=== PATIENT | female | born 1980 | race Caucasian/White ===

== ENCOUNTER 2023-05-09 08:20 | Outpatient (CLI) | payer OTHER, SELFPAY | END 2023-05-09 08:21 | disposition home or self-care (01) | LOC: NFLDREF 22:45 | PROVIDERS: PCP Family Medicine; Referring Provider Family Medicine; Visit Provider Family Medicine | DX: D34 Benign neoplasm of thyroid gland (principal); M54.50 Low back pain, unspecified; R53.83 Other fatigue; Z79.899 Other long term (current) drug therapy; E04.1 Nontoxic single thyroid nodule; Z87.898 Personal history of other specified conditions; Z13.6 Encounter for screening for cardiovascular disorders | CPT/HCPCS: 80053; 80061; 82378; 82652; 84443 ==

== ENCOUNTER 2023-05-15 13:35 | Outpatient (CLI) | payer OTHER, SELFPAY ==
--- NOTE | 2023-05-15 13:45 | CRLHL7_ITS ---
For Patients: As a result of the Century Cures Act, medical imaging exams and procedure reports are released immediately into your electronic medical record. You may view this report before your referring provider. If you have questions, please contact your health care provider. INDICATION: Low back pain. TECHNIQUE: Multiplanar multisequence noncontrast MR images acquired through the lumbar spine. COMPARISON: MRI lumbar spine 11/26/2018. FINDINGS: The lumbar lordosis is preserved. Mild leftward lumbar curvature. Vertebral heights maintained. No acute fracture. No T1 hypointense marrow replacing lesions. Normal conus terminates at an L1-2. T12-L1: No spinal canal or neural foraminal narrowing. L1-2: Mild disc degeneration. Shallow circumferential disc bulge. No spinal canal or neural foraminal narrowing. L2-3: Mild disc degeneration. Shallow left eccentric disc bulging and endplate spondylitic ridging. Small left dorsolateral annular fissure. No spinal canal narrowing. Mild left without right neural foraminal narrowing. L3-4: Trace retrolisthesis. Mild disc degeneration. Shallow posterior disc bulge with small dorsal annular fissure. Mild facet arthropathy. Minimal spinal canal narrowing. Minimal narrowing of the lateral recesses. No neural foraminal narrowing. L4-5: Jwcj-tx-ccmtktkg disc degeneration. Shallow posterior disc bulge. Bggy-zu-nfbeauwr facet arthropathy. Bilateral facet effusions. New edema within the right greater left posterior elements. Small subarticular synovial cysts measuring up to 5 mm contribute to worsening moderate left lateral recess narrowing. Minimal spinal canal narrowing. Mild left and minimal right neural foraminal narrowing. L5-S1: Nwmb-en-xlgjxuwe disc degeneration. Shallow posterior disc bulge. Jfzt-df-rhhhjxig facet arthropathy. No spinal canal or neural foraminal narrowing. IMPRESSION: 1. At L4-5, new small left subarticular synovial cysts contribute to worsening moderate left lateral recess narrowing with traversing left L5 nerve root encroachment/impingement. Xzan-gn-pnxgjipw facet arthropathy and bilateral facet joint effusions. New edema within the right greater left posterior elements is most compatible with a stress response. 2. Multilevel lumbar spondylosis is otherwise not significantly changed. No spinal canal or neural foraminal stenosis. Dictated by Silvestre Hammer MD @ 05/15/2023 10:41:38 PM (Electronically Signed)
--- NOTE | 2023-05-15 15:00 | CRLHL7_ITS ---
For Patients: As a result of the Century Cures Act, medical imaging exams and procedure reports are released immediately into your electronic medical record. You may view this report before your referring provider. If you have questions, please contact your health care provider. INDICATION: NON TOXIC THYROID NODULE COMPARISON: 06/27/2017, 06/24/2017 TECHNIQUE: Schuler scale and color Doppler images were acquired of the thyroid gland. FINDINGS: Circumscribed heterogeneously hypoechoic nodule midportion right thyroid lobe measuring 3.0 x 1.5 x 1.8 cm. Previously, this measured 2.3 x 1.5 x 1.5 cm. The right lobe measures 6.0 x 1.9 x 1.9 cm and the left lobe measures 5.2 x 0.9 x 1.3 cm in size. The isthmus measures 3 millimeters. The color Doppler images demonstrate normal vascularity. There is no evidence of cervical lymphadenopathy or parathyroid mass. IMPRESSION: Similar morphology and size of the nodule within the right thyroid lobe. This has been previously biopsied in 2017. Dictated by Nj Sandoval MD @ 05/16/2023 9:34:00 AM (Electronically Signed)
== END 2023-05-15 13:36 | disposition home or self-care (01) ==
LOC: MRI 13:35
PROVIDERS: PCP Family Medicine; Visit Provider Family Medicine
DX: M54.50 Low back pain, unspecified (principal); E04.1 Nontoxic single thyroid nodule; M47.896 Other spondylosis, lumbar region; M71.38 Other bursal cyst, other site
CPT/HCPCS: 72148; 76536

== ENCOUNTER 2023-09-24 13:11 | Outpatient (CLI) | payer OTHER, SELFPAY | END 2023-09-24 13:12 | disposition home or self-care (01) | PROVIDERS: PCP Family Medicine; Visit Provider Family Medicine | DX: H04.123 Dry eye syndrome of bilateral lacrimal glands (principal); M35.05 Sjogren syndrome with inflammatory arthritis | CPT/HCPCS: 86235 ==

== ENCOUNTER 2023-12-03 10:26 | Outpatient (CLI) | payer OTHER, SELFPAY | END 2023-12-03 10:27 | disposition home or self-care (01) | LOC: LKVREF 10:27 | PROVIDERS: PCP Family Medicine; Visit Provider Otolaryngology | DX: G25.81 Restless legs syndrome (principal) | CPT/HCPCS: 82728 ==

== ENCOUNTER 2023-12-24 19:26 | Outpatient (CLI) | payer OTHER, SELFPAY ==
--- NOTE | 2024-01-01 11:50 | W.PM.SLEEP ---
Sleep Study Details Details Interpreting Provider: Jean-Claude Date of Sleep Study: 12/24/23 Sleep Study Details: STUDY TYPE:? Home unattended ? BMI:? Not recorded ORDERING PROVIDER:? Shahid Rivas INDICATION:? Concerns about sleep apnea ? SLEEP SUMMARY:? 354.4 minutes monitored RESPIRATORY SUMMARY:? AHI 5.1. Majority of study was done in the supine position. Low oxygen 82 12.6% of study oxygen less than 90% Snoring 9.1% PERIODIC LIMB MOVEMENTS OF SLEEP:? Not recorded CARDIAC:? Range 43-93, mean 59.8 IMPRESSION:? Mild obstructive sleep apnea with significant desaturations RECOMMENDATION: If patient is symptomatic, treatment options consist of CPAP dental appliance possibly weight loss if indicated and/or airway expansion surgery.
== END 2023-12-24 19:27 | disposition home or self-care (01) ==
PROVIDERS: PCP Family Medicine; Visit Provider Otolaryngology
DX: G47.33 Obstructive sleep apnea (adult) (pediatric) (principal)
CPT/HCPCS: 95806

== ENCOUNTER 2024-02-13 15:54 | Outpatient (CLI) | payer OTHER, SELFPAY | END 2024-02-13 15:55 | disposition home or self-care (01) | LOC: LKVREF 15:58 | PROVIDERS: PCP Family Medicine; Visit Provider Family Medicine | DX: Z01.818 Encounter for other preprocedural examination (principal); Z87.898 Personal history of other specified conditions | CPT/HCPCS: 83735 ==

== ENCOUNTER 2024-02-21 07:40 | Day surgery (SDC) | payer OTHER, SELFPAY ==
[2024-02-21] VITALS (14 sets, daily range): BP systolic 97–111; BP diastolic 55–66; PULSE 48–75; RESP 12–16; TEMP 36.3–36.7; O2SAT 94–98; BMI 28.0
[2024-02-21] MEDS: LACTATED RINGERS 1000 ML 1,000 ML 100 ML IV (07:35)
--- OUTSIDE RECORDS SUMMARY | 2024-02-21 07:44 | XMS_ITS | Continuity of Care Document ---
Author Name Unknown Organization [facility] Address [address] [place] [address] Phone Care Team Providers Care Ambulatory Technologist Name Role Phone Atul Donald MD Unavailable Unavailable Advance Directives Directive Yes / No Effective Date File Name No Information Encounters Encounter Description Practice Location Reason(s) For Visit Diagnoses Date Provider Providers Copied on Encounter [facility], [address], [place], [address], [place] tel:[phone] [facility], No Information Odilon Pollard. [facility] [address], [place], [address], [place]. tel:[phone] Family History Family Member Type Diagnosis Age At Onset No Information Payers Payer name Insurance type Covered constitution party ID Authoriza tion(s) No Information Social History Type Description Quantity Date Captured Comments Sex Female Smoking Status No Information Chief Complaint And Reason For Visit No Information Reason For Referral Reason For Referral No Information Plan Of Treatment Date Type Action Status Appointment Tenzin Fortune BOOKED History Of Present Illness Encounter Date Complaint History Of Prese nt Illness No Information Functional Status Date Functional Assessmen t No Information Instructions Date Instruction Additional Infor mation No Information Assessments Type Assessment Date No Information Patient Care Teams Name Effective Dates (start - stop) Status Members No Information
--- OUTSIDE RECORDS SUMMARY | 2024-02-21 07:44 | XMS_ITS | Clinical Summary ---
Author Name Unknown Organization [place] Address [facility] [place] [address] Care Team Providers Care Spar Finisher Name Role Phone [facility]- Primary Care Provider Susan Doshi MD Unavailable Unavailable Allergies Active Allergy Reactions Criticality Noted Date Comments Acetaminophen 11/12/2003 Acetaminophen Headache 03/29/2021 Latex Rash Low 03/29/2021 Other Environmental Allergy 03/29/20 21 Nickel Medications Medication Sig Dispensed Refills Start Date End Date Status oxyCODONE (ROXICODONE) 5 MG tablet Take 1 tablet (5 mg) by mouth every 6 hours as needed for pain 6 tablet 03/29/2021 Active Active Problems Problem Noted Date Diagnosed Date CARDIOVASCULAR SCREENING; LDL GOAL LESS THAN 160 11/16/2009 Mild intermittent asthma Immunizations Name Administration Dates Next Due Influenza (IIV3) PF 10/01/2006 Social History Tobacco Use Types Packs/Day Years Used Date Smoking Tobacco: Former Cigarettes Q uit: 01/24/2007 Alcohol Use Standard Drinks/Week Comments Yes 0 (1 standard drink = 0.6 oz pur e alcohol) occasional Adolescent Education Answer Date Record ed Getting School Help Needed Not on file 07/14 Sex and Gender Information Value Date Recorded Sex Assigned at Not on file Gender Identity Not on file Sexual Orientation Not on file Last Filed Vital Signs Vital Sign Reading Time Taken Comments Blood Pressure 119/83 03/29/2021 6:30 PM CDT Pulse 95 03/29/2021 6:30 PM CDT Temperature 36.2 ??C (97.1 ??F) 03/29/2021 11:42 AM C DT Respiratory Rate 18 03/29/2021 11:42 AM CDT Oxygen Saturation 99% 03/29/2021 6:30 PM CDT Inhaled Oxygen Concentration - - Weight 81.6 kg (180 lb) 03/29/2021 11:42 AM CDT Height 167.6 cm (5' 6) 03/29/2021 11:42 AM CDT Body Mass Index 29.05 03/29/2021 11:42 AM CDT Plan of Treatment Health Maintenance Due Date Last Done Comments ADVANCE CARE PLANNING 1980 ANNUAL REVIEW OF HM ORDERS 1980 ASTHMA CONTROL TEST 1980 MAMMO SCREENING 1980 YEARLY PREVENTIVE VISIT 1980 Pneumococcal Vaccine: Pediatrics (0 to 5 Years) and At-Risk Patients (6 to 64 Years) (1 of 2 - PCV) 1986 HIV SCREENING 12/15/1995 HEPATITIS C SCREENING 1998 HEPATITIS B IMMUNIZATION (1 of 3 - 19+ 3-dose series) 12/15/1999 PAP 2001 DTAP/TDAP/TD IMMUNIZATION (1 - Tdap) 2005 ASTHMA ACTION PLAN 03/15/2007 03/15/2006 LIPID 2020 COVID-19 Vaccine (1 - season) 2023 PHQ-2 (once per calendar year) 2023 GLUCOSE 03/29/2024 03/29/2021, 04/2 , 01/24/2006, Additional history exists INFLUENZA VACCINE (Season Ended) 2024 07/15/2019, 06/29/2016, 08/03/2009, Additional history exists HPV IMMUNIZATION Aged Out No longer e ligible based on patient's age to complete this topic IPV IMMUNIZATION Aged Out No longer e ligible based on patient's age to complete this topic MENINGITIS IMMUNIZATION Aged Out No l onger eligible based on patient's age to complete this topic RSV MONOCLONAL ANTIBODY Aged Out No l onger eligible based on patient's age to complete this topic Procedures Procedure Name Priority Date/Time Associated Diagnosis Comments COMPREHENSIVE METABOLIC PANEL STAT 03/29/2021 11:49 AM CDT ASTHMA ACTION PLAN Routine 03/15/2006 8: 57 PM CDT Asthma - Mild Intermittent from Last 3 Months or Most Recently Relevant to Health Maintenance Results * (ABNORMAL) Comprehensive metabolic panel (03/29/2021 11:49 AM CDT) Sodium 136 133 - 144 mmol/L 03/29/2021 12:21 PM [facility] Potassium 4.1 3.4 - 5.3 mmol/L 03/29/2021 12:21 PM [facility] Chloride 107 94 - 109 mmol/L 03/29/2021 12:21 PM [facility] Carbon Dioxide 22 20 - 32 mmol/L 03/29/2021 12:29 PM [facility] Anion Gap 7 3 - 14 mmol/L 03/29/2021 12:29 PM [facility] Glucose 92 70 - 99 mg/dL 03/29/2021 12:29 PM [facility] Urea Nitrogen 13 7 - 30 mg/dL 03/29/2021 12:29 PM [facility] Creatinine 0.80 0.52 - 1.04 mg/dL 03/29/2021 12:29 PM [facility] GFR Estimate >90 >60 mL/min/{1. 73_m2} 03/29/2021 12:29 PM [facility] Comment: Non GFR Calc Starting 09/23/2018, serum creatinine based estimated GFR (eGFR) will be calculated using the Chronic Kidney Disease Epidemiology Collaboration (CKD-EPI) equation. GFR Estimate If Black >90 >60 mL/min/{1. 73_m2} 03/29/2021 12:29 PM [facility] Comment: GFR Calc Starting 09/23/2018, serum creatinine based estimated GFR (eGFR) will be calculated using the Chronic Kidney Disease Epidemiology Collaboration (CKD-EPI) equation. Calcium 9.6 8.5 - 10.1 mg/dL 03/29/2021 12:29 PM [facility] Bilirubin Total 1.4(H) 0.2 - 1.3 mg/dL 03/29/2021 12:29 PM [facility] Albumin 4.2 3.4 - 5.0 g/dL 03/29/2021 12:29 PM [facility] Protein Total 7.9 6.8 - 8.8 g/dL 03/29/2021 12:29 PM CDT [facility] Alkaline Phosphatase 89 40 - 150 U/L 03/29/2021 12:29 PM CDT [facility] ALT 21 0 - 50 U/L 03/29/2021 12:29 PM CDT [facility] AST 13 0 - 45 U/L 03/29/2021 12:29 PM CDT [facility] Blood 03/29/2021 11:4 9 AM CDT 03/29/2021 12:01 PM CDT Prashant Hernandez DO LAB - BLOOD JORDY ANDERSON [facility] [address] [place] [address], [facility] [phone] [facility] [address] [place] [address], [facility] [phone] from Last 3 Months or Most Recently Relevant to Health Maintenance Care Teams Spar Finisher Relationship Specialty Start Date End Date [facility]- [address] [place] [address] PCP - General 03/29/21 Susan Doshi MD [address] [address] 03/29/21
--- OUTSIDE RECORDS SUMMARY | 2024-02-21 07:44 | XMS_ITS | Referral Summary ---
Author Name Unknown Organization [place] Address [address] [place] [address] Care Team Providers Care Clearance Cutter Name Role Phone [facility]- Primary Care Provider Susan Doshi MD Unavailable [...] 03/29/2021 11:42 AM CDT Plan of Treatment Not on file Procedures Procedure Name Priority Date/Time Associated Diagnosis Comments COMPREHENSIVE METABOLIC PANEL STAT 03/29/2021 11:49 AM CDT ASTHMA ACTION PLAN Routine 03/15/2006 8: 57 PM CDT Asthma - Mild Intermittent from Last 3 Months or Most Recently Relevant to Health Maintenance Results * (ABNORMAL) Comprehensive metabolic panel (03/29/2021 11:49 AM CDT) Sodium 136 133 - 144 mmol/L 03/29/2021 12:21 PM [facility] Potassium 4.1 3.4 - 5.3 mmol/L 03/29/2021 12:21 PM [facility] Chloride 107 94 - 109 mmol/L 03/29/2021 12:21 PM [facility] Carbon Dioxide 22 20 - 32 mmol/L 03/29/2021 12:29 PM [facility] Anion Gap 7 3 - 14 mmol/L 03/29/2021 12:29 PM [facility] Glucose 92 70 - 99 mg/dL 03/29/2021 12:29 PM [facility] Urea Nitrogen 13 7 - 30 mg/dL 03/29/2021 12:29 PM [facility] Creatinine 0.80 0.52 - 1.04 mg/dL 03/29/2021 12:29 PM [facility] GFR Estimate >90 >60 mL/min/{1. 73_m2} 03/29/2021 12:29 PM [facility] Comment: Non GFR Calc Starting 09/23/2018, serum creatinine based estimated GFR (eGFR) will be calculated using the Chronic Kidney Disease Epidemiology Collaboration (CKD-EPI) equation. GFR Estimate If Black >90 >60 mL/min/{1. 73_m2} 03/29/2021 12:29 PM CDT [facility] Comment: GFR Calc Starting 09/23/2018, serum creatinine based estimated GFR (eGFR) will be calculated using the Chronic Kidney Disease Epidemiology Collaboration (CKD-EPI) equation. Calcium 9.6 8.5 - 10.1 mg/dL 03/29/2021 12:29 PM CDT [facility] Bilirubin Total 1.4(H) 0.2 - 1.3 mg/dL 03/29/2021 12:29 PM CDT [facility] Albumin 4.2 3.4 - 5.0 g/dL 03/29/2021 12:29 PM CDT [facility] Protein Total 7.9 6.8 - 8.8 g/dL 03/29/2021 12:29 PM CDT [facility] Alkaline Phosphatase 89 40 - 150 U/L 03/29/2021 12:29 PM T [facility] ALT 21 0 - 50 U/L 03/29/2021 12:29 PM CDT [facility] AST 13 0 - 45 U/L 03/29/2021 12:29 PM T [facility] Blood 03/29/2021 11:4 9 AM CDT 03/29/2021 12:01 PM CDT Prashant Hernandez DO LAB - BLOOD MARYANNE JUSTIN [facility] [address] [place] [address], [facility] [phone] [facility] [address] [place] [address], [facility] [phone] from Last 3 Months or Most Recently Relevant to Health Maintenance Care Teams Clearance Cutter Relationship Specialty Start Date End Date [facility]- [address] [place] [address] PCP - General 03/29/21 Susan Doshi MD [address] [place] [address] 03/29/21
[2024-02-21 08:11] LABS: Ur HCG Qualitative* Negative (Negative)
[2024-02-21] MEDS: OXYMETAZOLINE 0.05% NASAL SPRAY 2 SPRAY NOSTRIL-B (08:12)
[2024-02-21] MEDS: SODIUM CHLORIDE 0.9 % (FLUSH) 10 ML SYRINGE IVF (08:21)
[2024-02-21] MEDS: COCAINE HCL 4 % 4 ML SOLUTION NOSTRIL-B (09:16)
[2024-02-21] MEDS: AYR SALINE NASAL GEL 1 APPLIC NOSTRIL-B (09:32)
[2024-02-21] MEDS: MUPIROCIN 1 GM PACKET 1 APPLIC TOPICAL (09:33)
[2024-02-21] MEDS: BUPIVACAINE 0.5%/EPINEPHRINE 0.9 MG (30.9 ML) INJECTION (09:37)
--- NOTE | 2024-02-21 09:56 | W.ANESCHARGE ---
Anesthesia Charges Start Date/Time Anesthesia Start Date: 02/21/24 Anesthesia Start Time: 09:02 Stop Date/Time Anesthesia Stop Date: 02/21/24 Anesthesia Stop Time: 09:54
[2024-02-21] MEDS: MEPERIDINE 25 MG/ML INJ 12.5 MG IVP (10:05)
[2024-02-21] MEDS: fentaNYL 100 MCG/2 ML inj 50 MCG IVP (10:20)
--- NOTE | 2024-02-21 10:24 | W.PM.ENTPROC ---
Procedure Note Date of procedure: 02/21/24 Procedure: Preop diagnosis nasal headache, deviated septum, nasal obstruction, inferior turbinate hypertrophy, left middle turbinate allan bullosa Postprocedure diagnosis same Procedure nasal septoplasty submucous partial resection bilateral inferior turbinates, endoscopic partial resection left middle turbinate allan bullosa Under general endotracheal anesthesia patient was prepped and draped usual fashion the nose decongested and injected. A right hemitransfixion incision was made. Left anterior and posterior tunnels were created. A vertical incision was made through the cartilage anterior to the bone and a right posterior tunnel created. The rightward superior deflected portions of septal bone were resected trimmed and a large piece strep mom returned to intraseptal space. The left middle turbinate allan was incised along its inferolateral aspect and then crushed with the [place] forceps A stab incision was made in the anterior of the right inferior turbinate a tunnel created with a Sujey dissector. A conservative anterior submucous resection was performed with Drew forceps. The Coblation was used for hemostasis and to cauterize intramurally along the inferior 10%. This was repeated on the left side in identical fashion. The hemitransfixion was closed with 2 4-0 chromic sutures silastic stents secured with 3-0 nylon and Merocel packing placed in each side of the nose. The patient tolerated procedure well and was taken recovery in satisfactory condition blood loss less than 20 mL. Surgeon: Jose Cruz Bermeo MD
--- NOTE | 2024-02-21 10:36 | W.ANESCHARGE ---
Anesthesia Charges Start Date/Time Anesthesia Start Date: 02/21/24 Anesthesia Start Time: 09:02 Stop Date/Time Anesthesia Stop Date: 02/21/24 Anesthesia Stop Time: 09:54
[2024-02-21] MEDS: IBUPROFEN 200 MG TABLET PO (10:41)
[2024-02-21] MEDS: OXYCODONE 5 MG TABLET PO (10:41)
== END 2024-02-21 12:01 | disposition home or self-care (01) ==
LOC: OR 07:40
PROVIDERS: Anesthesiology; PCP Family Medicine; Visit Provider Otolaryngology
PROC: (CPT 31231; principal; 2024-02-21 09:00)
DX: J34.2 Deviated nasal septum (principal); J34.3 Hypertrophy of nasal turbinates; J34.89 Other specified disorders of nose and nasal sinuses; R51.9 Headache, unspecified
CPT/HCPCS: 30520; 30140; 31240; 00160; 81025; A9270; J0330; J1100; J2175; J2250; J2405; J2704; J3010; J7120

== ENCOUNTER 2024-03-10 10:01 | Outpatient (CLI) | payer OTHER, SELFPAY ==
--- OUTSIDE RECORDS SUMMARY | 2024-03-10 10:08 | XMS_ITS | Clinical Summary ---
Author Organization [place] Address [address] [place] [id number] Care Team Providers Care Patient Financial Services Coordinator Name Role Phone [facility]- Primary Care Provider Susan Doshi MD Unavailable Unavailable Allergies Active Allergy Reactions Criticality Noted Date Comments Acetaminophen 11/12/2003 Acetaminophen Headache 03/29/2021 Migraines, Nausea Latex Rash Low 03/29/2021 Other Environmental Allergy 03/29/20 21 Nickel Medications Medication Sig Dispensed Refills Start Date End Date Status oxyCODONE (OXY-IR) 5 MG capsule Take 5 mg by mouth every 6 hours as needed for severe pain Active albuterol (PROAIR HFA/PROVENTIL HFA/VENTOLIN HFA) 108 (90 Base) MCG/ACT inhaler Inhale 2 puffs into the lungs every 6 hours as needed for shortness of breath, wheezing or cough Active atenolol (TENORMIN) 25 MG tablet Take 25 mg by mouth as needed Active cyclobenzaprine (FLEXERIL) 10 MG tablet Take 10 mg by mouth 3 times daily as needed for muscle spasms Active flecainide (TAMBOCOR) 50 MG tablet Take 50 mg by mouth 2 times daily Active tiZANidine (ZANAFLEX) 4 MG tablet Take 4 mg by mouth 2 times daily as needed for muscle spasms Active traMADol (ULTRAM) 50 MG tablet Take 50 mg by mouth 3 times daily as needed for severe pain Active ibuprofen (ADVIL/MOTRIN) 200 MG tablet Take 600 mg by mouth every 6 hours as needed for pain Active magnesium oxide 200 MG TABS Take 600 mg by mouth at bedtime Active Fexofenadine HCl (SHEELA PO) Take 1 tablet by mouth daily Active Artificial Tear Ointment (LACRI-LUBE S.O.P. OP) Place 1 drop into both eyes at bedtime Active fluticasone-salm eterol (ADVAIR) 250-50 MCG/ACT inhaler Inhale 1 puff into the lungs every 12 hours Active metoclopramide (REGLAN) 5 MG tabletIndication s:Nausea Take 1 tablet (5 mg) by mouth 3 times daily as needed (nausea) 20 tablet 02/25/2024 Active oxyCODONE (ROXICODONE) 5 MG tablet Take 1 tablet (5 mg) by mouth every 6 hours as needed for pain 6 tablet 03/29/2021 02/22/2024 Discontinued( Med Rec(No AVS / No eCancel)) fluticasone (FLOVENT DISKUS) 250 MCG/ACT inhaler Inhale 1 puff into the lungs every 12 hours 02/22/2024 Discontinued( Med Rec(No AVS / No eCancel)) levofloxacin (LEVAQUIN) 500 MG tabletIndication s:History of nasal septoplasty,Bact eremia Take 1 tablet (500 mg) by mouth daily for 7 days 7 tablet 02/25/2024 03/03/2024 Active Problems Problem Noted Date Diagnosed Date Hypokalemia 02/22/2024 History of nasal septoplasty 02/22/2024 Recurrent syncope 02/22/2024 CARDIOVASCULAR SCREENING; LDL GOAL LESS THAN 160 11/16/2009 Mild intermittent asthma Encounters Date Type Department Care Team Description 02/22/2024 12:20 PM CDT - 02/25/2024 2:10 PM CDT Hospital Encounter [facility] Observation Dept [address] [place] [id number] Fam Rodriguez MD Abdissa, Mesfin E, MD Bacteremia (Primary Dx); Hypokalemia; Recurrent syncope; History of nasal septoplasty; Nausea Discharge Disposition: Home or Self Care 02/22/2024 Travel from Last 3 Months Immunizations Name Administration Dates Next Due Influenza [...] Sign Reading Time Taken Comments Blood Pressure 117/72 02/25/2024 12:13 PM CDT Pulse 54 02/25/2024 12:13 PM CDT Temperature 36.6 ??C (97.8 ??F) 02/25/2024 12:13 PM C DT Respiratory Rate 20 02/25/2024 12:13 PM CDT Oxygen Saturation 96% 02/25/2024 12:13 PM CDT Inhaled Oxygen Concentration - - Weight 75.3 kg (166 lb) 02/22/2024 12:32 PM CDT Height 165.1 cm (5' 5) 02/22/2024 12:32 PM CDT Body Mass Index 27.62 02/22/2024 12:32 PM CDT Plan of Treatment Health Maintenance Due Date Last Done Comments ADVANCE CARE PLANNING 1980 ANNUAL REVIEW OF HM ORDERS 1980 ASTHMA CONTROL TEST 1980 MAMMO SCREENING 1980 YEARLY PREVENTIVE VISIT 1980 Pneumococcal Vaccine: Pediatrics (0 to 5 Years) and At-Risk Patients (6 to 64 Years) (1 of 2 - PCV) 1986 HIV SCREENING 12/15/1995 HEPATITIS C SCREENING 1998 ASTHMA ACTION PLAN 03/15/2007 03/15/2006 LIPID 2020 PAP 07/11/2021 07/11/2018 PHQ-2 (once per calendar year) 2023 HEPATITIS B IMMUNIZATION (2 of 3 - Hep B Twinrix 3-dose series) 11/26/2023 10/29/2023 GLUCOSE 02/24/2027 02/25/2024, 02/05, 02/23/2024, Additional history exists DTAP/TDAP/TD IMMUNIZATION (2 - Td or Tdap) 06/26/2031 06/26/2021 INFLUENZA VACCINE Completed 10/29/2023, , 06/29/2016, Additional history exists COVID-19 Vaccine Completed 11/03/2023, 01/2022, 09/19/2021 HPV IMMUNIZATION Aged Out No longer e [...] Procedure Name Priority Date/Time Associated Diagnosis Comments CBC WITH PLATELETS & DIFFERENTIAL Routine 02/25/2024 7:04 AM CDT CBC WITH PLATELETS AND DIFFERENTIAL Routine 02/25/2024 7:04 AM CDT BASIC METABOLIC PANEL Routine 02/25/2024 7:04 AM CDT MAGNESIUM Routine 02/25/2024 7:04 AM CDT PROCALCITONIN Routine 02/24/2024 5:50 AM CDT BASIC METABOLIC PANEL Routine 02/24/2024 5:50 AM CDT CBC WITH PLATELETS Routine 02/24/2024 5: 50 AM CDT MAGNESIUM Routine 02/24/2024 5:50 AM CDT PROCALCITONIN Add-On 02/23/2024 5:28 AM CDT MAGNESIUM Add-On 02/23/2024 5:28 AM CDT CBC WITH PLATELETS Routine 02/23/2024 5: 28 AM CDT BASIC METABOLIC PANEL Routine 02/23/2024 5:28 AM CDT LACTIC ACID WHOLE BLOOD Early AM 02/22/2024 11:47 PM CDT CBC WITH PLATELETS & DIFFERENTIAL STAT 02/22/2024 10:32 PM CDT BLOOD CULTURE STAT 02/22/2024 10:32 PM CDT BLOOD CULTURE STAT 02/22/2024 10:32 PM CDT CBC WITH PLATELETS AND DIFFERENTIAL STAT 02/22/2024 10:32 PM CDT CRP INFLAMMATION STAT 02/22/2024 10:3 2 PM CDT LACTIC ACID WHOLE BLOOD WITH 1X REPEAT IN 2 HR WHEN >2 STAT 02/22/2024 10:02 PM CDT URINE CULTURE Add-On 02/22/2024 7:06 PM CDT ROUTINE UA WITH MICROSCOPIC STAT 02/22/2024 7:06 PM CDT XR CHEST 2 VIEWS STAT 02/22/2024 2:[address] HEAD W/O CONTRAST STAT 02/22/2024 2:18 PM CDT VERIGENE GN PANEL Routine 02/22/2024 1:5 7 PM CDT BLOOD CULTURE STAT 02/22/2024 1:57 PM CDT CBC WITH PLATELETS & DIFFERENTIAL STAT 02/22/2024 1:51 PM CDT BLOOD CULTURE STAT 02/22/2024 1:51 PM CDT MAGNESIUM Add-On 02/22/2024 1:51 PM CDT CBC WITH PLATELETS AND DIFFERENTIAL STAT 02/22/2024 1:51 PM CDT PROCALCITONIN STAT 02/22/2024 1:51 PM CDT COMPREHENSIVE METABOLIC PANEL STAT 02/22/2024 1:51 PM CDT EKG 12-LEAD, TRACING ONLY STAT 02/22/2024 1:20 PM CDT ASTHMA ACTION PLAN Routine 03/15/2006 8: 57 PM CDT Asthma - Mild Intermittent from Last 3 Months or Most Recently Relevant to Health Maintenance Results * (ABNORMAL) CBC with platelets and differential (02/25/2024 7:04 AM CDT) Only the most recent of3 resultswithin the time period is included. WBC Count 2.9(L) 4.0 - 11.0 10e3/uL 02/25/2024 7:46 AM CDT [facility] RBC Count 3.69(L) 3.80 - 5.20 10e6/uL 02/25/2024 7:46 AM CDT [facility] Hemoglobin 11.0(L) 11.7 - 15.7 g/dL 02/25/2024 7:46 AM CDT [facility] Hematocrit 32.2(L) 35.0 - 47.0 % 02/25/2024 7:46 AM CDT [facility] MCV 87 78 - 100 fL 02/25/2024 7:46 AM CDT [facility] MCH 29.8 26.5 - 33.0 pg 02/25/2024 7:46 AM CDT [facility] MCHC 34.2 31.5 - 36.5 g/dL 02/25/2024 7:46 AM CDT [facility] RDW 12.0 10.0 - 15.0 % 02/25/2024 7:46 AM CDT [facility] Platelet Count 95(L) 150 - 450 10e3/uL 02/25/2024 7:46 AM CDT [facility] % Neutrophils 44 % 02/25/2024 7:46 AM CDT [facility] % Lymphocytes 35 % 02/25/2024 7:46 AM CDT [facility] % Monocytes 12 % 02/25/2024 7:46 AM CDT [facility] % Eosinophils 7 % 02/25/2024 7:46 AM CDT [facility] % Basophils 1 % 02/25/2024 7:46 AM CDT [facility] % Immature Granulocytes 1 % 02/25/2024 7:46 AM CDT [facility] NRBCs per 100 WBC 0 <1 /100 024 7:46 AM CDT [facility] Absolute Neutrophils 1.3(L) 1.6 - 8.3 10e3/uL 02/25/2024 7:46 AM CDT [facility] Absolute Lymphocytes 1.0 0.8 - 5.3 10e3/uL 02/25/2024 7:46 AM CDT [facility] Absolute Monocytes 0.3 0.0 - 1.3 10e3/uL 02/25/2024 7:46 AM CDT [facility] Absolute Eosinophils 0.2 0.0 - 0.7 10e3/uL 02/25/2024 7:46 AM CDT [facility] Absolute Basophils 0.0 0.0 - 0.2 10e3/uL 02/25/2024 7:46 AM CDT [facility] Absolute Immature Granulocytes 0.0 <=0.4 10e3/uL 02/25/2024 7:46 AM CDT [facility] Absolute NRBCs 0.0 10e3/uL 02/25/2024 7:46 AM CDT [facility] Blood STRUCTURE OF LEFT UPPER LIMB / Unknown Venipuncture / Unknown 02/25/2024 7:04 AM CDT 02/25/2024 7:21 AM CDT Socrates Bay MD LAB - BLOOD ORDERABL ES Performing Organization Address City/[facility]/ZIP Co de Phone Number [facility] Lab [address] Lab (1st floor, no room number) [place] [address] * Magnesium (02/25/2024 7:04 AM CDT) Only the most recent of4 resultswithin the time period is included. Magnesium 2.0 1.7 - 2.3 mg/dL 02/25/2024 7:52 AM CDT [facility] Blood STRUCTURE OF LEFT UPPER LIMB / Unknown Venipuncture / Unknown 02/25/2024 7:04 AM CDT 02/25/2024 7:21 AM CDT Socrates Bay MD LAB - BLOOD ORDERABL ES [facility] Lab [address] Lab (1st floor, no room number) [place] [id number] * (ABNORMAL) Basic metabolic panel (02/25/2024 7:04 AM CDT) Only the most recent of3 resultswithin the time period is included. Sodium 142 135 - 145 mmol/L 02/25/2024 7:52 AM CDT LABORATORY Comment:Reference intervals for this test were updated on 07/02/2023 to more accurately reflect our healthy population. There may be differences in the flagging of prior results with similar values performed with this method. Interpretation of those prior results can be made in the context of the updated reference intervals. Potassium 3.4 3.4 - 5.3 mmol/L 02/25/2024 7:52 AM CDT LABORATORY Chloride 109(H) 98 - 107 mmol/L 02/25/2024 7:52 AM CDT LABORATORY Carbon Dioxide (CO2) 23 22 - 29 mmol/L 02/25/2024 7:52 AM CDT LABORATORY Anion Gap 10 7 - 15 mmol/L 02/25/2024 7:52 AM CDT LABORATORY Urea Nitrogen 10.3 6.0 - 20.0 mg/dL 02/25/2024 7:52 AM CDT LABORATORY Creatinine 0.82 0.51 - 0.95 mg/dL 02/25/2024 7:52 AM CDT LABORATORY GFR Estimate >90 >60 mL/min/1. 73m2 02/25/2024 7:52 AM CDT LABORATORY Calcium 8.2(L) 8.6 - 10.0 mg/dL 02/25/2024 7:52 AM CDT LABORATORY Glucose 94 70 - 99 mg/dL 02/25/2024 7:52 AM CDT LABORATORY Blood STRUCTURE OF LEFT UPPER LIMB / Unknown Venipuncture / Unknown 02/25/2024 7:04 AM CDT 02/25/2024 7:21 AM CDT Socrates Bay MD LAB - BLOOD ORDERABL ES LABORATORY [facility] Acute Care Lab [address] Lab (1st floor, no room number) [place] [address], [facility] [[email or web address] * (ABNORMAL) Procalcitonin (02/24/2024 5:50 AM CDT) Only the most recent of3 resultswithin the time period is included. [facility] Signature Procalcitonin 3.76(H) <0.50 ng/mL 02/24/2024 6:38 AM CDT LABORATORY Comment: Interpretation and Recommendations <0.5 ng/mL: Systemic bacterial infection unlikely. Local bacterial infection is possible. 0.5-1.99 ng/mL: Systemic bacterial infection possible, but various other conditions are known to induce PCT as well. >=2.00 ng/mL: Systemic bacterial infection likely, unless other causes are known. Decision to start antibiotics should not be based on procalcitonin level alone. See Procalcitonin Guidance document for more details. [email or web address] Factors that may affect PCT levels (not all-inclusive): ?? - Increased PCT level ?Severe trauma/myrick ?Invasive surgery ?Cooling therapy after cardiac arrest/surgery ?Treatment with agents which stimulate cytokines ?Acute kidney injury ?Chronic kidney disease and end stage renal disease ?Acute graft vs host disease ?Non-specific shock causing decreased organ perfusion and/or infarction ?? - Normal or unchanged PCT level ?Early in infections (if low and infection is suspected, repeating in 6-12 hours is recommended) ?Chronic infections (endocarditis, osteomyelitis, prosthetic device/graft infections) ?Localized infections (cellulitis, wound infections, intra-abdominal abscess) Note: PCT has not been extensively studied in /, pediatrics, severe immunosuppression, and cystic fibrosis. Blood STRUCTURE OF LEFT UPPER LIMB / Unknown Venipuncture / Unknown 02/24/2024 5:50 AM CDT 02/24/2024 6:02 AM CDT Socrates Bay MD LAB - BLOOD ORDERABL ES LABORATORY [facility] Care Lab [address] Lab (1st floor, no room number) [place] [address], [facility] [[email or web address]] * (ABNORMAL) CBC with platelets (02/24/2024 5:50 AM CDT) Only the most recent of2 resultswithin the time period is included. WBC Count 3.4(L) 4.0 - 11.0 10e3/uL 02/24/2024 6:39 AM CDT [facility] RBC Count 3.66(L) 3.80 - 5.20 10e6/uL 02/24/2024 6:39 AM CDT [facility] Hemoglobin 10.9(L) 11.7 - 15.7 g/dL 02/24/2024 6:39 AM CDT [facility] Hematocrit 32.9(L) 35.0 - 47.0 % 02/24/2024 6:39 AM CDT [facility] MCV 90 78 - 100 fL 02/24/2024 6:39 AM CDT [facility] MCH 29.8 26.5 - 33.0 pg 02/24/2024 6:39 AM CDT [facility] MCHC 33.1 31.5 - 36.5 g/dL 02/24/2024 6:39 AM CDT [facility] RDW 12.2 10.0 - 15.0 % 02/24/2024 6:39 AM CDT [facility] Platelet Count 75(L) 150 - 450 10e3/uL 02/24/2024 6:39 AM CDT [facility] Blood STRUCTURE OF LEFT UPPER LIMB / Unknown Venipuncture / Unknown 02/24/2024 5:50 AM CDT 02/24/2024 6:02 AM CDT Socrates Bay MD LAB - BLOOD ORDERABL ES LABORATORY [facility] Acute Care Lab [address] Lab (1st floor, no room number) [address] * Lactic acid whole blood (02/22/2024 11:47 PM CDT) Lactic Acid 0.9 0.7 - 2.0 mmol/L 02/22/2024 11:51 PM CDT LABORATORY Blood STRUCTURE OF LEFT HAND / Unknown Venipuncture / Unknown 02/22/2024 11:47 PM CDT 02/22/2024 11:49 PM CDT La Castaneda PA-C LAB - BLOOD ORDER DOT LABORATORY [facility] Acute Care Lab [address] Lab (1st floor, no room number) [address] * (ABNORMAL) CRP inflammation (02/22/2024 10:32 PM CDT) CRP Inflammation 42.29(H) <5.00 mg/L 02/22/2024 10:58 PM CDT LABORATORY Blood STRUCTURE OF LEFT UPPER LIMB / Unknown Venipuncture / Unknown 02/22/2024 10:32 PM CDT 02/22/2024 10:37 PM CDT La Castaneda PA-C LAB - BLOOD ORDER DOT LABORATORY [facility] Lab [address] (1st floor, no room number) [address] * Blood Culture Arm, Left (02/22/2024 10:32 PM CDT) Only the most recent of4 resultswithin the time period is included. Culture No Growth 02/28/2024 1:05 AM CDT [facility] Blood STRUCTURE OF LEFT UPPER LIMB / Unknown Venipuncture / Unknown 02/22/2024 10:32 PM CDT 02/22/2024 10:37 PM CDT La Castaneda PA-C LAB - MICRO GENER AL ORDERABLES [facility] Inf. Diseases Diag. Lab [address] [place] [address], [facility] [[email or web address]] * (ABNORMAL) Lactic Acid Whole Blood w/ 1x repeat in 2 hrs when >2 (02/22/2024 10:02 PM CDT) Lactic Acid, Initial 2.4(H) 0.7 - 2.0 mmol/L 02/22/2024 10:07 PM CDT LABORATORY Blood STRUCTURE OF LEFT HAND / Unknown Venipuncture / Unknown 02/22/2024 10:02 PM CDT 02/22/2024 10:05 PM CDT La Castaneda PA-C LAB - BLOOD ORDER DOT LABORATORY [facility] Acute Care Lab [address] Lab (1st floor, no room number) [place] [address], [facility] [[email or web address]] * (ABNORMAL) UA with Microscopic (02/22/2024 7:06 PM CDT) Color Urine [place](A) Colorless, Straw, Light Yellow, Yellow 02/22/2024 7:42 PM CDT LABORATORY Appearance Urine Slightly Cloudy(A) Clear 02/22/2024 7:42 PM CDT LABORATORY Glucose Urine Negative Negative mg/dL 02/22/2024 7:42 PM CDT LABORATORY Bilirubin Urine Negative Negative 7:42 PM CDT LABORATORY Ketones Urine Negative Negative mg/dL 02/22/2024 7:42 PM CDT LABORATORY Specific [place]o Urine 1.018 1.003 - 1.035 02/22/2024 7:42 PM CDT LABORATORY Blood Urine Large(A) Negative 02/22/2024 7:42 PM CDT LABORATORY pH Urine 5.5 5.0 - 7.0 02/22/2024 7:42 PM CDT LABORATORY Protein Albumin Urine 30(A) Negative mg/dL 02/22/2024 7:42 PM CDT [facility] Urobilinogen Urine Normal Normal, 2.0 mg/dL 02/22/2024 7:42 PM CDT [facility] Nitrite Urine Negative Negative 02/22/2024 7:42 PM CDT [facility] Leukocyte Esterase Urine Moderate(A) Negative 02/22/2024 7:42 PM CDT [facility] Bacteria Urine Few(A) None Seen /HPF 02/22/2024 7:42 PM CDT [facility] Mucus Urine Present(A) None Seen /LPF 02/22/2024 7:42 PM CDT [facility] RBC Urine >182(H) <=2 /HPF 02/22/2024 7:42 PM CDT [facility] WBC Urine 31(H) <=5 /HPF 02/22/2024 7:42 PM CDT [facility] Squamous Epithelials Urine 3(H) <=1 /HPF 02/22/2024 7:42 PM CDT [facility] Urine MID-STREAM URINE SPECIMEN / Unknown Non-blood Collection / Unknown 02/22/2024 7:06 PM CDT 02/22/2024 7:17 PM CDT La Castaneda PA-C LAB - URINE ORDER DOT LABORATORY [facility] Care Lab [address] [facility] [facility] Lab (1st floor, no room number) [place] [address], [facility] [[email or web address]] * (ABNORMAL) Urine Culture (02/22/2024 7:06 PM CDT) Culture 10,000-50,000 CFU/mL Streptococcus agalactiae (Group B Streptococcus)(A ) HEATHER 02/24/2024 7:48 AM CDT [facility] Comment: This organism is susceptible to ampicillin, penicillin, vancomycin and the cephalosporins. If treatment is required AND your patient is allergic to penicillin, contact the Microbiology Lab within 5 days to request susceptibility testing. This organism may be significant in OB patients, however, it is part of the normal urogenital mona. Culture 10,000-50,000 CFU/mL Mixture of urogenital mona 02/24/2024 7:48 AM CDT [facility] Urine MID-STREAM URINE SPECIMEN / Unknown Non-blood Collection / Unknown 02/22/2024 7:06 PM CDT 02/22/2024 7:17 PM CDT La Castaneda PA-C LAB - MICRO GENER AL ORDERABLES [facility] Inf. Diseases Diag. Lab [address] [place] [address] * Chest XR, PA & LAT (02/22/2024 2:34 PM CDT) Anatomical Region Laterality Modality Chest Digital Radiogra phy 02/22/2024 2:34 PM CDT Impressions 02/22/2024 3:01 PM CDT IMPRESSION: Negative chest. Narrative 02/22/2024 3:01 PM CDT EXAM: XR CHEST 2 VIEWS LOCATION: [facility] DATE: 02/22/2024 INDICATION: rigors, recent surgery, ? PNA COMPARISON: 04/08/2023 Procedure Note Pantera Soriano MD - 02/22/2024 EXAM: XR CHEST 2 VIEWS LOCATION: [facility] DATE: 02/22/2024 INDICATION: rigors, recent surgery, ? PNA COMPARISON: 04/08/2023 IMPRESSION: Negative chest. Fam Rodriguez MD IMG DIAGNOSTIC IM AGING ORDERABLES * Head CT w/o contrast (02/22/2024 2:18 PM CDT) Anatomical Region Laterality Modality Head, SUBRAD CT NEURO, SUBRA D CT NEURO, UMP CT NEURO, RAD CT Computed Tomography 02/22/2024 2:18 PM CDT Impressions 02/22/2024 2:49 PM CDT IMPRESSION: 1. ??Normal head CT. Narrative 02/22/2024 2:49 PM CDT EXAM: CT HEAD W/O CONTRAST LOCATION: [facility] DATE: 02/22/2024 INDICATION: recent rhinoplasty, ? Seizure COMPARISON: MRI brain 01/24/2006 TECHNIQUE: Routine CT Head without IV contrast. Multiplanar reformats. Dose reduction techniques were used. FINDINGS: INTRACRANIAL CONTENTS: No intracranial hemorrhage, extraaxial collection, or mass effect. ??No CT evidence of acute infarct. Normal parenchymal attenuation. Normal ventricles and sulci. VISUALIZED ORBITS/SINUSES/MASTOIDS: No intraorbital abnormality. No paranasal sinus mucosal disease. No middle ear or mastoid effusion. BONES/SOFT TISSUES: No scalp hematoma. No skull fracture. Procedure Note Jesse Patel MD - 02/22/2024 EXAM: CT HEAD W/O CONTRAST LOCATION: [facility] DATE: 02/22/2024 INDICATION: recent rhinoplasty, ? Seizure COMPARISON: MRI brain 01/24/2006 TECHNIQUE: Routine CT Head without IV contrast. Multiplanar reformats.Dose reduction techniques were used. FINDINGS: INTRACRANIAL CONTENTS: No intracranial hemorrhage, extraaxial collection,or mass effect. No CT evidence of acute infarct. Normal parenchymalattenuation. Normal ventricles and sulci. VISUALIZED ORBITS/SINUSES/MASTOIDS: No intraorbital abnormality. Noparanasal sinus mucosal disease. No middle ear or mastoid effusion. BONES/SOFT TISSUES: No scalp hematoma. No skull fracture. IMPRESSION: 1. Normal head CT. Fam Rodriguez MD [facility] ORDERABLES * (ABNORMAL) Verigene GN Panel (02/22/2024 1:57 PM CDT) Acinetobacter species Not Detected Not Detected 02/23/2024 9:59 AM CDT [facility] Citrobacter species Not Detected Not Detected 02/23/2024 9:59 AM CDT [facility] Enterobacter species Not Detected Not Detected 02/23/2024 9:59 AM CDT [facility] Proteus species Not Detected Not Detected 02/23/2024 9:59 AM CDT [facility] Escherichia coli Not Detected Not Detected 02/23/2024 9:59 AM CDT [facility] Klebsiella pneumoniae Not Detected Not Detected 02/23/2024 9:59 AM CDT [facility] Klebsiella oxytoca Detected(A) Not Detected 02/23/2024 9:59 AM CDT [facility] Comment:Positive for Klebsie lla oxytoca by Verigene multiplex nucleic acid test. Final identification and antimicrobial susceptibility testing will be verified by standard methods. Pseudomonas aeruginosa Not Detected Not Detected 02/23/2024 9:59 AM CDT [facility] CTX-M Not Detected Not Detected, NA 02/23/2024 9:59 AM CDT [facility] KPC Not Detected Not Detected, NA 02/23/2024 9:59 AM CDT [facility] NDM Not Detected Not Detected, NA 02/23/2024 9:59 AM CDT [facility] VIM Not Detected Not Detected, NA 02/23/2024 9:59 AM CDT [facility] IMP Not Detected Not Detected, NA 02/23/2024 9:59 AM CDT [facility] OXA Not Detected Not Detected, NA 02/23/2024 9:59 AM CDT [facility] Blood STRUCTURE OF RIGHT UPPER LIMB / Unknown Venipuncture / Unknown 02/22/2024 1:57 PM CDT 02/22/2024 2:01 PM CDT Narrative [facility] - 02/23/2024 9:59 AM CDT Specimen tested with Verigene multiplex, gram-negative blood culture nucleic acid test for the following targets: Acinetobacter species, Citrobacter species, Enterobacter species, Proteus species, Escherichia coli, Klebsiella pneumoniae, Klebsiella oxytoca, Pseudomonas aeruginosa, and the following resistance markers: CTX-M, KPC, NDM, VIM, IMP and OXA. Fam Rodriguez MD LAB - MICRO GENER AL ORDERABLES [facility] Inf. Diseases Diag. Lab [address] [place] [address] * (ABNORMAL) Comprehensive metabolic panel (02/22/2024 1:51 PM CDT) [facility] Sodium 140 135 - 145 mmol/L 02/22/2024 2:25 PM CDT LABORATORY Comment:Reference intervals for this test were updated on 07/02/2023 to more accurately reflect our healthy population. There may be differences in the flagging of prior results with similar values performed with this method. Interpretation of those prior results can be made in the context of the updated reference intervals. Potassium 2.9(L) 3.4 - 5.3 mmol/L 02/22/2024 2:25 PM CDT [facility] Carbon Dioxide (CO2) 20(L) 22 - 29 mmol/L 02/22/2024 2:25 PM CDT [facility] Anion Gap 13 7 - 15 mmol/L 02/22/2024 2:25 PM CDT LABORATORY Urea Nitrogen 10.4 6.0 - 20.0 mg/dL 02/22/2024 2:25 PM CDT [facility] Creatinine 0.76 0.51 - 0.95 mg/dL 02/22/2024 2:25 PM CDT [facility] GFR Estimate >90 >60 mL/min/1. 73m2 02/22/2024 2:25 PM CDT [facility] Calcium 8.2(L) 8.6 - 10.0 mg/dL 02/22/2024 2:25 PM CDT [facility] Chloride 107 98 - 107 mmol/L 02/22/2024 2:25 PM [facility] Glucose 107(H) 70 - 99 mg/dL 02/22/2024 2:25 PM [facility] Alkaline Phosphatase 67 40 - 150 U/L 02/22/2024 2:25 PM [facility] Comment:Reference intervals for this test were updated on 08/20/2023 to more accurately reflect our healthy population. There may be differences in the flagging of prior results with similar values performed with this method. Interpretation of those prior results can be made in the context of the updated reference intervals. AST 36 0 - 45 U/L 02/22/2024 2:25 PM [facility] Comment:Reference intervals for this test were updated on 03/18/2023 to more accurately reflect our healthy population. There may be differences in the flagging of prior results with similar values performed with this method. Interpretation of those prior results can be made in the context of the updated reference intervals. ALT 18 0 - 50 U/L 02/22/2024 2:25 PM CDT [facility] Comment:Reference intervals for this test were updated on 03/18/2023 to more accurately reflect our healthy population. There may be differences in the flagging of prior results with similar values performed with this method. Interpretation of those prior results can be made in the context of the updated reference intervals. Protein Total 5.5(L) 6.4 - 8.3 g/dL 02/22/2024 2:25 PM CDT [facility] Albumin 3.8 3.5 - 5.2 g/dL 02/22/2024 2:25 PM CDT [facility] Bilirubin Total 1.2 <=1.2 mg/dL 02/22/2024 2:25 PM CDT [facility] Blood STRUCTURE OF LEFT UPPER LIMB / Unknown Venipuncture / Unknown 02/22/2024 1:51 PM CDT 02/22/2024 2:01 PM CDT Fam Rodriguez MD LAB - BLOOD ORDER DOT [facility] [address] Lab (1st floor, no room number) [place] [id number] * EKG 12-lead, tracing only (02/22/2024 1:20 PM CDT) Systolic Blood Pressure mmHg RADIOLOGY RESULTS Diastolic Blood Pressure mmHg RADIOLOGY RESULTS Ventricular Rate 99 BPM RAD IOLOGY RESULTS Atrial Rate 99 BPM RADIOLOG Y RESULTS ME Interval 198 ms RADIOLOG Y RESULTS QRS Duration 92 ms RADIOLO GY RESULTS QT 372 ms RADIOLOGY RESULTS QTc 477 ms RADIOLOGY RESULTS P [place] 12 degrees RADIOLOGY RESULTS R AXIS 46 degrees RADIOLOGY RESULTS T [place] -16 degrees RADIOLOGY RESULTS Interpretation ECG Sinus rhythm Incomplete right bundle branch block Cannot rule out Anterior infarct , age undetermined Abnormal ECG When compared with ECG of 24-JAN-2006 18:40, Significant changes have occurred Confirmed by - EMERGENCY ROOM, PHYSICIAN ([id number]), editor & co founder ERIN HERNANDEZ ([id number]) on 02/24/2024 7:24:18 AM RADIOLOGY RESULTS 02/22/2024 1:20 PM CDT 02/24/2024 7:24 AM CDT Adan Pitt MD ECG ORDERABLES RADIOLOGY RESULTS from Last 3 Months Advance Directives For more information, please contact: [phone] * Full Code (Latest Code Status on File) Date Activated Date Inactivated Comments 02/22/2024 5:56 PM 02/25/2024 4:10 PM All basic an d advanced life-sustaining interventions are performed as appropriate Question Answer Comments Code status determined by: Discussion with hope nt/ legal decision maker Care Teams Patient Financial Services Coordinator Relationship Specialty Start Date End Date [facility]- [address] [place] [id number] PCP - General 03/29/21 Susan Doshi MD [id number] [place] [id number] 03/29/21
--- OUTSIDE RECORDS SUMMARY | 2024-03-10 10:09 | XMS_ITS | Encounter Summary ---
Author Organization [facility] Address [address] [place] [id number] Care Team Providers Care Retarder Operator Name Role Phone [facility]- Primary Care Provider Susan Doshi MD Unavailable Unavailable Reason for Visit * Reason Comments Syncope * Auth/Cert (Routine) Specialty Diagnoses / Procedures Referred By Anabelle mendoza Referred To Contact Med Surg Diagnoses Hypokalemia History of nasal septoplasty Recurrent syncope Hypokalemia Recurrent syncope History of nasal septoplasty Observation Dept [address] [place] [address] Referral ID Status Reason Start Date Expiration Date Visits Re quested Visits Authorized [id number] 1 1 Encounter Details Date Type Department Care Team (Late st Contact Info) Description 02/22/2024 12:20 PM CDT - 02/25/2024 2:10 PM CDT Hospital Encounter [facility] Observation Dept [address] [place] [address] Fam Rodriguez MD [facility] [address] [place], [place] [id number] [place] MD [address] [place] [address] Bacteremia (Primary Dx); Hypokalemia; Recurrent syncope; History of nasal septoplasty; Nausea Discharge Disposition: Home or Self Care Social History Tobacco Use Types Packs/Day Years [...] on file Sexual Orientation Not on file documented as of this encounter Last Filed Vital Signs Vital Sign Reading [...] Mass Index 27.62 02/22/2024 12:32 PM CDT documented in this encounter Discharge Summaries * Jamil Bravo MD - 02/25/2024 1:41 PM CDT [facility] Hospitalist Discharge Summary Date of Admission: 02/22/2024 Date of Discharge: 02/25/2024 Discharging Provider: Jamil Bravo MD Discharge Service: Hospitalist Service Discharge Diagnoses S/p septoplasty Bacteremia Clinically Significant Risk Factors # Overweight: Estimated body mass index is 27.62 kg/m?? as calculated from the following: Height as of this encounter: 1.651 m (5' 5). Weight as of this encounter: 75.3 kg (166 lb). Follow-ups Needed After Discharge Follow-up Appointments Follow-up and recommended labs and tests Follow up with your ENT within the next week Unresulted Labs Ordered in the Past 30 Days of this Admission Date and Time Order Name Status Description 02/22/2024 10:07 PM Blood Culture Arm, Left Preliminary 02/22/2024 10:07 PM Blood Culture Arm, Left Preliminary 02/22/2024 1:41 PM Blood Culture Arm, Left Preliminary These results will be followed up by Hospital[facility] group Discharge Disposition Discharged to home Condition at discharge: Stable Hospital Course Tenzin Fortune is a 43 year old female with past medical history significant for 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 Pt states she underwent septoplasty and some work on her turbinate for chronic migraine and sinusitis. She received general anesthesia (first time) and discharged same day with PRN pain meds and keflex. She c/o quite a bit of plain last night and episodes of n/v and she also had an episode of syncope but came to after a min or so. No loss of urinary or bowel control. Today, she continued her pain meds, still felt off, had episodes of n/v and by 10am she started to have involuntary shakes that sounds like rigors. She continues to have episodic shakes with episodesof near to full syncope lasting several seconds. No tonic clonic like description. They called the light bulb tester to bring her to ED. Work up in the ED reveals low grade temp of 99.8, soft BPs in the 80-90's. HR 80's labs were largely unremarkable except for hypokalemia and hypomagnesemia procalcitonin was slightly elevated at 0.69but had normal white count and mild anemia 11.3. Blood culture x 2 obtained, EKG shows sinus rhythmwith incomplete right bundle branch block. CT of the head was negative and chest x-ray was also negative. She was given IVF and dose of abx (as she was unable to tolerate PO keflex) and recommend admission overnight. Acute postoperative sepsis status post septoplasty Klebsiella sepsis Near syncope - blood culture grew Klebsiella oxytoca - has been on zosyn (Day 3.5) - likely can narrow antibiotics, but ID already involved, so I will let them change the antibiotics - I called ENT and spoke with Dr Bergman: he will see patient and likely remove packing - has now been afebrile Postoperative septoplasty for deviated septum - surgery was on 02/20 - was at [facility] (Dr. Mueller) Electrolyte imbalance - hypokalemia, hypomagnesemia, hypocalcemia - replace Pancytopenia - likely from sepsis, will monitor - will need repeat labs as an outpatient Edema - upper and LE swollen likely from fluid resuscitation - IVF stopped - IV lasix was given yesterday, will not dose further Chronic neck and back pain - stable, continue home med - seen by pain team Asthma - home inhalers resumed History of symptomatic PVCs - on atenolol - has had some bradycardia - parameters placed ID saw the patient. She is able to discharge with oral levofloxacin. Consultations This Hospital Stay INFECTIOUS DISEASES IP CONSULT PHARMACY TO [facility] ENT IP CONSULT PAIN MANAGEMENT ADULT IP CONSULT ENT IP CONSULT Code Status Full Code Time Spent on this Encounter I, Jamil Bravo MD, personally saw the patient today and spent greater than 30 minutes discharging this patient. Jamil Bravo MD [facility] [address] [facility] [id number] Physical Exam Vital Signs: Temp: 97.8 ??F (36.6 ??C) Temp src: Axillary BP: 117/72 Pulse: 54 Resp: 20 SpO2: 96 % O2 Device: None (Room air) Weight: 166 lbs 0 oz See note Primary Care Physician [facility] Discharge Orders Reason for your hospital stay Bacteremia (Klebsiella) likely due to recent ENT procedure Follow-up and recommended labs and tests Follow up with your ENT within the next week Activity Your activity upon discharge: activity as tolerated Diet Follow this diet upon discharge: Orders Placed This Encounter Regular Diet Adult Significant Results and Procedures Most Recent 3 CBC's: Recent Labs Lab Test 02/25/24 0704 02/24/24 0550 02/23/24 0528 WBC 2.9* 3.4* 7.1 HGB 11.0* 10.9* 10.4* MCV 87 90 90 PLT 95* 75* 83* Most Recent 3 BMP's: Recent Labs Lab Test 02/25/24 0704 02/24/24 0550 02/23/24 0528 NA 142 140 137 POTASSIUM 3.4 3.7 3.5 CHLORIDE 109* 109* 110* CO2 23 20* 21* BUN 10.3 7.7 7.4 CR 0.82 0.89 0.75 ANIONGAP 10 11 6* MERISSA 8.2* 7.7* 7.7* GLC 94 97 104* Most Recent 2 LFT's: Recent Labs Lab Test 02/22/24 1351 03/29/21 1149 AST 36 13 ALT 18 21 ALKPHOS 67 89 BILITOTAL 1.2 1.4* , Results for orders placed or performed during the hospital encounter of 02/22/24 Chest XR, PA & LAT Narrative EXAM: XR CHEST 2 VIEWS LOCATION: [facility] DATE: 02/22/2024 INDICATION: rigors, recent surgery, ? PNA COMPARISON: 04/08/2023 Impression IMPRESSION: Negative chest. Head CT w/o contrast Narrative EXAM: CT HEAD W/O CONTRAST LOCATION: [facility] DATE: 02/22/2024 INDICATION: recent rhinoplasty, ? Seizure COMPARISON: MRI brain 01/24/2006 TECHNIQUE: Routine CT Head without IV contrast. Multiplanar reformats. Dose reduction techniques were used. FINDINGS: INTRACRANIAL CONTENTS: No intracranial hemorrhage, extraaxial collection, or mass effect. No CT evidence of acute infarct. Normal parenchymal attenuation. Normal ventricles and sulci. VISUALIZED ORBITS/SINUSES/MASTOIDS: No intraorbital abnormality. No paranasal sinus mucosal disease. No middle ear or mastoid effusion. BONES/SOFT TISSUES: No scalp hematoma. No skull fracture. Impression IMPRESSION: 1. Normal head CT. Discharge Medications Current Discharge Medication List START taking these medications Details levofloxacin (LEVAQUIN) 500 MG tablet Take 1 tablet (500 mg) by mouth daily for 7 days Qty: 7 tablet, Refills: 0 Associated Diagnoses: History of nasal septoplasty; Bacteremia metoclopramide (REGLAN) 5 MG tablet Take 1 tablet (5 mg) by mouth 3 times daily as needed (nausea) Qty: 20 tablet, Refills: 0 Associated Diagnoses: Nausea CONTINUE these medications which have NOT CHANGED Details albuterol (PROAIR HFA/PROVENTIL HFA/VENTOLIN HFA) 108 (90 Base) MCG/ACT inhaler Inhale 2 puffs intothe lungs every 6 hours as needed for shortness of breath, wheezing or cough Artificial Tear Ointment (LACRI-LUBE S.O.P. OP) Place 1 drop into both eyes at bedtime atenolol (TENORMIN) 25 MG tablet Take 25 mg by mouth as needed cyclobenzaprine (FLEXERIL) 10 MG tablet Take 10 mg by mouth 3 times daily as needed for muscle spasms Fexofenadine HCl (SHEELA PO) Take 1 tablet by mouth daily flecainide (TAMBOCOR) 50 MG tablet Take 50 mg by mouth 2 times daily fluticasone-salmeterol (ADVAIR) 250-50 MCG/ACT inhaler Inhale 1 puff into the lungs every 12 hours ibuprofen (ADVIL/MOTRIN) 200 MG tablet Take 600 mg by mouth every 6 hours as needed for pain magnesium oxide 200 MG TABS Take 600 mg by mouth at bedtime oxyCODONE (OXY-IR) 5 MG capsule Take 5 mg by mouth every 6 hours as needed for severe pain tiZANidine (ZANAFLEX) 4 MG tablet Take 4 mg by mouth 2 times daily as needed for muscle spasms traMADol (ULTRAM) 50 MG tablet Take 50 mg by mouth 3 times daily as needed for severe pain Allergies Allergies Allergen Reactions Acetaminophen Acetaminophen Headache Migraines, Nausea Other Environmental Allergy Nickel Latex Rash documented in this encounter Medications at Time of Discharge Medication Sig Dispensed Refills Start Date End Date albuterol (PROAIR HFA/PROVENTIL HFA/VENTOLIN HFA) 108 (90 Base) MCG/ACT inhaler Inhale 2 puffs into the lungs every 6 hours as needed for shortness of breath, wheezing or cough Artificial Tear Ointment (LACRI-LUBE S.O.P. OP) Place 1 drop into both eyes at bedtime atenolol (TENORMIN) 25 MG tablet Take 25 mg by mouth as needed cyclobenzaprine (FLEXERIL) 10 MG tablet Take 10 mg by mouth 3 times daily as needed for muscle spasms Fexofenadine HCl (SHEELA PO) Take 1 tablet by mouth daily flecainide (TAMBOCOR) 50 MG tablet Take 50 mg by mouth 2 times daily fluticasone-salmeterol (ADVAIR) 250-50 MCG/ACT inhaler Inhale 1 puff into the lungs every 12 hours ibuprofen (ADVIL/MOTRIN) 200 MG tablet Take 600 mg by mouth every 6 hours as needed for pain magnesium oxide 200 MG TABS Take 600 mg by mouth at bedtime metoclopramide (REGLAN) 5 MG tabletIndications:Naus ea Take 1 tablet (5 mg) by mouth 3 times daily as needed (nausea) 20 tablet 02/25/2024 oxyCODONE (OXY-IR) 5 MG capsule Take 5 mg by mouth every 6 hours as needed for severe pain tiZANidine (ZANAFLEX) 4 MG tablet Take 4 mg by mouth 2 times daily as needed for muscle spasms traMADol (ULTRAM) 50 MG tablet Take 50 mg by mouth 3 times daily as needed for severe pain levofloxacin (LEVAQUIN) 500 MG tabletIndications:Hist ory of nasal septoplasty,Bacteremia Take 1 tablet (500 mg) by mouth daily for 7 days 7 tablet 02/25/2024 03/03/2024 documented as of this encounter Progress Notes * Janki Bliss APRN PUMP REBUILDER - 02/25/2024 1:24 PM CDT [facility] ACUTE PAIN SERVICE [facility] PAIN Progress Note Assessment/Plan: Tenzin Fortune is a 43 year old female who was admitted on 02/22/2024. Pain team was asked to see the patient for pain after septoplasty. Admitted for shaking. History of asthma, PVCs, chronic back pain from arthritis. Patient has not used any opioid in 24 hours PLAN: 1) Pain is consistent with acute pain secondary to septoplasty for deviated septum in the setting of new diagnosis of sepsis as well as chronic back pain. Multimodal Medication Therapy Topical: Add lidocaine ointment 5% 4 times daily to back, neck, SI joint NSAID'S: Scheduled ibuprofen Steroids: None Muscle Relaxants: Flexeril 3 times daily as needed (home medication) Adjuvants: Allergies noted to Tylenol, magnesium oxide 600 mg at bedtime Opioids: Dilaudid 2 mg every 3 hours as needed IV Pain medication: None Non-medication interventions: Ice, Heat, Rest, and Distraction (TV, Music, Reading) Constipation Prophylaxis: Scheduled and prn: Senna-docusate -[place] [employer] pulled from system on 02/25/2024. This indicates 02/21/2024 oxycodone 5 mg #30 02/13/2024 tramadol 50 mg #30 07/19/2023 gabapentin 300 mg #30 05/06/2023 oxycodone 5 mg #30 Discharge Recommendations - We recommend prescribing the following at the time of discharge: To be determined Subjective: Describes pain as 2-3/10 and aching in her face as well as aching chronic low back pain. She reports her pain has been managed with ibuprofen. She denies chest pain or shortness of breath. She reports swelling of her lower extremities. She reports fevers and rigors improved since admission. Visit/Communication Style Visit/Communication Style Virtual (Video) communication was used to evaluate Tenzin. Tenzin consented to the use of video communication. Video START time: 1100, 02/25/2024 Video STOP time: 1130, 02/25/2024 Patient's location: [facility] Provider's location during the visit: [facility] Principal Problem: <principal problem not specified> Patient Active Problem List Diagnosis Mild intermittent asthma CARDIOVASCULAR SCREENING; LDL GOAL LESS THAN 160 Hypokalemia History of nasal septoplasty Recurrent syncope Objective: History Drug Use Not on file Tobacco Use Smoking status: Former Packs/day: 0.00 Types: Cigarettes Quit date: 01/24/2007 Years since quittin.0 Smokeless tobacco: None Vital signs in last 24 hours: BP 117/72 (BP Location: Right arm) Pulse 54 Temp 97.8 ??F (36.6 ??C) (Axillary) Resp 20 Ht 1.651 m (5' 5) Wt 75.3 kg (166 lb) SpO2 96% BMI 27.62 kg/m?? Weight: Vitals: 02/22/24 1232 Weight: 75.3 kg (166 lb) Weight change: Body mass index is 27.62 kg/m??. Intake/Output last 3 shifts: I/O last 3 completed shifts: In: 480 [P.O.:480] Out: - Intake/Output this shift: No intake/output data recorded. Review of Systems: As per subjective, all others negative. Physical Exam: Exam limited telemedicine visit General Appearance: Alert, cooperative, no distress, at bedside Head: Normocephalic, without obvious abnormality, atraumatic Eyes: PERRL, conjunctiva/corneas clear, EOM's intact Nose: Nasal packing in place Throat: Lips, mucosa, and tongue normal; teeth and gums normal Neck: Supple, symmetrical, trachea midline Back: Symmetric, no curvature, ROM normal Lungs: Room air, respirations unlabored Neurologic: Alert and oriented X 3, Moves all 4 extremities Psych: Affect is appropriate Imaging: Reviewed I have personally reviewed pertinent notes, labs, tests, and radiologic imaging in patient's chart. Labs: Reviewed I have personally reviewed pertinent notes, labs, tests, and radiologic imaging in patient's chart. Notes: Reviewed I have personally reviewed pertinent notes, labs, tests, and radiologic imaging in patient's chart. Total time spent 35 minutes with greater than 50% in consultation, education and coordination of care. Also discussed with RN. Treatment plan includes: multimodal pain approach, Hospital Medicine Service for medical management, ID. Patient educated regarding: multimodal pain approach and medications as listed above. Elements of Medical Decision Making as described above. Acute or chronic illness or injury or surgery. High risk therapy including opioids, high risk drug therapy including oral and/or parenteral controlled substances. Patient is understanding of the plan. All questions and concerns addressed to patient's satisfaction. GAEL Saha APRNP-C Acute Care Pain Management Program [facility] Saturday-Saturday 8a-4p Page via [employer] or NextPage[employer] * Paulina Franco MD - 02/25/2024 1:05 PM CDT Images from the original note were not included. 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 Pt states she underwent septoplasty and some work on her turbinate for chronic migraine and sinusitis. She received general anesthesia (first time) and discharged same day with PRN pain meds and keflex. She had an episode of syncope but came to after a min or so. Then started to chills UA grossly abnormal UC grew Gp B strep only 10-50,000 cfu/ml BC with GNR: kleb Leukopenia likely related to zosyn Recommendations: Discontinue Zosyn Treat with Levaquin 500 mg daily for klebsiella oxytoca bacteremia for another week Patient will need to follow with her ENT surgeon, sinus symptoms are consistent with post op pain related to recent septoplasty Follow CBC/diff Recommendations were discussed with the hospitalist service ID will sign off Paulina Franco MD Interval History Patient was seen, chart reviewed Nasal packing was removed, complains of headache and fullness in sinuses, Physical Exam Temp: 97.8 ??F (36.6 ??C) Temp src: Axillary BP: 117/72 Pulse: 54 Resp: 20 SpO2: 96 % O2 Device: None (Room air) Vitals: 02/22/24 1232 Weight: 75.3 kg (166 lb) Vital Signs with Ranges Temp: [97.3 ??F (36.3 ??C)-98.3 ??F (36.8 ??C)] 97.8 ??F (36.6 ??C) Pulse: [51-56] 54 Resp: [16-20] 20 BP: (106-123)/(56-72) 117/72 SpO2: [93 %-96 %] 96 % Constitutional: Awake, alert, cooperative, no apparent distress Lungs: non labored breathing HEENT minimal bloody nasal drainage Skin: No rashes, no cyanosis, no edema Other: Medications Current Facility-Administered Medications Medication Dose Route Frequency Provider Last Rate Last Admin Current Facility-Administered Medications Medication Dose Route Frequency Provider Last Rate Last Admin atenolol (TENORMIN) tablet 25 mg 25 mg Oral Daily La Castaneda PA-C famotidine (PEPCID) tablet 10 mg 10 mg Oral Daily Berkley Pichardo APRN PUMP REBUILDER 10 mg at 02/25/24 0830 fluticasone-vilanterol (BREO ELLIPTA) 100-25 MCG/ACT inhaler 1 puff 1 puff Inhalation BID Tonja Manriquez PA-C 1 puff at 02/25/24 0830 ibuprofen (ADVIL/MOTRIN) tablet 800 mg 800 mg Oral Q6H Berkley Pichardo APRN PUMP REBUILDER 800 mg at02/25/24 0830 lidocaine (XYLOCAINE) 5 % ointment Topical 4x Daily Janki Bliss APRN CNP magnesium oxide (MAG-OX) half-tab 600 mg 600 mg Oral At Bedtime Castaneda, La Esteban PA-C 600 mg at 02/24/24 2122 metoclopramide (REGLAN) injection 10 mg 10 mg Intravenous Q6H Castaneda, La Esteban PA-C 10 mg at 02/25/24 0830 piperacillin-tazobactam (ZOSYN) 3.375 g vial to attach to NS 100 mL bag 3.375 g Intravenous Q8H Castaneda, La Esteban PA-C 200 mL/hr at 02/23/24 1536 3.375 g at 02/25/24 0852 polyethylene glycol (MIRALAX) Packet 17 g 17 g Oral Daily Berkley Pichardo APRN CNP 17 g at 02/24/24 1126 scopolamine (TRANSDERM) 72 hr patch 1 patch 1 patch Transdermal Q72H Castaneda, La Esteban PA-C 1 patch at 02/22/24 2102 And scopolamine (TRANSDERM-SCOP) Patch in Place Transdermal Q8H Castaneda, La Esteban PA-C senna-docusate (SENOKOT-S/PERICOLACE) 8.6-50 MG per tablet 2 tablet 2 tablet Oral BID Berkley Pichardo APRN CNP 2 tablet at 02/24/24 1905 Data All microbiology laboratory data reviewed. Recent Labs Lab Test 02/25/24 0704 02/24/24 0550 02/23/24 0528 WBC 2.9* 3.4* 7.1 HGB 11.0* 10.9* 10.4* HCT 32.2* 32.9* 30.7* MCV 87 90 90 PLT 95* 75* 83* Recent Labs Lab Test 02/25/24 0704 02/24/24 0550 02/23/24 0528 CR 0.82 0.89 0.75 02/22/2024223102/25/2024 0106 Blood Culture Arm, Left [[id number]] Blood from Arm, Left Preliminary result Component Value Culture No growth after 2 days P 02/22/2024223102/25/2024 0106 Blood Culture Arm, Left [[id number]] Blood from Arm, Left Preliminary result Component Value Culture No growth after 2 days P 02/22/2024 1906 02/24/2024 0748 Urine Culture [[id number]] (Abnormal) Urine, Midstream Final result Component Value Culture 10,000-50,000 CFU/mL Streptococcus agalactiae (Group B Streptococcus) Abnormal This organism is susceptible to ampicillin, penicillin, vancomycin and the cephalosporins. If treatment is required AND your patient is allergic to penicillin, contact the Microbiology Lab within 5 days to request susceptibility testing. This organism may be significant in OB patients, however, it is part of the normal urogenital mona. 10,000-50,000 CFU/mL Mixture of urogenital mona 02/22/2024 1357 02/25/2024 0753 Blood Culture Arm, Right [[id number]] (Abnormal) Blood from Arm, Right Final result Component Value Culture Positive on the 1st day of incubation Abnormal Klebsiella oxytoca Panic 1 of 2 bottles Susceptibility Klebsiella oxytoca HEATHER Amikacin <=2 ug/mL Susceptible * Ampicillin Resistant 1 Ampicillin/ Sulbactam 4 ug/mL Susceptible Cefepime <=1 ug/mL Susceptible Cefoxitin <=4 ug/mL Susceptible * Ceftazidime <=1 ug/mL Susceptible Ceftriaxone <=1 ug/mL Susceptible Ciprofloxacin <=0.25 ug/mL Susceptible Extended Spectrum Beta-Lactamase Negative ug/mL ESBL Negative * Gentamicin <=1 ug/mL Susceptible Levofloxacin <=0.12 ug/mL Susceptible Meropenem <=0.25 ug/mL Susceptible Nitrofurantoin 32 ug/mL Susceptible * Piperacillin/Tazobactam <=4 ug/mL Susceptible Tobramycin <=1 ug/mL Susceptible Trimethoprim/Sulfamethoxazole <=1/19 ug/mL Susceptible * Jamil Bravo MD - 02/25/2024 11:35 AM CDT [facility] Medicine Progress Note - Hospitalist Service Date of Admission: 02/22/2024 Assessment & Plan Tenzin Fortune is a 43 year old female with past medical history significant for 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 Found to have Klebsiella bacteremia Acute postoperative sepsis status post septoplasty Klebsiella sepsis Near syncope - blood culture grew Klebsiella oxytoca - has been on zosyn (Day 3.5) - likely can narrow antibiotics, but ID already involved, so I will let them change the antibiotics - I called ENT and spoke with Dr Bergman: he will see patient and likely remove packing - has now been afebrile Postoperative septoplasty for deviated septum - surgery was on 02/20 - was at [facility] (Dr. Mueller) Electrolyte imbalance - hypokalemia, hypomagnesemia, hypocalcemia - replace Pancytopenia - likely from sepsis, will monitor - will need repeat labs as an outpatient Edema - upper and LE swollen likely from fluid resuscitation - IVF stopped - IV lasix was given yesterday, will not dose further Chronic neck and back pain - stable, continue home med - seen by pain team Asthma - home inhalers resumed History of symptomatic PVCs - on atenolol - has had some bradycardia - parameters placed in room Diet: Regular Diet Adult DVT Prophylaxis: Low Risk/Ambulatory with no VTE prophylaxis indicated Packer Catheter: Not present Lines: None Cardiac Monitoring: None Code Status: Full Code Clinically Significant Risk Factors # Thrombocytopenia: Lowest platelets = 75 in last 2 days, will monitor for bleeding # Overweight: Estimated body mass index is 27.62 kg/m?? as calculated from the following: Height as of this encounter: 1.651 m (5' 5). Weight as of this encounter: 75.3 kg (166 lb)., PRESENT ON ADMISSION # Asthma: noted on problem list Disposition Plan Medically Ready for Discharge: Anticipated Tomorrow Jamil Bravo MD Hospitalist Service [facility] Securely message with [employer] (more info) Text page via [employer] Paging/Directory Interval History Patient feeling better. No chest pain or sob. Still has swelling of legs. Some abdo discomfort. Eating and drinking Physical Exam Vital Signs: Temp: 97.3 ??F (36.3 ??C) Temp src: Oral BP: 123/69 Pulse: 56 Resp: 16 SpO2: 96 % O2 Device: None (Room air) Weight: 166 lbs 0 oz Constitutional: awake, alert, cooperative, no apparent distress, and appears stated age Eyes: Lids and lashes normal, pupils equal, round and reactive to light, extra ocular muscles intact, sclera clear, conjunctiva normal ENT: Normocephalic, without obvious abnormality, atraumatic, sinuses nontender on palpation, external ears without lesions, oral pharynx with moist mucous membranes, tonsils without erythema or exudates, gums normal and good dentition.L nare packing in place (not bloody) Respiratory: No increased work of breathing, good air exchange, clear to auscultation bilaterally, no crackles or wheezing Cardiovascular: Normal apical impulse, regular rate and rhythm, normal S1 and S2, no S3 or S4, and no murmur noted GI: No scars, normal bowel sounds, soft, non-distended, non-tender, no masses palpated, no hepatosplenomegally Medical Decision Making 30 MINUTES SPENT BY ME on the date of service doing chart review, history, exam, documentation & further activities per the note. Data I have personally reviewed the following data over the past 24 hrs: 2.9 (L) \ 11.0 (L) / 95 (L) 142 109 (H) 10.3 / 94 3.4 23 0.82 \ Imaging results reviewed over the past 24 hrs: No results found for this or any previous visit (from the past 24 hour(s)). * Socrates Bay MD - 02/24/2024 10:31 AM CDT Images from the original note were not included. [facility] Hospitalist Progress Note Socrates Bay M.D., M.B.A. 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 Pt states she underwent septoplasty and some work on her turbinate for chronic migraine and sinusitis. She received general anesthesia (first time) and discharged same day with PRN pain meds and keflex. She c/o quite a bit of plain last night and episodes of n/v and she also had an episode of syncope but came to after a min or so. No loss of urinary or bowel control. Today, she continued her pain meds, still felt off, had episodes of n/v and by 10am she started to have involuntary shakes that sounds like rigors. She continues to have episodic shakes with episodesof near to full syncope lasting several seconds. No tonic clonic like description. They called the light bulb tester to bring her to ED. Work up in the ED reveals low grade temp of 99.8, soft BPs in the 80-90's. HR 80's labs were largely unremarkable except for hypokalemia and hypomagnesemia procalcitonin was slightly elevated at 0.69but had normal white count and mild anemia 11.3. Blood culture x 2 obtained, EKG shows sinus rhythmwith incomplete right bundle branch block. CT of the head was negative and chest x-ray was also negative. She was given IVF and dose of abx (as she was unable to tolerate PO keflex) and recommend admission overnight. Problem List with Assessment and Plan: Acute postoperative sepsis status post septoplasty Klebsiella sepsis Episodic body shakes with associated episodes of near syncope/syncope -- Patient was admitted and was treated with IV fluids, IV antibiotics and cultures obtained. She was also treated with nausea and vomiting treatment protocol. Monitor on telemetry -- Blood culture grew Klebsiella and she was continued with Zosyn. -- Currently she is afebrile, no nausea or pain.. Will continue Zosyn, infectious disease consultedfor klebsiella sepsis , and strep in urine culture. I called and spoke with Dr Mueller ,her ENT doctor -who graciously agreed to come and remove the pack at bedside. Will continue zosyn for now and monitor culture.ID following for antibiotic plan Postoperative day #4 following septoplasty for deviated septum --Surgery is done by ENT physician at [facility] and was sent home the same day. --Patient was discharged on Keflex per ENT which was changed to IV Zosyn here --Currently her nasal packing is in place and plan removal today Electrolyte imbalance -Hypokalemia Hypomagnesemia, hypocalcemia -Monitor and replace as needed Pancytopenia -- likely from sepsis , will monitor Edema -- upper and LE swollen likely from fluid resuscitation , will stop IVF , 40 MG IV once Chronic medical problems: Chronic neck and back pain-stable, continue home med Asthma: Home inhalers resumed History of symptomatic PVCs on atenolol. She has been bradycardic, continue atenolol with parameters. May discontinue telemetry monitoring Incidental Findings: No new specific thyroid nodule but needs to be followed as an outpatient with primary care provider and ultrasound exam Plan for today: Continue antibiotic, monitor cultures, ID consultation, IV fluids and continue current care VTE Prophylaxis: Ambulate every shift Code Status: Full Code Diet: Regular Diet Adult Packer Catheter: Not present Family updated today: Yes at bedside Medically Ready for Discharge: Anticipate discharge in the next 1-2 days pending abx plan and progress Addendum --I spoke with infectious service regarding antibiotic plan. Patient may be transitioned to oral antibiotic tomorrow pending sensitivity result. If that is the case, Dr Mueller ,her ENT doctor (telephone #[phone]) can arrange clinic appointment in the morning to remove the pack. If in case patient is not able to discharge tomorrow and needs to stay in the hospital for IV antibiotics, ENT physician consultation needs to be requested to remove the pack since Dr Mueller does not have privileges to come to [facility] Interval History (Subjective): Patient is seen and examined by me today and medical record reviewed.Overnight events noted and care discussed with nursing staff. She is feeling better.No fever or chills. Subsequent culture negative. Her ENT doctor contacted Physical Exam: Last Vital Signs: BP 130/79 (BP Location: Right arm) Pulse 60 Temp 98.3 ??F (36.8 ??C) (Oral) Resp 18 Ht 1.651 m (5' 5) Wt 75.3 kg (166 lb) SpO2 92% BMI 27.62 kg/m?? No intake/output data recorded. Wt Readings from Last 5 Encounters: 02/22/24 75.3 kg (166 lb) 03/29/21 81.6 kg (180 lb) 09/07/08 68 kg (150 lb) 08/03/08 71.7 kg (158 lb) 11/18/07 72.1 kg (159 lb) Constitutional: Awake, alert, cooperative, no apparent distress Respiratory: Clear to auscultation bilaterally, no crackles or wheezing Cardiovascular: Regular rate and rhythm, normal S1 and S2, and no murmur noted Abdomen: Normal bowel sounds, soft, non-distended, non-tender Skin: No new rashes, no cyanosis, dry to touch Neuro: Alert with no new focal weakness Extremities: No edema Other(s): All other systems: Negative Medications: All current medications were reviewed with changes reflected in problem list. Data: All new lab and imaging data was reviewed. Data reviewed today: I reviewed all new labs and imaging results over the last 24 hours. I personally reviewed Recent Labs Lab 02/24/24 0502/23/2452702/22/24 2232 WBC 3.4* 7.1 6.4 HGB 10.9* 10.4* 10.0* HCT 32.9* 30.7* 29.9* MCV 90 90 90 PLT 75* 83* 99* No results for input(s): CULT in the last 168 hours. Recent Labs Lab 02/24/2454902/23/2452702/22/24 1351 NA 140 137 140 POTASSIUM 3.7 3.5 2.9* CHLORIDE 109* 110* 107 CO2 20* 21* 20* ANIONGAP 11 6* 13 GLC 97 104* 107* BUN 7.7 7.4 10.4 CR 0.89 0.75 0.76 GFRESTIMATED 82 >90 >90 MERISSA 7.7* 7.7* 8.2* MAG 1.9 1.8 1.5* PROTTOTAL -- -- 5.5* ALBUMIN -- -- 3.8 BILITOTAL -- -- 1.2 ALKPHOS -- -- 67 AST -- -- 36 ALT -- -- 18 Recent Labs Lab 02/24/2450 02/23/2452702/22/24 1351 GLC 97 104* 107* No results for input(s): INR in the last 168 hours. No results for input(s): TROPONIN, TROPI, TROPR in the last 168 hours. Invalid input(s): TROP, TROPONINIES Recent Results (from the past 48 hour(s)) Head CT w/o contrast Narrative EXAM: CT HEAD W/O CONTRAST LOCATION: [facility] DATE: 02/22/2024 INDICATION: recent rhinoplasty, ? Seizure COMPARISON: MRI brain 01/24/2006 TECHNIQUE: Routine CT Head without IV contrast. Multiplanar reformats. Dose reduction techniques were used. FINDINGS: INTRACRANIAL CONTENTS: No intracranial hemorrhage, extraaxial collection, or mass effect. No CT evidence of acute infarct. Normal parenchymal attenuation. Normal ventricles and sulci. VISUALIZED ORBITS/SINUSES/MASTOIDS: No intraorbital abnormality. No paranasal sinus mucosal disease. No middle ear or mastoid effusion. BONES/SOFT TISSUES: No scalp hematoma. No skull fracture. Impression IMPRESSION: 1. Normal head CT. Chest XR, PA & LAT Narrative EXAM: XR CHEST 2 VIEWS LOCATION: [facility] DATE: 02/22/2024 INDICATION: rigors, recent surgery, ? PNA COMPARISON: 04/08/2023 Impression IMPRESSION: Negative chest. COVID Status: COVID-19 PCR Results No data to display COVID-19 Antibody Results, Testing for Immunity No data to display Disclaimer: This note consists of symbols derived from keyboarding, dictation and/or voice recognition software. As a result, there may be errors in the script that have gone undetected. Please consider this when interpreting information found in this chart. * Phill Francis MD - 02/24/2024 10:13 AM CDT Infectious disease brief note Chart checked cultures reviewed Group B strep in the urine but Klebsiella in the blood so source for the Klebsiella bacteremia is most likely not urine Follow-up with ENT eval For now continue Lana Francis MD Infectious Disease * Socrates Bay MD - 02/23/2024 11:22 AM CDT Images from the original note were not included. [facility] Hospitalist Progress Note Socrates Bay M.D., M.B.A. 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 Pt states she underwent septoplasty and some work on her turbinate for chronic migraine and sinusitis. She received general anesthesia (first time) and discharged same day with PRN pain meds and keflex. She c/o quite a bit of plain last night and episodes of n/v and she also had an episode of syncope but came to after a min or so. No loss of urinary or bowel control. Today, she continued her pain meds, still felt off, had episodes of n/v and by 10am she started to have involuntary shakes that sounds like rigors. She continues to have episodic shakes with episodesof near to full syncope lasting several seconds. No tonic clonic like description. They called the light bulb tester to bring her to ED. Work up in the ED reveals low grade temp of 99.8, soft BPs in the 80-90's. HR 80's labs were largely unremarkable except for hypokalemia and hypomagnesemia procalcitonin was slightly elevated at 0.69but had normal white count and mild anemia 11.3. Blood culture x 2 obtained, EKG shows sinus rhythmwith incomplete right bundle branch block. CT of the head was negative and chest x-ray was also negative. She was given IVF and dose of abx (as she was unable to tolerate PO keflex) and recommend admission overnight. Problem List with Assessment and Plan: Acute postoperative sepsis status post septoplasty Klebsiella sepsis Episodic body shakes with associated episodes of near syncope/syncope -- Patient was admitted and was treated with IV fluids, IV antibiotics and cultures obtained. She was also treated with nausea and vomiting treatment protocol. Monitor on telemetry -- Blood culture grew Klebsiella and she was continued with Zosyn. -- Currently she is afebrile, nausea, pain. No nausea or vomiting. Will continue Zosyn, infectious disease consulted to assist with further antibiotic management. Will get a hold of ENT physician tomorrow for further recommendations Postoperative day #3 following septoplasty for deviated septum --Surgery is done by ENT physician at [facility] and was sent home the same day. --Patient was discharged on Keflex per ENT which was changed to IV Zosyn here --Currently her nasal packing is in place and it is dressed. Continue to monitor for now, will discuss with ENT physician tomorrow if the packing is to be removed Electrolyte imbalance -Hypokalemia Hypomagnesemia, hypocalcemia -Monitor and replace as needed Chronic medical problems: Chronic neck and back pain-stable, continue home med Asthma: Home inhalers resumed History of symptomatic PVCs on atenolol. She has been bradycardic, continue atenolol with parameters. Continue telemetry monitoring for now Incidental Findings: No new specific thyroid nodule but needs to be followed as an outpatient with primary care provider and ultrasound exam Plan for today: Continue antibiotic, monitor cultures, ID consultation, IV fluids and continue current care VTE Prophylaxis: Ambulate every shift Code Status: Full Code Diet: Regular Diet Adult Packer Catheter: Not present Family updated today: Yes at bedside Medically Ready for Discharge: Anticipated in 2-4 Days Interval History (Subjective): Patient is seen and examined by me today and medical record reviewed.Overnight events noted and care discussed with nursing staff. Patient care assumed by me this morning. She denies any fever or chills. No significant pain. Labs and data, studies reviewed indicating sepsis. ID consulted and patient continued with IV antibiotic with Zosyn. Patient and family requesting private room and this was discussed with charge nurse Physical Exam: Last Vital Signs: BP 101/42 (BP Location: Left arm) Pulse 54 Temp 98.2 ??F (36.8 ??C) (Axillary) Resp 16 Ht 1.651 m (5' 5) Wt 75.3 kg (166 lb) SpO2 95% BMI 27.62 kg/m?? I/O last 3 completed shifts: In: 770 [P.O.:770] Out: 350 [Urine:350] Wt Readings from Last 5 Encounters: 02/22/24 75.3 kg (166 lb) 03/29/21 81.6 kg (180 lb) 09/07/08 68 kg (150 lb) 08/03/08 71.7 kg (158 lb) 11/18/07 72.1 kg (159 lb) Constitutional: Awake, alert, cooperative, no apparent distress Respiratory: Clear to auscultation bilaterally, no crackles or wheezing Cardiovascular: Regular rate and rhythm, normal S1 and S2, and no murmur noted Abdomen: Normal bowel sounds, soft, non-distended, non-tender Skin: No new rashes, no cyanosis, dry to touch Neuro: Alert with no new focal weakness Extremities: No edema Other(s): All other systems: Negative Medications: All current medications were reviewed with changes reflected in problem list. Data: All new lab and imaging data was reviewed. Data reviewed today: I reviewed all new labs and imaging results over the last 24 hours. I personally reviewed Recent Labs Lab 02/23/2452702/22/24223102/22/24 1351 WBC 7.1 6.4 5.1 HGB 10.4* 10.0* 11.3* HCT 30.7* 29.9* 33.4* MCV 90 90 90 PLT 83* 99* 117* No results for input(s): CULT in the last 168 hours. Recent Labs Lab 02/23/2452702/22/24 1351 NA 137 140 POTASSIUM 3.5 2.9* CHLORIDE 110* 107 CO2 21* 20* ANIONGAP 6* 13 GLC 104* 107* BUN 7.4 10.4 CR 0.75 0.76 GFRESTIMATED >90 >90 MERISSA 7.7* 8.2* MAG 1.8 1.5* PROTTOTAL -- 5.5* ALBUMIN -- 3.8 BILITOTAL -- 1.2 ALKPHOS -- 67 AST -- 36 ALT -- 18 Recent Labs Lab 02/23/2452702/22/24 1351 GLC 104* 107* No results for input(s): INR in the last 168 hours. No results for input(s): TROPONIN, TROPI, TROPR in the last 168 hours. Invalid input(s): TROP, TROPONINIES Recent Results (from the past 48 hour(s)) Head CT w/o contrast Narrative EXAM: CT HEAD W/O CONTRAST LOCATION: [facility] DATE: 02/22/2024 INDICATION: recent rhinoplasty, ? Seizure COMPARISON: MRI brain 01/24/2006 TECHNIQUE: Routine CT Head without IV contrast. Multiplanar reformats. Dose reduction techniques were used. FINDINGS: INTRACRANIAL CONTENTS: No intracranial hemorrhage, extraaxial collection, or mass effect. No CT evidence of acute infarct. Normal parenchymal attenuation. Normal ventricles and sulci. VISUALIZED ORBITS/SINUSES/MASTOIDS: No intraorbital abnormality. No paranasal sinus mucosal disease. No middle ear or mastoid effusion. BONES/SOFT TISSUES: No scalp hematoma. No skull fracture. Impression IMPRESSION: 1. Normal head CT. Chest XR, PA & LAT Narrative EXAM: XR CHEST 2 VIEWS LOCATION: [facility] DATE: 02/22/2024 INDICATION: rigors, recent surgery, ? PNA COMPARISON: 04/08/2023 Impression IMPRESSION: Negative chest. COVID Status: COVID-19 PCR Results No data to display COVID-19 Antibody Results, Testing for Immunity No data to display Disclaimer: This note consists of symbols derived from keyboarding, dictation and/or voice recognition software. As a result, there may be errors in the script that have gone undetected. Please consider this when interpreting information found in this chart. * La Castaneda PA-C - 02/23/2024 12:14 AM CDT Pt spiked fever of 103, also c/o chills and fevers concerning for potential bacteremia. BAR improved, pain is better than previous. LA also elevated at 2.8 Plan for additional IV NS bolus, follow blood cx, expand abx to Zosyn for broader coverage. I did talk to ENT earlier on initial admission prior to fever. Would recommend contacting him tomorrow if needed [phone] Dr. 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 Pt states she underwent septoplasty and some work on her turbinate for chronic migraine and sinusitis. She received general anesthesia (first time) and discharged same day with PRN pain meds and keflex. She c/o quite a bit of plain last night and episodes of n/v and she also had an episode of syncope but came to after a min or so. No loss of urinary or bowel control. Today, she continued her pain meds, still felt off, had episodes of n/v and by 10am she started to have involuntary shakes that sounds like rigors. She continues to have episodic shakes with episodesof near to full syncope lasting several seconds. No tonic clonic like description. They called the light bulb tester to bring her to ED. Work up in the ED reveals low grade temp of 99.8, soft BPs in the 80-90's. HR 80's labs were largely unremarkable except for hypokalemia and hypomagnesemia procalcitonin was slightly elevated at 0.69but had normal white count and mild anemia 11.3. Blood culture x 2 obtained, EKG shows sinus rhythmwith incomplete right bundle branch block. CT of the head was negative and chest x-ray was also negative. She was given IVF and dose of abx (as she was unable to tolerate PO keflex) and recommend admission overnight. #Post op nausea/vomiting #Episodic body shakes with associated episodes of near syncope/syncope Her sxs after surgery seems multifactorial, possibly due to post op pain, narcotics, anesthesia or just heightened vagal tone leading to vasovagal syncope. I did speak with her ENT Dr. Pete who states rare occasion nasal packing can cause vasovagal sxs but this is rare. More commonly if ppl have issues after surgery it would be aspiration PNA which she does not appear to have. - Low suspicion for seizure, infection or cardiac causes - Plan to treat supportively with IVF hydration - Replace electrolytes - Pain control with oxycodone - Anti-emetics PRN (zofran does not work) - Monitor on tele for arrhthymias but low suspicion as the culprit #Post op septoplasty for deviated septum 02/20 - Cont to keep packing in place per ENT request but if pt is very uncomfortable or if she continuesto have syncopal episodes, can call ENT and he can consider meeting pt in clinic tomorrow for packing removal - On keflex per ENT, currently expanded to Rocephin for now but will need to cont and finish all ofkeflex at discharge - Cont PRN oxycodone for pain #Hx of symptomatic PVCs - No recent episodes of symptomatic PVCs in the last 24 hrs - Monitor on tele overnight - On Atenolol, which we will cont but with hold parameters at HR< 65 #Acute on chronic neck and back pain - C/o neck and shoulder spasms, likely contributed by n/v - Resume [employer] Flexeril #Hypomagnesemia # Hypokalemia: Lowest K = 2.9 mmol/L in last 2 days, will replace as needed - Due to n/v - Replace via electrolyte protocol # Hypocalcemia: Lowest Ca = 8.2 mg/dL in last 2 days, will monitor and replace as appropriate # Thrombocytopenia: Lowest platelets = 117 in last 2 days, will monitor for bleeding # Overweight: Estimated body mass index is 27.62 kg/m?? as calculated from the following: Height as of this encounter: 1.651 m (5' 5). Weight as of this encounter: 75.3 kg (166 lb). # Asthma: noted on problem list - stable Awaiting formal pharmacy reconciliation to resume home medications. DVT Prophylaxis: Low Risk/Ambulatory with no VTE prophylaxis indicated Code Status: Full Code Family updated with plan of care: at bedside Expected Discharge Date: 02/23/2024 La Castaneda PA-C Primary Care Physician [facility] Chief Complaint N/v and syncope History is obtained from the patient Discussed with Dr. Rodriguez in the ED, full chart review including lab work, imaging, and vital signswere reviewed. 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 Pt states she underwent septoplasty and some work on her turbinate for chronic migraine and sinusitis. She received general anesthesia (first time) and discharged same day with PRN pain meds and keflex. She c/o quite a bit of plain last night and episodes of n/v and she also had an episode of syncope but came to after a min or so. No loss of urinary or bowel control. Today, she continued her pain meds, still felt off, had episodes of n/v and by 10am she started to have involuntary shakes that sounds like rigors. She continues to have episodic shakes with episodesof near to full syncope lasting several seconds. No tonic clonic like description. They called the light bulb tester to bring her to ED. Work up in the ED reveals low grade temp of 99.8, soft BPs in the 80-90's. HR 80's labs were largely unremarkable except for hypokalemia and hypomagnesemia procalcitonin was slightly elevated at 0.69but had normal white count and mild anemia 11.3. Blood culture x 2 obtained, EKG shows sinus rhythmwith incomplete right bundle branch block. CT of the head was negative and chest x-ray was also negative. She was given IVF and dose of abx (as she was unable to tolerate PO keflex) and recommend admission overnight. Past Medical History I have reviewed this patient's medical history and updated it with pertinent information if needed. Past Medical History: Diagnosis Date ACNE NEC ASTHMA - MILD INTERMITTENT Past Surgical History I have reviewed this patient's surgical history and updated it with pertinent information if needed. Past Surgical History: Procedure Laterality Date NO HISTORY OF SURGERY Prior to Admission Medications Prior to Admission Medications Prescriptions Last Dose Informant Patient Reported? Taking? Artificial Tear Ointment (LACRI-LUBE S.O.P. OP) Past Week at - Yes Yes Sig: Place 1 drop into both eyes at bedtime Fexofenadine HCl (SHEELA PO) Past Week at - Yes Yes Sig: Take 1 tablet by mouth daily albuterol (PROAIR HFA/PROVENTIL HFA/VENTOLIN HFA) 108 (90 Base) MCG/ACT inhaler 02/21/2024 at am YesYes Sig: Inhale 2 puffs into the lungs every 6 hours as needed for shortness of breath, wheezing or cough atenolol (TENORMIN) 25 MG tablet 02/21/2024 at am Yes Yes Sig: Take 25 mg by mouth as needed cyclobenzaprine (FLEXERIL) 10 MG tablet PRN at PRN Yes Yes Sig: Take 10 mg by mouth 3 times daily as needed for muscle spasms flecainide (TAMBOCOR) 50 MG tablet NOT STARTED at NOT STARTED Yes Yes Sig: Take 50 mg by mouth 2 times daily fluticasone-salmeterol (ADVAIR) 250-50 MCG/ACT inhaler Past Week Yes Yes Sig: Inhale 1 puff into the lungs every 12 hours ibuprofen (ADVIL/MOTRIN) 200 MG tablet 02/21/2024 at pm Yes Yes Sig: Take 600 mg by mouth every 6 hours as needed for pain magnesium oxide 200 MG TABS 02/21/2024 at - Yes Yes Sig: Take 600 mg by mouth at bedtime oxyCODONE (OXY-IR) 5 MG capsule 02/22/2024 at am Yes Yes Sig: Take 5 mg by mouth every 6 hours as needed for severe pain tiZANidine (ZANAFLEX) 4 MG tablet Past Month at - Yes Yes Sig: Take 4 mg by mouth 2 times daily as needed for muscle spasms traMADol (ULTRAM) 50 MG tablet NOT STARTED at NOT STARTED Yes Yes Sig: Take 50 mg by mouth 3 times daily as needed for severe pain Facility-Administered Medications: None Allergies Allergies Allergen Reactions Acetaminophen Acetaminophen Headache Other Environmental Allergy Nickel Latex Rash Social History I have reviewed this patient's social history and updated it with pertinent information if needed. Tenzin Fortune reports that she quit smoking about 17 years ago. She does not have any smokeless tobacco history on file. She reports current alcohol use. Family History I have reviewed this patient's family history and updated it with pertinent information if needed. Review of Systems The 10 point Review of Systems is negative other than noted in the HPI or here. Physical Exam Temp: 99 ??F (37.2 ??C) Temp src: Oral BP: 97/59 Pulse: 84 Resp: 16 SpO2: 99 % O2 Device: None (Room air) Vital Signs with Ranges Temp: [99 ??F (37.2 ??C)-99.8 ??F (37.7 ??C)] 99 ??F (37.2 ??C) Pulse: [70-104] 84 Resp: [16-17] 16 BP: (87-123)/(51-74) 97/59 SpO2: [94 %-100 %] 99 % 166 lbs 0 oz Constitutional: Awake, alert, no apparent distress. Eyes: Conjunctiva and pupils examined and normal. HEENT: Moist mucous membranes, normal dentition. Nasal packing in place Respiratory: Clear to auscultation bilaterally, no crackles or wheezing. Cardiovascular: Regular rate and rhythm, normal S1 and S2, and no murmur noted. GI: Soft, non-distended, non-tender, bowel sounds present. No rebound tenderness or guarding. Lymph/Hematologic: No anterior cervical or supraclavicular adenopathy. Skin: No rashes, no cyanosis, no edema. Musculoskeletal: No deformities noted. No erythema or tenderness. Moving all extremities. Neurologic: No focal deficits noted. Speech is clear. Coordination and strength grossly normal. Psychiatric: Appropriate affect. Data Data reviewed today: EKG: Sinus Imaging: Recent Results (from the past 24 hour(s)) Head CT w/o contrast Narrative EXAM: CT HEAD W/O CONTRAST LOCATION: [facility] DATE: 02/22/2024 INDICATION: recent rhinoplasty, ? Seizure COMPARISON: MRI brain 01/24/2006 TECHNIQUE: Routine CT Head without IV contrast. Multiplanar reformats. Dose reduction techniques were used. FINDINGS: INTRACRANIAL CONTENTS: No intracranial hemorrhage, extraaxial collection, or mass effect. No CT evidence of acute infarct. Normal parenchymal attenuation. Normal ventricles and sulci. VISUALIZED ORBITS/SINUSES/MASTOIDS: No intraorbital abnormality. No paranasal sinus mucosal disease. No middle ear or mastoid effusion. BONES/SOFT TISSUES: No scalp hematoma. No skull fracture. Impression IMPRESSION: 1. Normal head CT. Chest XR, PA & LAT Narrative EXAM: XR CHEST 2 VIEWS LOCATION: [facility] DATE: 02/22/2024 INDICATION: rigors, recent surgery, ? PNA COMPARISON: 04/08/2023 Impression IMPRESSION: Negative chest. Recent Labs Lab 02/22/24 1351 WBC 5.1 HGB 11.3* MCV 90 PLT 117* NA 140 POTASSIUM 2.9* CHLORIDE 107 CO2 20* BUN 10.4 CR 0.76 ANIONGAP 13 MERISSA 8.2* GLC 107* ALBUMIN 3.8 PROTTOTAL 5.5* BILITOTAL 1.2 ALKPHOS 67 ALT 18 AST 36 La Castaneda PA-C [facility] Medicine February 22, 2024 Securely message with the [employer] Console (learn more here) Text page via [facility] Paging/Directory Associated attestation - Socrates Bay MD - 02/23/2024 7:09 AM CDT Physician Attestation I have reviewed and discussed with the advanced practice provider their history, physical and plan for Tenzin Fortune. I did not participate in a shared visit; this is an advanced practice provider only visit. Socrates Bay MD Date of Service (when I saw the patient): I did not personally see this patient today. documented in this encounter Consult Notes * Alejandro Bergman MD - 02/25/2024 2:03 PM CDT ENT Consultation Tenzin Fortune Date of : 1980 Age: [id number] year old Date of Admission: 02/22/2024 Assessment and Plan: S/p septoplasty, with bacteremia. Packs and stents were removed and she will start on saline spray.She appears to be doing well. F/u with operating ENT surgeon after discharge. History of Present Illness: Tenzin Fortune is a 43 year old female had a septoplasty with Dr. Mccall 4 days ago and had somepost op nausea and vasovagal episodes. She has a hx of pf PVCs and had somje shakes. In the ED was noted to hypokalemic and hypomag. EKG abnormal and blood cxs were done that shows Klebsiella sp. She's been on IVF and Levaquin. She has total nasal obstruction from her packing. Past Medical History: Past Medical History: Diagnosis Date ACNE NEC ASTHMA - MILD INTERMITTENT Past Surgical History: Past Surgical History: Procedure Laterality Date NO HISTORY OF SURGERY Social History: Social History Tobacco Use Smoking status: Former Current packs/day: 0.00 Types: Cigarettes Quit date: 01/24/2007 Years since quittin.0 Smokeless tobacco: Not on file Substance Use Topics Alcohol use: Yes Comment: occasional Family History: No family history on file. Allergies: Allergies Allergen Reactions Acetaminophen Acetaminophen Headache Migraines, Nausea Other Environmental Allergy Nickel Latex Rash Medications: Current Facility-Administered Medications Medication Dose Route Frequency Provider Last Rate Last Admin atenolol (TENORMIN) tablet 25 mg 25 mg Oral Daily La Castaneda PA-C famotidine (PEPCID) tablet 10 mg 10 mg Oral Daily Berkley Pichardo APRN CNP 10 mg at 02/25/24 0830 fluticasone-vilanterol (BREO ELLIPTA) 100-25 MCG/ACT inhaler 1 puff 1 puff Inhalation BID Tonja Manriquez PA-C 1 puff at 02/25/24 0830 ibuprofen (ADVIL/MOTRIN) tablet 800 mg 800 mg Oral Q6H Berkley Pichardo APRN CNP 800 mg at02/25/24 0830 levofloxacin (LEVAQUIN) tablet 500 mg 500 mg Oral Daily Paulina Franco MD lidocaine (XYLOCAINE) 5 % ointment Topical 4x Daily Janki Bliss APRN CNP metoclopramide (REGLAN) injection 10 mg 10 mg Intravenous Q6H CastanedaLa sanchez PA-C 10 mg at 02/25/24 0830 polyethylene glycol (MIRALAX) Packet 17 g 17 g Oral Daily Berkley Pichardo APRN CNP 17 g at 02/24/24 1126 scopolamine (TRANSDERM) 72 hr patch 1 patch 1 patch Transdermal Q72H La Castaneda PA-C 1 patch at 02/22/24 210 And scopolamine (TRANSDERM-SCOP) Patch in Place Transdermal Q8H La Castaneda PA-C senna-docusate (SENOKOT-S/PERICOLACE) 8.6-50 MG per tablet 2 tablet 2 tablet Oral BID Berkley Pichardo APRN CNP 2 tablet at 05/20/24 1905 Review of Systems: A comprehensive greater than 10 system review of systems was carried out. Pertinent positives and negatives are noted above. Otherwise negative for contributory info. Physical Exam: Blood pressure 117/72, pulse 54, temperature 97.8 ??F (36.6 ??C), temperature source Axillary, resp. rate 20, height 1.651 m (5' 5), weight 75.3 kg (166 lb), SpO2 96%, not currently . General: She has a nasal voice, doesn't look acutely ill. Ear: Each auricle, external auditory canal, tympanic membrane, and middle ear looks normal. There is no canal debris, inflammation, cerumen, and no TM retraction or middle ear fluid. Nose: Bilateral sponge packs (2 on each side) removed. Bilateral silastic stents removed. Nasal suprastructure is intact, no mucosal hypertrophy or boggy edema, and there are no polyps, inflammation,or unusual drainage. Sinuses nontender and the overlying skin looks healthy. Septum midline, intact, with healthy mucosa. No pus. Oral: Lips, gingiva, floor of mouth, tongue, palate, oropharynx looks normal without mucosal inflammation, ulcers, or masses. Neck: No worrisome neck masses or lymph nodes. Good neck range of motion with soft salivary glands and no palpable thyromegaly or nodules. Data: CBC: Recent Labs Lab 02/25/24 0704 02/24/24 0550 02/23/24 0502/22/24 2232 WBC 2.9* 3.4* 7.1 6.4 RBC 3.69* 3.66* 3.42* 3.33* HGB 11.0* 10.9* 10.4* 10.0* HCT 32.2* 32.9* 30.7* 29.9* MCV 87 90 90 90 MCH 29.8 29.8 30.4 30.0 MCHC 34.2 33.1 33.9 33.4 RDW 12.0 12.2 12.6 12.4 PLT 95* 75* 83* 99* BMP: Recent Labs Lab 02/25/24 0704 02/24/24 0550 02/23/24 0528 02/22/24 1351 NA 142 140 137 140 POTASSIUM 3.4 3.7 3.5 2.9* CHLORIDE 109* 109* 110* 107 MERISSA 8.2* 7.7* 7.7* 8.2* CO2 23 20* 21* 20* BUN 10.3 7.7 7.4 10.4 CR 0.82 0.89 0.75 0.76 GLC 94 97 104* 107* INR: No lab results found in last 7 days. CULTURES: No results for input(s): CULT in the last 168 hours. Alejandro Bergman MD Page: * Berkley Pichardo, KAYLA PUMP REBUILDER - 02/24/2024 10:00 AM CDTAssociated Order(s): PAIN MANAGEMENT ADULT IP CONSULT [facility] ACUTE INPATIENT PAIN SERVICE [facility] PAIN Consult Assessment/Plan: Tenzin Fortune is a 43 year old female who was admitted on 02/22/2024. I was asked by Dr. Phu emmanuel the patient for pain after septoplasty. Admitted for shaking. History of asthma, PVCs, chronic back pain from arthritis. 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 Describes pain as 0/10 and well controlled. PLAN: Acute pain secondary to septoplasty for deviated septum, now postop day 4, in the setting of new diagnosis of sepsis. Multimodal Medication Therapy: Adjuvants: schedule ibuprofen - max dose of 3.2 g/day & would suggest a PPI, on Reglan and scopolamine Opioids: dilaudid 2mg Q3h PRN PO Discontinue IV dilaudid Non-medication interventions- Ice every hour to the face Constipation Prophylaxis- has had some constipation - no bm in 3 days, schedule senna and add miralax Follow up /Discharge Recommendations - We recommend prescribing the following at the time of discharge: likely po dilaudid Subjective: Pt notes ablation with [facility]. Notes pain is better. Ears feel full. Headache as well. Painnow down to 4/10. Afternoons are worse. Headache: no aura, Frontal and radiates up and around ear. Neck and back hurt. Pt and feel that oxycodone is making headaches worse. notes that fever spikes and pt starts shaking. Nausea improved with reglan and scop patch. Discussed with RN. Who notes some anxiety. Tele-Visit Details Type of service: Video Visit Time Service Began (time 1st connected with pt): 934 Time Service Ended (time completely finished with pt): 1035 Video Start Time (time video started): 0940 Video End Time (time video stopped): 1012 Originating Location (pt. Location): Patient Hospital Room Distant Location (provider location): [place] Reason for Televisit: Pain Consult Mode of Communication: Video Conference via [employer] Physician has received verbal consent for a video visit from the patient? Yes Berkley Pichardo APRN CNP History Drug Use Not on file Tobacco Use Smoking status: Former Packs/day: 0.00 Types: Cigarettes Quit date: 01/24/2007 Years since quittin.0 Smokeless tobacco: None Objective: Vital signs in last 24 hours: B/P: 130/79, T: 98.3, P: 60, R: 18 Blood pressure 130/79, pulse 60, temperature 98.3 ??F (36.8 ??C), temperature source Oral, resp. rate 18, height 1.651 m (5' 5), weight 75.3 kg (166 lb), SpO2 92%, not currently . Review of Systems: As per subjective, all others negative. Physical Exam Vital Signs: Temp: 98.5 ??F (36.9 ??C) Temp src: Oral BP: 102/69 Pulse: 65 Resp: 18 SpO2: 100 % O2 Device: None (Room air) Oxygen Delivery: 2 LPM Weight: 187 lbs 14.4 oz On video appears alert and talkative Imaging: Personally Reviewed. Results for orders placed or performed during the hospital encounter of 02/22/24 Chest XR, PA & LAT Impression IMPRESSION: Negative chest. Head CT w/o contrast Impression IMPRESSION: 1. Normal head CT. Lab Results: Personally Reviewed. Last Comprehensive Metabolic Panel: Sodium Date Value Ref Range Status 02/24/2024 140 135 - 145 mmol/L Final Comment: Reference intervals for this test were updated on 07/02/2023 to more accurately reflect our healthypopulation. There may be differences in the flagging of prior results with similar values performedwith this method. Interpretation of those prior results can be made in the context of the updated reference intervals. 03/29/2021 136 133 - 144 mmol/L Final Potassium Date Value Ref Range Status 02/24/2024 3.7 3.4 - 5.3 mmol/L Final 03/29/2021 4.1 3.4 - 5.3 mmol/L Final Chloride Date Value Ref Range Status 02/24/2024 109 (H) 98 - 107 mmol/L Final 03/29/2021 107 94 - 109 mmol/L Final Carbon Dioxide Date Value Ref Range Status 03/29/2021 22 20 - 32 mmol/L Final Carbon Dioxide (CO2) Date Value Ref Range Status 02/24/2024 20 (L) 22 - 29 mmol/L Final Anion Gap Date Value Ref Range Status 02/24/2024 11 7 - 15 mmol/L Final 03/29/2021 7 3 - 14 mmol/L Final Glucose Date Value Ref Range Status 02/24/2024 97 70 - 99 mg/dL Final 03/29/2021 92 70 - 99 mg/dL Final Urea Nitrogen Date Value Ref Range Status 02/24/2024 7.7 6.0 - 20.0 mg/dL Final 03/29/2021 13 7 - 30 mg/dL Final Creatinine Date Value Ref Range Status 02/24/2024 0.89 0.51 - 0.95 mg/dL Final 03/29/2021 0.80 0.52 - 1.04 mg/dL Final GFR Estimate Date Value Ref Range Status 02/24/2024 82 >60 mL/min/1.73m2 Final 03/29/2021 >90 >60 mL/min/[1.73_m2] Final Comment: Non GFR Calc Starting 09/23/2018, serum creatinine based estimated GFR (eGFR) will be calculated using the Chronic Kidney Disease Epidemiology Collaboration (CKD-EPI) equation. Calcium Date Value Ref Range Status 02/24/2024 7.7 (L) 8.6 - 10.0 mg/dL Final 03/29/2021 9.6 8.5 - 10.1 mg/dL Final UA: No results found for: UAMP, UBARB, BENZODIAZEUR, UCANN, UCOC, OPIT, UPCP BILLING ON TIME 60 MINUTES SPENT BY ME on the date of service doing chart review, history, exam, documentation & further activities per the note. Berkley Pichardo APRN, TIMBER DEADENER-BC, PUMP REBUILDER Acute Care Pain Management Program Hours of pain coverage Mon-Fri 8-1600, afterhours please call the household appliances salesperson [facility] ([place], [place], [place], [place]) Page via [employer] console -Click for [employer] * Phill Francis MD - 02/23/2024 11:02 AM CDTAssociated Order(s): INFECTIOUS DISEASES IP CONSULT [facility] Infectious Disease Consultation Date of Admission: 02/22/2024 Date of Consult (When I saw the patient): 02/23/24 Assessment & Plan Tenzin Fortune is a 43 year old who was admitted on 02/22/2024. Impression: 43 yo with symptomatic PVCs maintained on PRN atenolol, well-controlled asthma Presents with several episodes of nausea, vomiting and syncopal episodes in the setting of recent septoplasty a day before presentation at [facility]. Pt states she underwent septoplasty and some work on her turbinate for chronic migraine and sinusitis. She received general anesthesia (first time) and discharged same day with PRN pain meds and keflex. She c/o quite a bit of plain last night and episodes of n/v and she also had an episode of syncope but came to after a min or so. Then started to chills UA grossly abnormal UC pending BC with GNR: k[place]ak On zosyn Recommendations: Continue on Zosyn Follow-up on full culture identification and susceptibilities in the blood Follow-up on the urine culture Source urine versus postop consult with ENT Discussed with YEIMY Francis MD Reason for Consult Reason for consult: I was asked to evaluate this patient for shaking chills. Primary Care Physician [facility] Chief Complaint Shaking chills History is obtained from the patient and medical records History of Present Illness Tenzin Fortune is a 43 year old female who presents with shaking chills nausea and vomiting after sinus/nasal surgery Past Medical History I have reviewed this patient's medical history and updated it with pertinent information if needed. Past Medical History: Diagnosis Date ACNE NEC ASTHMA - MILD INTERMITTENT Past Surgical History I have reviewed this patient's surgical history and updated it with pertinent information if needed. Past Surgical History: Procedure Laterality Date NO HISTORY OF SURGERY Prior to Admission Medications Prior to Admission Medications Prescriptions Last Dose Informant Patient Reported? Taking? Artificial Tear Ointment (LACRI-LUBE S.O.P. OP) Past Week at - Yes Yes Sig: Place 1 drop into both eyes at bedtime Fexofenadine HCl (SHEELA PO) Past Week at - Yes Yes Sig: Take 1 tablet by mouth daily albuterol (PROAIR HFA/PROVENTIL HFA/VENTOLIN HFA) 108 (90 Base) MCG/ACT inhaler 02/21/2024 at am YesYes Sig: Inhale 2 puffs into the lungs every 6 hours as needed for shortness of breath, wheezing or cough atenolol (TENORMIN) 25 MG tablet 02/21/2024 at am Yes Yes Sig: Take 25 mg by mouth as needed cyclobenzaprine (FLEXERIL) 10 MG tablet PRN at PRN Yes Yes Sig: Take 10 mg by mouth 3 times daily as needed for muscle spasms flecainide (TAMBOCOR) 50 MG tablet NOT STARTED at NOT STARTED Yes Yes Sig: Take 50 mg by mouth 2 times daily fluticasone-salmeterol (ADVAIR) 250-50 MCG/ACT inhaler Past Week Yes Yes Sig: Inhale 1 puff into the lungs every 12 hours ibuprofen (ADVIL/MOTRIN) 200 MG tablet 02/21/2024 at pm Yes Yes Sig: Take 600 mg by mouth every 6 hours as needed for pain magnesium oxide 200 MG TABS 02/21/2024 at - Yes Yes Sig: Take 600 mg by mouth at bedtime oxyCODONE (OXY-IR) 5 MG capsule 02/22/2024 at am Yes Yes Sig: Take 5 mg by mouth every 6 hours as needed for severe pain tiZANidine (ZANAFLEX) 4 MG tablet Past Month at - Yes Yes Sig: Take 4 mg by mouth 2 times daily as needed for muscle spasms traMADol (ULTRAM) 50 MG tablet NOT STARTED at NOT STARTED Yes Yes Sig: Take 50 mg by mouth 3 times daily as needed for severe pain Facility-Administered Medications: None Allergies Allergies Allergen Reactions Acetaminophen Acetaminophen Headache Other Environmental Allergy Nickel Latex Rash Immunization History Immunization History Administered Date(s) Administered COVID-19 12+ (2022-) (Pfizer) 11/03/2023 COVID-19 MONOVALENT 12+ (Pfizer) 09/19/2021, 10/10/2021 Influenza (IIV3) PF 10/01/2006 Social History I have reviewed this patient's social history and updated it with pertinent information if needed. Tenzin Fortune reports that she quit smoking about 17 years ago. She does not have any smokeless tobacco history on file. She reports current alcohol use. Family History I have reviewed this patient's family history and updated it with pertinent information if needed. No family history on file. Review of Systems The 10 point Review of Systems is negative Physical Exam Temp: 98.2 ??F (36.8 ??C) Temp src: Axillary BP: 101/42 Pulse: 54 Resp: 16 SpO2: 95 % O2 Device: None (Room air) Vital Signs with Ranges Temp: [98.2 ??F (36.8 ??C)-103.1 ??F (39.5 ??C)] 98.2 ??F (36.8 ??C) Pulse: [54-122] 54 Resp: [16-22] 16 BP: (87-127)/(42-74) 101/42 SpO2: [92 %-100 %] 95 % 166 lbs 0 oz Body mass index is 27.62 kg/m??. GENERAL APPEARANCE: awake pack ing in place EYES: Eyes grossly normal to inspection NECK: no adenopathy RESP: lungs clear CV: regular rates and rhythm LYMPHATICS: normal ant/post cervical and supraclavicular nodes ABDOMEN: soft, nontender MS: extremities normal SKIN: no suspicious lesions or rashes Data All laboratory and imaging data in the past 24 hours reviewed No results for input(s): CULT in the last 168 hours. No lab results found. Invalid input(s): UC All cultures: Recent Labs Lab 02/22/24 1357 02/22/24 1351 CULTURE Positive on the 1st day of incubation* Gram negative bacilli* No growth after 12 hours Blood culture: Results for orders placed or performed during the hospital encounter of 02/22/24 Blood Culture Arm, Right Specimen: Arm, Right; Blood Result Value Ref Range Culture Positive on the 1st day of incubation (A) Culture Gram negative bacilli (AA) Blood Culture Arm, Left Specimen: Arm, Left; Blood Result Value Ref Range Culture No growth after 12 hours Urine culture: No results found for this or any previous visit. documented in this encounter ED Notes * Nata Syed RN - 02/22/2024 4:15 PM CDT states that pt had another episode of shaking and blacking out. Per HR dropped intothe 40's on the monitor, BP was low when RN entered the room. Pt was placed on tele. Will continue with current plan of care. * Mimi Cardona RN - 02/22/2024 2:05 PM CDT [facility] ED Nurse Handoff Report ED Chief complaint: Syncope . ED Diagnosis: Final diagnoses: None Allergies: Allergies Allergen Reactions Acetaminophen Acetaminophen Headache Other Environmental Allergy Nickel Latex Rash Code Status: Full Code Activity level - Baseline/Home: independent. Activity Level - Current: assist of 1. Lift room needed: No. Bariatric: No Filling Separator Needed: No Isolation: No. Infection: Not Applicable. Respiratory status: Room air Vital Signs (within 30 minutes): Vitals: 02/22/24 1232 BP: 123/74 Pulse: 104 Resp: 17 Temp: 99.8 ??F (37.7 ??C) TempSrc: Oral SpO2: 100% Weight: 75.3 kg (166 lb) Height: 1.651 m (5' 5) Cardiac Rhythm: , Pain level: Patient confused: No. Patient Falls Risk: nonskid shoes/slippers when out of bed, patient and family education, and activity supervised. Elimination Status: has not voided in the ED Patient Report - Initial Complaint: dizziness, n/v. Focused Assessment: pt had sinus surgery yesterday. Per she has had several syncapol episodes last night and this morning. Pt states she does not remember these episodes. Read the triage notefor more. Pt is alert and oriented, VSS, has received pain meds, nausea meds and fluids as of the writing of this note. Abnormal Results: Labs Ordered and Resulted from Time of ED Arrival to Time of ED Departure - No data to display Chest XR, PA & LAT (Results Pending) Head CT w/o contrast (Results Pending) Treatments provided: labs, imaging Family Comments: at the bedside and supportive in cares OBS brochure/video discussed/provided to patient: No ED Medications: Medications sodium chloride 0.9% BOLUS 1,000 mL (1,000 mLs Intravenous $New Bag 02/22/24 1351) HYDROmorphone (PF) (DILAUDID) injection 0.5 mg (0.5 mg Intravenous $Given 02/22/24 1351) ondansetron (ZOFRAN) injection 4 mg (4 mg Intravenous $Given 02/22/24 1351) Drips infusing: No For the majority of the shift this patient was Green. Interventions performed were n/a. Sepsis treatment initiated: No Cares/treatment/interventions/medications to be completed following ED care: see hospitalist notes ED Nurse Name: Nata Syed RN 2:05 PM RECEIVING UNIT ED HANDOFF REVIEW Above ED Nurse Handoff Report was reviewed: Yes Reviewed by: Mimi Cardona RN on February 22, 2024 at 5:23 PM Moises Armas called the ED to inform them the note was read: Yes * Nata Syed RN - 02/22/2024 12:25 PM CDT Pt BIBA after 3 syncapol episodes. Pt states that she had nasal surgery yesterday. Pt states that she has pain in her head, neck and ears. states that the pt blacked out last night and had some vomiting. states that this morning she had an episode where she had multiple black outs with shaking in between. He states that she came to and was able to communicate at times and at other times she would shake and then become limp. Triage Assessment (Adult) Row Name 02/22/24 1225 Triage Assessment Airway WDL WDL Respiratory WDL Respiratory WDL WDL Skin Circulation/Temperature WDL Skin Circulation/Temperature WDL WDL Cardiac WDL Cardiac WDL WDL * Yasmeen Lang RN - 02/22/2024 12:20 PM CDT Bed: ED11 Expected date: Expected time: Means of arrival: Comments: [id number] * Fam Rodriguez MD - 02/22/2024 12:20 PM CDT Emergency Department Note History of Present Illness Chief Complaint Syncope HPI Tenzin Fortune is a 43 year old female with a history of asthma, s/p 2 days from a septoplasty, whopresents to the emergency department today for evaluation after syncope. She presents with her and mother. She is about 2 days status post septoplasty. Her states that she has been taking pain medication, but not able to keep the meds down. She first took meds at 0730 this morning, and at 0830, he reports that she took some cephalexin. At about 1030 or 1100, he reports that she started to shake uncontrollably and, per the patient, violently. He also states that no matter how many blankets he gave her she could not get warm. The then states that after this episode, she jolted upright and said help. After which, her eyes rolled back, and she went stiff. He states that it took about 20 seconds or so for her to come to, and the patient states that she does not remember any of this occurring. Her then stated that she snapped back to reality. He also stated that she would have cycles of shaking uncontrollably and then going limp every 30 seconds to a minute or so. He states that she has been pretty lethargic, and he also noticed her hyperventilating. He also reports that she would complain of neck pain when coming to after periods of syncope, and this is a new type of pain. Tenzin's denies her having any fever, which he stated they were checking constantly during this whole period. She has only urinated twice since her surgery yesterday,and the denies any hematuria. Also denies any alcohol. She does have a history of arrhythmias. 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 Review of External Notes None Past Medical History Medical History and Problem List Asthma Medications Oxycodone Cetirizine Fluticasone-salmeterol Albuterol Atenolol Flecainide Aspirin Surgical History Denies any past surgical history. Physical Exam Patient Vitals for the past 24 hrs: BP Temp Temp src Pulse Resp SpO2 Height Weight 02/22/24 1630 95/56 -- -- 70 -- 99 % -- -- 02/22/24 1615 (!) 87/54 -- -- 72 -- 100 % -- -- 02/22/24 1605 97/63 -- -- 71 -- 100 % -- -- 02/22/24 1555 (!) 87/51 -- -- -- -- 100 % -- -- 02/22/24 1400 108/64 -- -- 90 -- 94 % -- -- 02/22/24 1232 123/74 99.8 ??F (37.7 ??C) Oral 104 17 100 % 1.651 m (5' 5) 75.3 kg (166 lb) Physical Exam Constitutional: Alert, attentive, GCS 15 HENT: Nose: Nasal packing bandages in place Mouth/Throat: Oropharynx is clear, mucous membranes are dry Eyes: EOM are normal, anicteric, conjugate gaze CV: regular rate and rhythm Chest: Effort normal and breath sounds clear without wheezing or rales, symmetric bilaterally GI: non tender. No distension. No guarding or rebound. MSK: No LE edema, no tenderness to palpation of BLE. Neurological: Alert, attentive, moving all extremities equally. Skin: Skin is warm and dry. Diagnostics Lab Results Labs Ordered and Resulted from Time of ED Arrival to Time of ED Departure COMPREHENSIVE METABOLIC PANEL - Abnormal Result Value Sodium 140 Potassium 2.9 (*) Carbon Dioxide (CO2) 20 (*) Anion Gap 13 Urea Nitrogen 10.4 Creatinine 0.76 GFR Estimate >90 Calcium 8.2 (*) Chloride 107 Glucose 107 (*) Alkaline Phosphatase 67 AST 36 ALT 18 Protein Total 5.5 (*) Albumin 3.8 Bilirubin Total 1.2 PROCALCITONIN - Abnormal Procalcitonin 0.69 (*) CBC WITH PLATELETS AND DIFFERENTIAL - Abnormal WBC Count 5.1 RBC Count 3.70 (*) Hemoglobin 11.3 (*) Hematocrit 33.4 (*) MCV 90 MCH 30.5 MCHC 33.8 RDW 12.2 Platelet Count 117 (*) % Neutrophils 94 % Lymphocytes 6 % Monocytes 0 % Eosinophils 0 % Basophils 0 % Immature Granulocytes 0 NRBCs per 100 WBC 0 Absolute Neutrophils 4.7 Absolute Lymphocytes 0.3 (*) Absolute Monocytes 0.0 Absolute Eosinophils 0.0 Absolute Basophils 0.0 Absolute Immature Granulocytes 0.0 Absolute NRBCs 0.0 ROUTINE UA WITH MICROSCOPIC BLOOD CULTURE BLOOD CULTURE Imaging Chest XR, PA & LAT Final Result IMPRESSION: Negative chest. Head CT w/o contrast Final Result IMPRESSION: 1. Normal head CT. Results per radiology EKG ECG results from 02/22/24 EKG 12-lead, tracing only Value Systolic Blood Pressure Diastolic Blood Pressure Ventricular Rate 99 Atrial Rate 99 WV Interval 198 QRS Duration 92 QT 372 QTc 477 P [place] 12 R AXIS 46 T [place] -16 Interpretation ECG Sinus rhythm Incomplete right bundle branch block Cannot rule out Anterior infarct , age undetermined Abnormal ECG When compared with ECG of 24-JAN-2006 18:40, Significant changes have occurred Independent Interpretation I personally reviewed her chest x-ray, see no notes of pneumonia or pneumothorax, I personally readthe head CT, see no evidence intracranial hemorrhage. ED Course Medications Administered Medications HYDROmorphone (PF) (DILAUDID) injection 0.5 mg (0.5 mg Intravenous $Given 02/22/24 1351) potassium chloride 10 mEq in 100 mL sterile water infusion (10 mEq Intravenous $New Bag 02/22/24 1601) sodium chloride 0.9% BOLUS 1,000 mL (1,000 mLs Intravenous $New Bag 02/22/24 1629) cefTRIAXone (ROCEPHIN) 2 g vial to attach to NS 100 ml bag for ADULTS or NS 50 ml bag for PEDS (hasno administration in time range) sodium chloride 0.9% BOLUS 1,000 mL (0 mLs Intravenous Stopped 02/22/24 1530) ondansetron (ZOFRAN) injection 4 mg (4 mg Intravenous $Given 02/22/24 1351) metoclopramide (REGLAN) injection 10 mg (10 mg Intravenous $Given 02/22/24 1540) diphenhydrAMINE (BENADRYL) injection 25 mg (25 mg Intravenous $Given 02/22/24 1540) Procedures Procedures Discussion of Management La Castaneda, Hospitalist Service with Dr. Bay Social Determinants of Health adding to complexity of care None ED Course ED Course as of 02/22/24 1654 Sat February 22, 2024 1329 I obtained history and examined the patient as noted above. Medical Decision Making / Diagnosis ALEX Tenzin Fortune is a 43 year old female past medical history significant for recent septal/rhinoplasty 2 days ago [facility] presenting here for rigors as well as what sounds like recurrent syncope. She reports significant nausea, and had several episodes today where she went unresponsive and brief shaking after reporting worsening nausea. Here she had a similar episode was found kathy bradycardic and transiently hypotensive with high suspicion for high vagal tone. EKG shows no ischemic changes. Screening labs are notable for hypokalemia 2.9 consistent with her vomiting. I have lower suspicion for seizure given no clear postictal state at home and here in the emergency department. Her vomiting was refractory to Zofran, requiring Benadryl and Reglan. I did do a CT scan of herhead with some concern for potential seizure, this was unremarkable, I have lower suspicion for CNSinfection with only risk factor being recent surgery. She does endorse what sounds like rigors, blood cultures are pending, she was due to start postoperative antibiotics today, I will do ceftriaxone. We will plan for medicine admission for continued telemetry with recurrent syncope in the setting of nausea and recent septal/turbinoplasty Disposition The patient was admitted to the hospital. ICD-10 Codes: ICD-10-CM 1. Hypokalemia E87.6 2. Recurrent syncope R55 likely high vagal tone (bradycardic and hypotensive in ER) 3. History of nasal septoplasty Z98.890 Fam Rodriguez MD [employer] 4:58 PM 02/22/24 Scribe Disclosure: I, Vivi Ghotra and Matt Nava, am serving as a scribe at 2:37 PM on 02/22/2024 to document services personally performed by Fam Rodriguez MD based on my observations and the provider's statements to me. Fam Rodriguez MD 02/22/24 1658 documented in this encounter Miscellaneous Notes * Plan of Care - Daisy Olmos RN - 02/25/2024 2:10 PM CDT Patient's After Visit Summary was reviewed with patient and/or spouse. Patient verbalized understanding of After Visit Summary, recommended follow up and was given an opportunity to ask questions. Discharge medications sent home with patient/family: sent to [facility] in [place] Discharged with spouse Follow up with ENT within 1 week. Instructions provided on how to take PO antibiotic, Levaquin: given before patient discharged, instructed to take next dose tomorrow. Problem: Adult Inpatient Plan of Care Goal: Absence of Hospital-Acquired Illness or Injury Intervention: Identify and Manage Fall Risk Recent Flowsheet Documentation Taken 02/25/2024825 by Daisy Olmos RN Safety Promotion/Fall Prevention: assistive device/personal items within reach clutter free environment maintained mobility aid in reach nonskid shoes/slippers when out of bed room organization consistent safety round/check completed treat reversible contributory factors treat underlying cause Intervention: Prevent Skin Injury Recent Flowsheet Documentation Taken 02/25/2024825 by Daisy Olmos RN Body Position: position changed independently Intervention: Prevent Infection Recent Flowsheet Documentation Taken 02/25/2024825 by Daisy Olmos RN Infection Prevention: equipment surfaces disinfected hand hygiene promoted rest/sleep promoted single patient room provided Goal: Optimal Comfort and Wellbeing Intervention: Monitor Pain and Promote Comfort Recent Flowsheet Documentation Taken 02/25/2024825 by Daisy Olmos RN Pain Management Interventions: medication (see MAR) * Plan of Care - Zee Hills RN - 02/25/2024 6:17 AM CDT Goal Outcome Evaluation: Care from [id number] Inpatient Progress Note: For complete assessment see flow sheet documentation. BP 121/65 (BP Location: Right arm) Pulse 52 Temp 98.3 ??F (36.8 ??C) (Oral) Resp 17 Ht 1.651 m (5' 5) Wt 75.3 kg (166 lb) SpO2 93% BMI 27.62 kg/m?? Pt alert & oriented. Denies pain.VSS.SBA for mobility. On Tele running SB-40's most of the night. Tolerating ABX Zosyn. On Mag & K+ protocol. PIV saline locked.Ongoing plan of care. Zee Hills RN Plan of Care Reviewed With: patient, spouse Problem: Adult Inpatient Plan of Care Goal: Plan of Care Review Description: The Plan of Care Review/Shift note should be completed every shift. The Outcome Evaluation is a brief statement about your assessment that the patient is improving, declining, or no change. This information will be displayed automatically on your shift note. Outcome: Progressing Flowsheets (Taken 02/25/2024 0811) Plan of Care Reviewed With: patient spouse Overall Patient Progress: improving Goal: Patient-Specific Goal (Individualized) Description: You can add care plan individualizations to a care plan. Examples of Individualizationmight be: Parent requests to be called daily at 9am for status, I have a hard time hearing out of my right ear, or Do not touch me to wake me up as it startles me. Outcome: Progressing Goal: Absence of Hospital-Acquired Illness or Injury Outcome: Progressing Intervention: Identify and Manage Fall Risk Recent Flowsheet Documentation Taken 02/25/2024 011 by Zee Hills RN Safety Promotion/Fall Prevention: assistive device/personal items within reach clutter free environment maintained mobility aid in reach nonskid shoes/slippers when out of bed room organization consistent safety round/check completed treat reversible contributory factors treat underlying cause Taken 02/24/2024 2344 by Zee Hills RN Safety Promotion/Fall Prevention: assistive device/personal items within reach clutter free environment maintained mobility aid in reach nonskid shoes/slippers when out of bed room organization consistent safety round/check completed treat reversible contributory factors treat underlying cause Intervention: Prevent Skin Injury Recent Flowsheet Documentation Taken 02/25/2024 011 by Zee Hills RN Body Position: position changed independently Skin Protection: adhesive use limited Device Skin Pressure Protection: absorbent pad utilized/changed tubing/devices free from skin contact Taken 02/24/2024 2344 by Zee Hills RN Body Position: position changed independently Intervention: Prevent and Manage VTE (Venous Thromboembolism) Risk Recent Flowsheet Documentation Taken 02/25/2024 011 by Zee Hills RN VTE Prevention/Management: SCDs (sequential compression devices) on Intervention: Prevent Infection Recent Flowsheet Documentation Taken 02/25/2024 011 by Zee Hills RN Infection Prevention: cohorting utilized hand hygiene promoted rest/sleep promoted single patient room provided Taken 02/24/2024 2344 by Zee Hills RN Infection Prevention: hand hygiene promoted rest/sleep promoted Goal: Optimal Comfort and Wellbeing Outcome: Progressing Intervention: Monitor Pain and Promote Comfort Recent Flowsheet Documentation Taken 02/25/2024 011 by Zee Hills RN Pain Management Interventions: medication (see MAR) Taken 02/24/2024 2336 by Zee Hills RN Pain Management Interventions: medication (see MAR) Goal: Readiness for Transition of Care Outcome: Progressing Flowsheets (Taken 02/25/2024 0811) Concerns to be Addressed: discharge planning Intervention: Mutually Develop Transition Plan Recent Flowsheet Documentation Taken 02/25/2024 0811 by Zee Hlils RN Concerns to be Addressed: discharge planning Overall Patient Progress: improvingOverall Patient Progress: improving * Plan of Care - Lana Uribe RN - 02/24/2024 9:59 PM CDT INPATIENT NOTE: 1500 - 2300 PRIMARY PROBLEM: Syncope Vital Signs: Stable Orientation: A/O x 4 Neuro: Intact Pain status: Managed with scheduled Ibuprofen Resp: Lung sounds CTA, denies any SOB Cardiac: WDL, Tele: SR 70 GI: Bowel sounds active. Last BM 02/20 : Continent of bladder Skin: Intact, nasal packing LDA: Peripheral IV to RLA SL Pertinent Labs/Imaging: On mag/pot protocol, recheck tomorrow AM Diet: Regular Activity: SBA Alarms/Safety: All alarms on and audible Consults: Discharge Plan: Continue with Zosyn IV every 8 hours. Discharge Date: TBD Will continue to monitor and provide cares. Lana Uribe RN Problem: Adult Inpatient Plan of Care Goal: Plan of Care Review Description: The Plan of Care Review/Shift note should be completed every shift. The Outcome Evaluation is a brief statement about your assessment that the patient is improving, declining, or no change. This information will be displayed automatically on your shift note. Outcome: Progressing Goal: Patient-Specific Goal (Individualized) Description: You can add care plan individualizations to a care plan. Examples of Individualizationmight be: Parent requests to be called daily at 9am for status, I have a hard time hearing out of my right ear, or Do not touch me to wake me up as it startles me. Outcome: Progressing Goal: Absence of Hospital-Acquired Illness or Injury Outcome: Progressing Intervention: Identify and Manage Fall Risk Recent Flowsheet Documentation Taken 02/24/20241725 by Lana Uribe RN Safety Promotion/Fall Prevention: assistive device/personal items within reach clutter free environment maintained mobility aid in reach nonskid shoes/slippers when out of bed room organization consistent safety round/check completed treat reversible contributory factors treat underlying cause Intervention: Prevent Skin Injury Recent Flowsheet Documentation Taken 02/24/2024 172 by Lana Uribe RN Body Position: position changed independently Skin Protection: adhesive use limited Device Skin Pressure Protection: absorbent pad utilized/changed tubing/devices free from skin contact Intervention: Prevent and Manage VTE (Venous Thromboembolism) Risk Recent Flowsheet Documentation Taken 02/24/2024 172 by Lana Uribe RN VTE Prevention/Management: SCDs (sequential compression devices) on Intervention: Prevent Infection Recent Flowsheet Documentation Taken 02/24/2024 1726 by Ombati, Lana G, RN Infection Prevention: cohorting utilized hand hygiene promoted rest/sleep promoted single patient room provided Goal: Optimal Comfort and Wellbeing Outcome: Progressing Goal: Readiness for Transition of Care Outcome: Progressing Problem: Infection Goal: Absence of Infection Signs and Symptoms Outcome: Progressing * Plan of Care - Maria Luisa Todd RN - 02/24/2024 2:12 PM CDT Goal Outcome Evaluation: Plan of Care Reviewed With: patient, spouse Overall Patient Progress: no changeOverall Patient Progress: no change Outcome Evaluation: Pt anxious, tearful at times. at bedside and supportive. She defers to him for answers to questions at times. Ibuprofen given for head neck back pain 7 with no relief. Wants to try flexeril in a little while. IV zosyn. VSS. Does c/o ears ringing this afternoon. Wants nasal pack out and requesting to leave hospital to go to ENT. Also awaiting ID plan. Pt and aware that she cannot leave hospital and come back but listened to feelings as is frustrating that cannott see ENT here and her ENT cannot come here as different health system. Feels puffy from IVF andlasix given per order. Up ind in room to bathroom. Fair appetite. Will monitor. Sinus chitra on monitor. Did take flexeril and ice pack this afternoon to neck. Problem: Adult Inpatient Plan of Care Goal: Plan of Care Review Description: The Plan of Care Review/Shift note should be completed every shift. The Outcome Evaluation is a brief statement about your assessment that the patient is improving, declining, or no change. This information will be displayed automatically on your shift note. Outcome: Progressing Flowsheets (Taken 02/24/2024 1407) Outcome Evaluation: Pt anxious, tearful at times. at bedside and supportive. She defers to him for answers to questions at times. Ibuprofen given for head neck back pain 7 with no relief. Wants to try flexeril in a little while. IV zosyn. VSS. Does c/o ears ringing this afternoon. Wants nasal pack out and requesting to leave hospital to go to ENT. Also awaiting ID plan. Pt and aware that she cannot leave hospital and come back but listened to feelings as is frustrating that cannott see ENT here and her ENT cannot come here as different health system. Feels puffy from IVF andlasix given per order. Up ind in room to bathroom. Fair appetite. Will monitor. Plan of Care Reviewed With: patient spouse Overall Patient Progress: no change Goal: Patient-Specific Goal (Individualized) Description: You can add care plan individualizations to a care plan. Examples of Individualizationmight be: Parent requests to be called daily at 9am for status, I have a hard time hearing out of my right ear, or Do not touch me to wake me up as it startles me. 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 BP 131/88 (BP Location: Left arm) Pulse 63 Temp 98 ??F (36.7 ??C) (Oral) Resp 18 Ht 1.651 m(5' 5) Wt 75.3 kg (166 lb) SpO2 92% BMI 27.62 kg/m?? Goal Outcome Evaluation: Plan of Care Reviewed With: patient, spouse Overall Patient Progress: improvingOverall Patient Progress: improving Outcome Evaluation: Pain goal is 3/10. IV Dilaudid and Toradol added to pain magement. Pt stated current pain is at 4/10. Blood culture grew Klebsiella, On IV abx Zosyn , C/O edema on hands, feet andabd distention, fluid rate decreased to 75ml/hr. POD #3 Septoplasty, nasal packing in place with dressing on. ENT consult for today. On K and Mag Replacement * Plan of Care - Natalie Wynne RN - 02/23/2024 6:44 PM CDT Vitals: BP 99/49 Pulse 78 TMAX 100.3 ??F (Axillary) Resp 18 SpO2 98% Headache/back pain managed with oxycodone, flexeril, ibuprofen. Patient had one episode of rigors/shaking with temp 100.3. Zosyn continued. IVF infusing. Poor appetite, patient reports discomfort while chewing, encouraged to order soft foods. Up with SBA. Nasal packing in place bilaterally; /patient changing outer gauze PRN. Tele SB/SR. ID following. UC pending. BC growing Klebsiella. Goal Outcome Evaluation: Plan of Care Reviewed With: patient, spouse, parent Overall Patient Progress: no change Outcome Evaluation: IV Zosyn continued. ID consulted, see recommendations. UC pending. Continues tohave low grade fevers and soft blood pressures. * Provider Notification - Natalie Wynne RN - 02/23/2024 4:00 PM CDT [facility] notified of patient rigors, neck pain, 'shaking episode' - patient appeared anxious and concerned antibiotics 'aren't working'. Ice pack applied to back of neck, blanket removed. Too early for ibuprofen, allergy to tylenol. Also reported episode of sharp pain in RLQ of abdomen. No change to POC at this time. 02/23/24 1527 Vital Signs Temp 99.2 ??F (37.3 ??C) Temp src Axillary Resp 18 Pulse 78 Pulse Rate Source Monitor BP 99/49 BP Location Left arm * Provider Notification - Natalie Wynne RN - 02/23/2024 10:[address] Bay at 10:15 AM regarding critical results read back. (R) arm blood culture verigene shows Klebsiella Oxytoca. Per Dr. Bay, OK to hold off on Vanco for now. * Pharmacy-Vancomycin Dosing Service - Autumn Sales, [facility] - 02/23/2024 9:55 AM CDT Pharmacy Vancomycin Initial Note Date of Service February 23, 2024 Patient's 1980 43 year old, female Indication: Sepsis Current estimated CrCl = Estimated Creatinine Clearance: 98.2 mL/min (based on SCr of 0.75 mg/dL). Creatinine for last 3 days 02/22/2024: 1:51 PM Creatinine 0.76 mg/dL 02/23/2024: 5:28 AM Creatinine 0.75 mg/dL Recent Vancomycin Level(s) for last 3 days No results found for requested labs within last 3 days. Vancomycin IV Administrations (past 72 hours) No vancomycin orders with administrations in past 72 hours. Nephrotoxins and other renal medications (From now, onward) Start Dose/Rate Route Frequency Ordered Stop 02/22/24 2300 piperacillin-tazobactam (ZOSYN) 3.375 g vial to attach to NS 100 mL bag Note to Pharmacy: For [facility], [facility] and [facility]: For Zosyn-naive patients, use the Zosyn initial dose + extended infusion order panel. 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 Regimen: 1250 mg IV every 12 hours. Start time: 23:00 on 02/23/2024 Exposure target: AUC24 (range)400-600 mg/L.hr AUC24,ss: 571 mg/L.hr Probability of AUC24 > 400: 83 % Ctrough,ss: 17.4 mg/L Probability of Ctrough,ss > 20: 39 % Probability of nephrotoxicity (Lodise MLELO 2008): 13 % Plan: Start vancomycin 1250 mg IV q12h after 2000 mg load. Vancomycin monitoring method: AUC Vancomycin therapeutic monitoring goal: 400-600 mg*h/L Pharmacy will check vancomycin levels as appropriate in 1-3 Days. Serum creatinine levels will be ordered a minimum of twice weekly. Autumn Sales RPH * Provider Notification - Natalie Wynne RN - 02/23/2024 9:39 AM CDT DATE/TIME OF CALL RECEIVED FROM LAB: 02/23/24 at 9:23 AM LAB TEST: Procalcitonin LAB VALUE: 6.93 PROVIDER NOTIFIED?: Yes PROVIDER NAME: Anupam DATE/TIME LAB VALUE REPORTED TO PROVIDER: 02/23/24 at 09:35 AM MECHANISM OF PROVIDER NOTIFICATION: [id number] PROVIDER RESPONSE: ID consulted and patient on antibiotics already. * Provider Notification - Natalie Wynne RN - 02/23/2024 8:10 AM CDT Notified by television analyzer that patient was sustaining HR 44-[address] Bay notified. Patient reports fatigue, no other cardiac symptoms. Atenolol held. * Provider Notification - Natalie Wynne RN - 02/23/2024 8:[address] Bay at 08:02 AM of following abnormal lab: Blood culture (right arm) Positive on the 1st day of incubation - Abnormal Gram negative bacilli 1 of 2 bottles Patient already on IV Abx. * Plan of Care - Monae Lacy RN - 02/23/2024 6:28 AM CDT Goal Outcome Evaluation: Plan of Care Reviewed With: patient Overall Patient Progress: improvingOverall Patient Progress: improving Outcome Evaluation: Pt is up with SBA. Pain controlled with Ibuprofen and Oxycodone as needed. Reported to have chronic migraines. Recent septoplasty and some work on her turbinate for chronic migraine and sinusitis. Packing in place in both nostrils, with serosanguinous drainage. Spouse at bedside, has been changing dressing q2-3hrs. Tele SR. NS infusing at 100ml/hr. Problem: Adult Inpatient Plan of Care Goal: Plan of Care Review Description: The Plan of Care Review/Shift note should be completed every shift. The Outcome Evaluation is a brief statement about your assessment that the patient is improving, declining, or no change. This information will be displayed automatically on your shift note. Outcome: Progressing Flowsheets (Taken 02/23/2024 0613) Outcome Evaluation: Pt is up with SBA. Pain controlled with Ibuprofen and Oxycodone as needed. Reported to have chronic migraines. Recent septoplasty and some work on her turbinate for chronic migraine and sinusitis. Packing in place in both nostrils, with serosanguinous drainage. Spouse at bedside, has been changing dressing q2-3hrs. Tele SR. NS infusing at 100ml/hr. Plan of Care Reviewed With: patient Overall Patient Progress: improving Goal: Patient-Specific Goal (Individualized) Description: You can add care plan individualizations to a care plan. Examples of Individualizationmight be: Parent requests to be called daily at 9am for status, I have a hard time hearing out of my right ear, or Do not touch me to wake me up as it startles me. Outcome: Progressing Goal: Absence of Hospital-Acquired Illness or Injury Outcome: Progressing Intervention: Identify and Manage Fall Risk Recent Flowsheet Documentation Taken 02/23/2024 0036 by Monae Lacy, RN Safety Promotion/Fall Prevention: activity supervised clutter free environment maintained lighting adjusted nonskid shoes/slippers when out of bed patient and family education room door open room near nurse's station room organization consistent safety round/check completed supervised activity Intervention: Prevent Skin Injury Recent Flowsheet Documentation Taken 02/23/2024 003 by Monae Lacy RN Skin Protection: adhesive use limited Device Skin Pressure Protection: absorbent pad utilized/changed tubing/devices free from skin contact Intervention: Prevent and Manage VTE (Venous Thromboembolism) Risk Recent Flowsheet Documentation Taken 02/23/2024 003 by Monae Lacy RN VTE Prevention/Management: SCDs (sequential compression devices) on Intervention: Prevent Infection Recent Flowsheet Documentation Taken 02/23/2024 003 by Monae Lacy RN Infection Prevention: hand hygiene promoted rest/sleep promoted Goal: Optimal Comfort and Wellbeing Outcome: Progressing Goal: Readiness for Transition of Care Outcome: Progressing Intervention: Mutually Develop Transition Plan Recent Flowsheet Documentation Taken 02/23/2024 0400 by Monae Lacy RN Equipment Currently Used at Home: none Problem: Infection Goal: Absence of Infection Signs and Symptoms Outcome: Progressing * Plan of Care - Mimi Cardona RN - 02/23/2024 12:12 AM CDT Problem: Adult Inpatient Plan of Care Goal: Plan of Care Review Description: The Plan of Care Review/Shift note should be completed every shift. The Outcome Evaluation is a brief statement about your assessment that the patient is improving, declining, or no change. This information will be displayed automatically on your shift note. Outcome: Progressing Flowsheets (Taken 02/23/2024 0003) Outcome Evaluation: alert and oriented x 4. triggered sepsis, lactic 2.4. spiked fever to 103.1. provider notified. given NS bolus and antibiotic added IV. also ice pack. present and supportive. given ibuprofen and pain meds per orders with slight relief. has history of migraine headaches and allergies problems with her sinuses. able to void spontaneously. menses started. urine mik. tolerated clear liquids and jello. sinus surgery to repair deviated septum and inability to breath through her nose yesterday. sats upper 90s on room air. Guaze to nostrils, draining serosanginous drainage. guaze change twice since admitted to room 212-2. states drainage has decreased since surg hanna. Plan of Care Reviewed With: patient spouse Overall Patient Progress: improving Goal: Patient-Specific Goal (Individualized) Description: You can add care plan individualizations to a care plan. Examples of Individualizationmight be: Parent requests to be called daily at 9am for status, I have a hard time hearing out of my right ear, or Do not touch me to wake me up as it startles me. Outcome: Progressing Goal: Absence of Hospital-Acquired Illness or Injury Outcome: Progressing Intervention: Identify and Manage Fall Risk Recent Flowsheet Documentation Taken 02/22/2024 1800 by Mimi Cardona RN Safety Promotion/Fall Prevention: activity supervised clutter free environment maintained lighting adjusted nonskid shoes/slippers when out of bed patient and family education room door open room near nurse's station room organization consistent safety round/check completed supervised activity Intervention: Prevent Skin Injury Recent Flowsheet Documentation Taken 02/22/2024 220 by Mimi Cardona RN Body Position: position changed independently Taken 02/22/2024 1800 by Mimi Cardona RN Skin Protection: adhesive use limited Device Skin Pressure Protection: absorbent pad utilized/changed tubing/devices free from skin contact Taken 02/22/2024 1753 by Mimi Cardona RN Body Position: position changed independently supine, head elevated Intervention: Prevent Infection Recent Flowsheet Documentation Taken 02/22/2024 1800 by Mimi Cardona RN Infection Prevention: hand hygiene promoted rest/sleep promoted Goal: Optimal Comfort and Wellbeing Outcome: Progressing Intervention: Monitor Pain and Promote Comfort Recent Flowsheet Documentation Taken 02/22/20242201 by Mimi Cardona RNrough and trueing machine operator Interventions: cold applied repositioned rest Taken 02/22/2024 1753 by Mimi Cardona RNrough and trueing machine operator Interventions: cold applied repositioned rest quiet environment facilitated Goal: Readiness for Transition of Care Outcome: Progressing Problem: Infection Goal: Absence of Infection Signs and Symptoms Outcome: Progressing Goal Outcome Evaluation: Plan of Care Reviewed With: patient, spouse Overall Patient Progress: improvingOverall Patient Progress: improving Outcome Evaluation: alert and oriented x 4. triggered sepsis, lactic 2.4. spiked fever to 103.1. provider notified. given NS bolus and antibiotic added IV. also ice pack. present and supportive. given ibuprofen and pain meds per orders with slight relief. has history of migraine headaches and allergies problems with her sinuses. able to void spontaneously. menses started. urine mik. tolerated clear liquids and jello. sinus surgery to repair deviated septum and inability to breath through her nose yesterday. sats upper 90s on room air. Guaze to nostrils, draining serosanginous drainage. guaze change twice since admitted to room 212-2. states drainage has decreased since surg hanna. * Provider Notification - Thalia Machado RN - 02/22/2024 10:10 PM CDT DATE/TIME OF CALL RECEIVED FROM LAB: 02/22/24 at 10:10 PM LAB TEST: LACTIC ACID LAB VALUE: 2.4 PROVIDER NOTIFIED?: Yes PROVIDER NAME: ZOILA SANCHEZ DATE/TIME LAB VALUE REPORTED TO PROVIDER: 02/22/24 at 10:11 PM MECHANISM OF PROVIDER NOTIFICATION: Bycler WEB PAGE PROVIDER RESPONSE: NEW ORDERS ENTERED * Provider Notification - Mimi Cardona RN - 02/22/2024 9:59 PM CDT has spiked temp to 103.1, chilling, concerned she looks puffy, eyes and face. looks flushed. triggered sepsis protocol. Thanks Sent to ZOILA Sanchez per voicera text and charge updated. * Provider Notification - Mimi Cardona RN - 02/22/2024 9:43 PM CDT Delivered - 9:35 pm Just spiked temperature 102.1 axillary. Chilling. gave ibuprofen. up to bathroom to urinate. also gave flexiril. still has Headache 04/15 Sent to hospitalist crosscover and charge nurse updated * Pharmacy-Admission Medication History - Axel Oneal - 02/22/2024 3:17 PM CDT Wrister Admission Medication History Admission medication history is complete. The information provided in this note is only as accurateas the sources available at the time of the update. 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 OP) Place 1 drop into both eyes at bedtime Past Week at- atenolol (TENORMIN) 25 MG tablet Take 25 mg by mouth as needed 02/21/2024 at am cyclobenzaprine (FLEXERIL) 10 MG tablet Take 10 mg by mouth 3 times daily as needed for muscle spasms PRN at PRN Fexofenadine HCl (SHEELA PO) Take 1 tablet by mouth daily Past Week at - flecainide (TAMBOCOR) 50 MG tablet Take 50 mg by mouth 2 times daily NOT STARTED at NOT STARTED fluticasone (FLOVENT DISKUS) 250 MCG/ACT inhaler Inhale 1 puff into the lungs every 12 hours Past Week at - ibuprofen (ADVIL/MOTRIN) 200 MG tablet Take 600 mg by mouth every 6 hours as needed for pain 02/21/2024 at pm magnesium oxide 200 MG TABS Take 600 mg by mouth at bedtime 02/21/2024 at - oxyCODONE (OXY-IR) 5 MG capsule Take 5 mg by mouth every 6 hours as needed for severe pain 02/22/2024 at am tiZANidine (ZANAFLEX) 4 MG tablet Take 4 mg by mouth 2 times daily as needed for muscle spasms PastMonth at - traMADol (ULTRAM) 50 MG tablet Take 50 mg by mouth 3 times daily as needed for severe pain NOT STARTED at NOT STARTED Associated attestation - Mars Perdomo RP - 02/22/2024 3:27 PM CDT Although I was not present for the interview, nor did I personally see the patient, to my knowledgethe process engineering intern has compiled the ELEVATOR REPAIRER APPRENTICE medication list to the best of their ability given the information available at the time. Changed Flovent Diskus to Advair. Mars Perdomo [facility] ELEVATOR REPAIRER APPRENTICE Med List Medication Sig Last Dose albuterol (PROAIR HFA/PROVENTIL HFA/VENTOLIN HFA) 108 (90 Base) MCG/ACT inhaler Inhale 2 puffs intothe lungs every 6 hours as needed for shortness of breath, wheezing or cough 02/21/2024 at am Artificial Tear Ointment (LACRI-LUBE S.O.P. OP) Place 1 drop into both eyes at bedtime Past Week at- atenolol (TENORMIN) 25 MG tablet Take 25 mg by mouth as needed 02/21/2024 at am cyclobenzaprine (FLEXERIL) 10 MG tablet Take 10 mg by mouth 3 times daily as needed for muscle spasms PRN at PRN Fexofenadine HCl (SHEELA PO) Take 1 tablet by mouth daily Past Week at - flecainide (TAMBOCOR) 50 MG tablet Take 50 mg by mouth 2 times daily NOT STARTED at NOT STARTED fluticasone-salmeterol (ADVAIR) 250-50 MCG/ACT inhaler Inhale 1 puff into the lungs every 12 hours Past Week ibuprofen (ADVIL/MOTRIN) 200 MG tablet Take 600 mg by mouth every 6 hours as needed for pain 02/21/2024 at pm magnesium oxide 200 MG TABS Take 600 mg by mouth at bedtime 02/21/2024 at - oxyCODONE (OXY-IR) 5 MG capsule Take 5 mg by mouth every 6 hours as needed for severe pain 02/22/2024 at am tiZANidine (ZANAFLEX) 4 MG tablet Take 4 mg by mouth 2 times daily as needed for muscle spasms PastMonth at - traMADol (ULTRAM) 50 MG tablet Take 50 mg by mouth 3 times daily as needed for severe pain NOT STARTED at NOT STARTED documented in this encounter Plan of Treatment Not on file documented as of this encounter Procedures Procedure Name Priority Date/Time Associated Diagnosis Comments CBC WITH PLATELETS AND DIFFERENTIAL Routine 02/25/2024 7:04 AM CDT CBC WITH PLATELETS & DIFFERENTIAL Routine 02/25/2024 7:04 AM CDT MAGNESIUM Routine 02/25/2024 7:04 AM CDT BASIC METABOLIC PANEL Routine 02/25/2024 7:04 AM CDT PROCALCITONIN Routine 02/24/2024 5:50 AM CDT MAGNESIUM Routine 02/24/2024 5:50 AM CDT BASIC METABOLIC PANEL Routine 02/24/2024 5:50 AM CDT CBC WITH PLATELETS Routine 02/24/2024 5: 50 AM CDT PROCALCITONIN Add-On 02/23/2024 5:28 AM CDT MAGNESIUM Add-On 02/23/2024 5:28 AM CDT BASIC METABOLIC PANEL Routine 02/23/2024 5:28 AM CDT CBC WITH PLATELETS Routine 02/23/2024 5: 28 AM CDT LACTIC ACID WHOLE BLOOD Early AM 02/22/2024 11:47 PM CDT CBC WITH PLATELETS AND DIFFERENTIAL STAT 02/22/2024 10:32 PM CDT CBC WITH PLATELETS & DIFFERENTIAL STAT 02/22/2024 10:32 PM CDT CRP INFLAMMATION STAT 02/22/2024 10:3 2 PM CDT BLOOD CULTURE STAT 02/22/2024 10:32 PM CDT BLOOD CULTURE STAT 02/22/2024 10:32 PM CDT LACTIC ACID WHOLE BLOOD WITH 1X REPEAT IN 2 HR WHEN >2 STAT 02/22/2024 10:02 PM CDT ROUTINE UA WITH MICROSCOPIC STAT 02/22/2024 7:06 PM CDT URINE CULTURE Add-On 02/22/2024 7:06 PM CDT XR CHEST 2 VIEWS STAT 02/22/2024 2:[address] HEAD W/O CONTRAST STAT 02/22/2024 2:18 PM CDT VERIGENE GN PANEL Routine 02/22/2024 1:5 7 PM CDT BLOOD CULTURE STAT 02/22/2024 1:57 PM CDT CBC WITH PLATELETS AND DIFFERENTIAL STAT 02/22/2024 1:51 PM CDT PROCALCITONIN STAT 02/22/2024 1:51 PM CDT CBC WITH PLATELETS & DIFFERENTIAL STAT 02/22/2024 1:51 PM CDT MAGNESIUM Add-On 02/22/2024 1:51 PM CDT COMPREHENSIVE METABOLIC PANEL STAT 02/22/2024 1:51 PM CDT BLOOD CULTURE STAT 02/22/2024 1:51 PM CDT EKG 12-LEAD, TRACING ONLY STAT 02/22/2024 1:20 PM CDT documented in this encounter Results * (ABNORMAL) CBC with platelets and differential (02/25/2024 7:04 AM CDT) WBC Count 2.9(L) 4.0 - 11.0 10e3/uL [...] MD LAB - BLOOD ORDERABL ES LABORATORY [facility] [address] [facility] Lab (1st floor, no room number) [place] [address] * (ABNORMAL) Basic metabolic panel (02/25/2024 7:04 AM CDT) Sodium 142 135 - 145 mmol/L 02/25/2024 7:52 AM CDT [facility]ORY Comment:Reference intervals for this [...] - 107 mmol/L 02/25/2024 7:52 AM CDT [facility] Carbon Dioxide (CO2) 23 22 - 29 mmol/L 02/25/2024 7:52 AM CDT [facility] Anion Gap 10 7 - 15 mmol/L 02/25/2024 7:52 AM CDT [facility] Urea Nitrogen 10.3 6.0 - 20.0 mg/dL 02/25/2024 7:52 AM CDT [facility] Creatinine 0.82 0.51 - 0.95 mg/dL 02/25/2024 7:52 AM CDT [facility] GFR Estimate >90 >60 mL/min/1. 73m2 02/25/2024 7:52 AM CDT [facility] Calcium 8.2(L) 8.6 - 10.0 mg/dL 02/25/2024 7:52 AM CDT [facility] Glucose 94 70 - 99 mg/dL 02/25/2024 7:52 AM CDT [facility] Blood STRUCTURE OF LEFT UPPER LIMB / Unknown Venipuncture / Unknown 02/25/2024 7:04 AM CDT 02/25/2024 7:21 AM CDT Socrates Bay MD LAB - BLOOD ORDERABL ES LABORATORY [facility] [address] Lab (1st floor, no room number) [address] * Magnesium (02/25/2024 7:04 AM CDT) Magnesium 2.0 1.7 - 2.3 mg/dL 02/25/2024 7:52 AM CDT LABORATORY Blood STRUCTURE OF LEFT UPPER LIMB / Unknown Venipuncture / Unknown 02/25/2024 7:04 AM CDT 02/25/2024 7:21 AM CDT Socrates Bay MD LAB - BLOOD ORDERABL ES Performing Organization Address [facility] Co de Phone Number [facility] [address] Lab (1st floor, no room number) [address] * (ABNORMAL) Procalcitonin (02/24/2024 5:50 AM CDT) Procalcitonin 3.76(H) <0.50 ng/mL 02/24/2024 6:38 AM CDT [facility] Comment: Interpretation and Recommendations <0.5 ng/mL: Systemic bacterial infection unlikely. Local bacterial infection is possible. 0.5-1.99 ng/mL: Systemic bacterial infection possible, but various other conditions are known to induce PCT as well. >=2.00 ng/mL: Systemic bacterial infection likely, unless other causes are known. Decision to start antibiotics should not be based on procalcitonin level alone. See Procalcitonin Guidance document for more details. [email or web address] Factors that may affect PCT levels (not [...] MD LAB - BLOOD ORDERABL ES LABORATORY [facility] [address] [facility] Lab (1st floor, no room number) [place] [address], [facility] * (ABNORMAL) Basic metabolic panel (02/24/2024 5:50 AM CDT) [facility] Sodium 140 135 - 145 mmol/L 02/24/2024 6:38 AM CDT LABORATORY Comment:Reference intervals for this test were updated on 07/02/2023 to more accurately reflect our healthy population. There may be differences in the flagging of prior results with similar values performed with this method. Interpretation of those prior results can be made in the context of the updated reference intervals. Potassium 3.7 3.4 - 5.3 mmol/L 02/24/2024 6:38 AM CDT LABORATORY Chloride 109(H) 98 - 107 mmol/L 02/24/2024 6:38 AM CDT LABORATORY Carbon Dioxide (CO2) 20(L) 22 - 29 mmol/L 02/24/2024 6:38 AM CDT LABORATORY Anion Gap 11 7 - 15 mmol/L 02/24/2024 6:38 AM CDT LABORATORY Urea Nitrogen 7.7 6.0 - 20.0 mg/dL 02/24/2024 6:38 AM CDT LABORATORY Creatinine 0.89 0.51 - 0.95 mg/dL 02/24/2024 6:38 AM CDT LABORATORY GFR Estimate 82 >60 mL/min/1. 73m2 02/24/2024 6:38 AM CDT LABORATORY Calcium 7.7(L) 8.6 - 10.0 mg/dL 02/24/2024 6:38 AM CDT LABORATORY Glucose 97 70 - 99 mg/dL 02/24/2024 6:38 AM CDT LABORATORY Blood STRUCTURE OF LEFT UPPER LIMB / Unknown Venipuncture / Unknown 02/24/2024 5:50 AM CDT 02/24/2024 6:02 AM CDT Socrates Bay MD LAB - BLOOD ORDERABL ES LABORATORY [facility] [address] [facility] Lab (1st floor, no room number) [place] [address], [facility] * (ABNORMAL) CBC with platelets (02/24/2024 5:50 AM CDT) WBC Count 3.4(L) 4.0 - 11.0 10e3/uL 02/24/2024 6:39 AM CDT LABORATORY RBC Count 3.66(L) 3.80 - 5.20 [...] Bay MD LAB - BLOOD ORDERABL ES [facility] [address] Lab (1st floor, no room number) [place] [phone] [place] [address] * Magnesium (02/24/2024 5:50 AM CDT) Magnesium 1.9 1.7 - 2.3 mg/dL 02/24/2024 6:38 AM CDT [facility] LAB[facility]ATORY Blood STRUCTURE OF LEFT UPPER LIMB / Unknown Venipuncture / Unknown 02/24/2024 5:50 AM CDT 02/24/2024 6:02 AM CDT Socrates Bay MD LAB - BLOOD ORDERABL ES [facility] [address] Lab (1st floor, no room number) [place] [address] * (ABNORMAL) Procalcitonin (02/23/2024 5:28 AM CDT) [facility] Procalcitonin 6.93(HH) <0.50 ng/mL 02/23/2024 9:24 AM CDT LABORATORY Comment: Interpretation and Recommendations [...] See Procalcitonin Guidance document for more details. [email or web address] Factors that may affect PCT levels (not [...] and cystic fibrosis. Blood STRUCTURE OF LEFT HAND / Unknown Venipuncture / Unknown 02/23/2024 5:28 AM CDT 02/23/2024 5:31 AM CDT Socrates Bay MD LAB - BLOOD ORDERABL ES Performing Organization Address [facility]/ZIP Co de Phone Number LABORATORY [facility] [address] Lab (1st floor, no room number) [place] [phone] [place] [address] * Magnesium (02/23/2024 5:28 AM CDT) Magnesium 1.8 1.7 - 2.3 mg/dL 02/23/2024 6:55 AM CDT [facility] LAB[facility]ATORY Blood STRUCTURE OF LEFT HAND / Unknown Venipuncture / Unknown 02/23/2024 5:28 AM CDT 02/23/2024 5:31 AM CDT Socrates Bay MD LAB - BLOOD ORDERABL ES Performing Organization Address [facility]/ZIP Co de Phone Number LABORATORY [facility] [address] Lab (1st floor, no room number) [address] [place] [address] * (ABNORMAL) CBC with platelets (02/23/2024 5:28 AM CDT) WBC Count 7.1 4.0 - 11.0 10e3/uL 02/23/2024 5:35 AM CDT [facility] LAB[facility] RBC Count 3.42(L) 3.80 - 5.20 10e6/uL 02/23/2024 5:35 AM CDT [facility] Hemoglobin 10.4(L) 11.7 - 15.7 g/dL 02/23/2024 5:35 AM CDT [facility] LAB[facility] Hematocrit 30.7(L) 35.0 - 47.0 % 02/23/2024 5:35 AM CDT RH LAB[facility]ATORY MCV 90 78 - 100 fL 02/23/2024 5:35 AM CDT [facility] LAB[facility]ORY MCH 30.4 26.5 - 33.0 pg 02/23/2024 5:35 AM CDT [facility] LAB[facility]ATORY MCHC 33.9 31.5 - 36.5 g/dL 02/23/2024 5:35 AM CDT [facility] LAB[facility] RDW 12.6 10.0 - 15.0 % 02/23/2024 5:35 AM CDT [facility] Platelet Count 83(L) 150 - 450 10e3/uL 02/23/2024 5:35 AM CDT [facility] LAB[facility] Blood STRUCTURE OF LEFT HAND / Unknown Venipuncture / Unknown 02/23/2024 5:28 AM CDT 02/23/2024 5:31 AM CDT La Esteban Leonel GUADARRAMA LAB - BLOOD ORDER DOT LABORATORY [facility] [address] Lab (1st floor, no room number) [place] [address] * (ABNORMAL) Basic metabolic panel (02/23/2024 5:28 AM CDT) Sodium 137 135 - 145 mmol/L 02/23/2024 5:57 AM CDT LABORATORY Comment:Reference intervals for this test were updated on 07/02/2023 to more accurately reflect our healthy population. There may be differences in the flagging of prior results with similar values performed with this method. Interpretation of those prior results can be made in the context of the updated reference intervals. Potassium 3.5 3.4 - 5.3 mmol/L 02/23/2024 5:57 AM CDT LABORATORY Chloride 110(H) 98 - 107 mmol/L 02/23/2024 5:57 AM CDT LABORATORY Carbon Dioxide (CO2) 21(L) 22 - 29 mmol/L 02/23/2024 5:57 AM CDT LABORATORY Anion Gap 6(L) 7 - 15 mmol/L 02/23/2024 5:57 AM CDT LABORATORY Urea Nitrogen 7.4 6.0 - 20.0 mg/dL 02/23/2024 5:57 AM CDT LABORATORY Creatinine 0.75 0.51 - 0.95 mg/dL 02/23/2024 5:57 AM CDT LABORATORY GFR Estimate >90 >60 mL/min/1. 73m2 02/23/2024 5:57 AM CDT LABORATORY Calcium 7.7(L) 8.6 - 10.0 mg/dL 02/23/2024 5:57 AM CDT LABORATORY Glucose 104(H) 70 - 99 mg/dL 02/23/2024 5:57 AM CDT [facility] LAB[facility] Blood STRUCTURE OF LEFT HAND / Unknown Venipuncture / Unknown 02/23/2024 5:28 AM CDT 02/23/2024 5:31 AM CDT La CUMMINGS-C LAB - BLOOD ORDER DOT RH LABORATORY [facility] [address] Lab (1st floor, no room number) [place] [phone] [place] [address] * Lactic acid whole blood (02/22/2024 11:47 PM CDT) Lactic Acid 0.9 0.7 - 2.0 mmol/L 02/22/2024 11:51 PM CDT [facility] LAB[facility] Blood STRUCTURE OF LEFT HAND / Unknown Venipuncture / Unknown 02/22/2024 11:47 PM CDT 02/22/2024 11:49 PM CDT La CUMMINGS-C LAB - BLOOD ORDER DOT Performing Organization Address [facility]/ZIP Co de Phone Number [facility] LABORATORY [facility] [address] Lab (1st floor, no room number) [address] * (ABNORMAL) CBC with platelets and differential (02/22/2024 10:32 PM CDT) WBC Count 6.4 4.0 - 11.0 10e3/uL 02/22/2024 10:40 PM CDT [facility] RBC Count 3.33(L) 3.80 - 5.20 10e6/uL 02/22/2024 10:40 PM CDT [facility] LAB[facility] Hemoglobin 10.0(L) 11.7 - 15.7 g/dL 02/22/2024 10:40 PM CDT [facility] LAB[facility] Hematocrit 29.9(L) 35.0 - 47.0 % 02/22/2024 10:40 PM CDT [facility] LAB[facility]ORY MCV 90 78 - 100 fL 02/22/2024 10:40 PM CDT RH LAB[facility]ATORY MCH 30.0 26.5 - 33.0 pg 02/22/2024 10:40 PM CDT [facility] MCHC 33.4 31.5 - 36.5 g/dL 02/22/2024 10:40 PM CDT [facility] RDW 12.4 10.0 - 15.0 % 02/22/2024 10:40 PM CDT [facility] Platelet Count 99(L) 150 - 450 10e3/uL 02/22/2024 10:40 PM CDT [facility] % Neutrophils 94 % 02/22/2024 10:40 PM CDT [facility] % Lymphocytes 6 % 02/22/2024 10:40 PM CDT [facility] % Monocytes 0 % 02/22/2024 10:40 PM CDT [facility] % Eosinophils 0 % 02/22/2024 10:40 PM CDT [facility] % Basophils 0 % 02/22/2024 10:40 PM CDT [facility] % Immature Granulocytes 0 % 02/22/2024 10:40 PM CDT RH LAB[facility]ATORY NRBCs per 100 WBC 0 <1 /100 024 10:40 PM CDT [facility] LAB[facility] Absolute Neutrophils 6.0 1.6 - 8.3 10e3/uL 02/22/2024 10:40 PM CDT [facility] LAB[facility] Absolute Lymphocytes 0.4(L) 0.8 - 5.3 10e3/uL 02/22/2024 10:40 PM CDT [facility] LAB[facility] Absolute Monocytes 0.0 0.0 - 1.3 10e3/uL 02/22/2024 10:40 PM CDT [facility] LAB[facility] Absolute Eosinophils 0.0 0.0 - 0.7 10e3/uL 02/22/2024 10:40 PM CDT [facility] LAB[facility] Absolute Basophils 0.0 0.0 - 0.2 10e3/uL 02/22/2024 10:40 PM CDT RH LAB[facility] Absolute Immature Granulocytes 0.0 <=0.4 10e3/uL 02/22/2024 10:40 PM CDT [facility] LAB[facility]ATORY Absolute NRBCs 0.0 10e3/uL 02/22/2024 10:40 PM CDT [facility] LAB[facility] Blood STRUCTURE OF LEFT UPPER LIMB / Unknown Venipuncture / Unknown 02/22/2024 10:32 PM CDT 02/22/2024 10:37 PM CDT La aCstaneda PA-C LAB - BLOOD ORDER DOT LABORATORY [facility] [address] Lab (1st floor, no room number) [place] [address] * (ABNORMAL) CRP inflammation (02/22/2024 10:32 PM CDT) CRP Inflammation 42.29(H) <5.00 mg/L 02/22/2024 10:58 PM CDT [facility] Blood STRUCTURE OF LEFT UPPER LIMB / Unknown Venipuncture / Unknown 02/22/2024 10:32 PM CDT 02/22/2024 10:37 PM CDT La CUMMINGS-C LAB - BLOOD ORDER DOT Performing Organization Address City/[facility]/ZIP Co de Phone Number LABORATORY [facility] [address] Lab (1st floor, no room number) [place] [address] * Blood Culture Arm, Left (02/22/2024 10:32 PM CDT) Culture No Growth 02/28/2024 1:05 AM CDT [facility] Blood STRUCTURE OF LEFT UPPER LIMB / Unknown Venipuncture / Unknown 02/22/2024 10:32 PM CDT 02/22/2024 10:37 PM CDT La CUMMINGS-C LAB - MICRO GENER AL ORDERABLES [facility] Inf. Diseases Diag. Lab [address], [address] [place] [address], [facility] * Blood Culture Arm, Left (02/22/2024 10:32 PM CDT) Culture No Growth 02/28/2024 1:05 AM CDT [facility] Blood STRUCTURE OF LEFT UPPER LIMB / Unknown Venipuncture / Unknown 02/22/2024 10:32 PM CDT 02/22/2024 10:37 PM CDT La Castaneda PA-C LAB - MICRO GENER AL ORDERABLES [facility] Inf. Diseases Diag. Lab [address], [address] [place] [address], [facility] * (ABNORMAL) Lactic Acid Whole Blood w/ 1x repeat in 2 hrs when >2 (02/22/2024 10:02 PM CDT) Lactic Acid, Initial 2.4(H) 0.7 - 2.0 mmol/L 02/22/2024 10:07 PM CDT LABORATORY Blood STRUCTURE OF LEFT HAND / Unknown Venipuncture / Unknown 02/22/2024 10:02 PM CDT 02/22/2024 10:05 PM CDT La Castaneda PA-C LAB - BLOOD ORDER DOT LABORATORY [facility] [address] [facility] Lab (1st floor, no room number) [place] [address], [facility] * (ABNORMAL) Urine Culture (02/22/2024 7:06 PM [...] MICRO GENER AL ORDERABLES [facility] Inf. Diseases Diag. Lab [address], [address] [place] [address] * (ABNORMAL) UA with Microscopic (02/22/2024 7:06 PM CDT) Color Urine Y[place](A) Colorless, Straw, Light Yellow, Yellow 02/22/2024 7:42 PM CDT [facility] Appearance Urine Slightly Cloudy(A) Clear 02/22/2024 7:42 PM CDT [facility] Glucose Urine Negative Negative mg/dL 02/22/2024 7:42 PM CDT [facility] Bilirubin Urine Negative Negative 7:42 PM CDT [facility] Ketones Urine Negative Negative mg/dL 02/22/2024 7:42 PM CDT [facility] Specific [place] Urine 1.018 1.003 - 1.035 02/22/2024 7:42 PM CDT [facility] Blood Urine Large(A) Negative 02/22/2024 7:42 PM CDT [facility] pH Urine 5.5 5.0 - 7.0 02/22/2024 7:42 PM CDT [facility] Protein Albumin Urine 30(A) Negative mg/dL [...] PA-C LAB - URINE ORDER DOT LABORATORY [facility] [address] Lab (1st floor, no room number) [place] [address] * Chest XR, PA & LAT (02/22/2024 2:34 PM CDT) Anatomical Region Laterality Modality Chest Digital Radiogra phy 02/22/2024 2:34 PM CDT Impressions 02/22/2024 3:01 PM CDT IMPRESSION: Negative chest. Narrative 02/22/2024 3:01 PM CDT EXAM: XR CHEST 2 VIEWS LOCATION: [facility] DATE: 02/22/2024 INDICATION: rigors, recent surgery, ? PNA COMPARISON: 04/08/2023 Procedure Note Pantera Soriano MD - 02/22/2024 EXAM: XR CHEST 2 VIEWS LOCATION: [facility] DATE: 02/22/2024 INDICATION: rigors, recent surgery, ? [...] CDT EXAM: CT HEAD W/O CONTRAST LOCATION: [facility] DATE: 02/22/2024 INDICATION: recent rhinoplasty, ? Seizure [...] 02/22/2024 EXAM: CT HEAD W/O CONTRAST LOCATION: [facility] DATE: 02/22/2024 INDICATION: recent rhinoplasty, ? Seizure [...] 1. Normal head CT. Fam Rodriguez MD [facility] CT ORDERABLES * (ABNORMAL) Verigene GN Panel [...] MICRO GENER AL ORDERABLES [facility] Inf. Diseases Diag. Lab [address], [address] [place] [address], [facility] * (ABNORMAL) Blood Culture Arm, Right (02/22/2024 1:57 PM CDT) Culture Positive on the 1st day of incubation(A) 02/25/2024 7:53 AM CDT [facility] Culture Klebsiella oxytoca(AA) 02/25/2024 7:53 AM CDT [facility] Comment:1 of 2 bottles Blood STRUCTURE OF RIGHT UPPER LIMB / Unknown Venipuncture / Unknown 02/22/2024 1:57 PM CDT 02/22/2024 2:01 PM CDT Narrative Organism Antibiotic Method Susceptibility Klebsiella oxytoca Ampicillin HEATHER Resistant Comment:Intrinsicall y Resistant Klebsiella oxytoca Ampicillin/ Sulbactam HEATHER 4 ug/mL: Susceptible Klebsiella oxytoca Piperacillin/Tazobactam HEATHER <=4 ug/mL: Susceptible Klebsiella oxytoca Ceftazidime HEATHER <=1 ug/mL: Susceptible Klebsiella oxytoca Ceftriaxone HEATHER <=1 ug/mL: Susceptible Klebsiella oxytoca Cefepime HEATHER <=1 ug/mL: Susceptible Klebsiella oxytoca Meropenem HEATHER <=0.25 ug/mL: Susceptible Klebsiella oxytoca Gentamicin HEATHER <=1 ug/mL: Susceptible Klebsiella oxytoca Tobramycin HEATHER <=1 ug/mL: Susceptible Klebsiella oxytoca Ciprofloxacin HEATHER <=0.25 ug/mL: Susceptible Klebsiella oxytoca Levofloxacin HEATHER <=0.12 ug/mL: Susceptible Klebsiella oxytoca Trimethoprim/Sulfamethoxazole HEATHER <=1/19 ug/mL: Susceptible Fam Rodriguez MD LAB - MICRO GENER AL ORDERABLES [facility] Inf. Diseases Diag. Lab [address], [address] [place] [address], [facility] * (ABNORMAL) Magnesium (02/22/2024 1:51 PM CDT) Magnesium 1.5(L) 1.7 - 2.3 mg/dL 02/22/2024 6:19 PM CDT LABORATORY Blood STRUCTURE OF LEFT UPPER LIMB / Unknown Venipuncture / Unknown 02/22/2024 1:51 PM CDT 02/22/2024 2:01 PM CDT La Castaneda PA-C LAB - BLOOD ORDER DOT LABORATORY [facility] [address] Lab (1st floor, no room number) [place] [address], [facility] * (ABNORMAL) CBC with platelets and differential (02/22/2024 1:51 PM CDT) [facility] Signature WBC Count 5.1 4.0 - 11.0 10e3/uL 02/22/2024 3:00 PM CDT [facility] RBC Count 3.70(L) 3.80 - 5.20 10e6/uL 02/22/2024 3:00 PM CDT [facility] Hemoglobin 11.3(L) 11.7 - 15.7 g/dL 02/22/2024 3:00 PM CDT [facility] Hematocrit 33.4(L) 35.0 - 47.0 % 02/22/2024 3:00 PM CDT [facility] MCV 90 78 - 100 fL 02/22/2024 3:00 PM CDT [facility] MCH 30.5 26.5 - 33.0 pg 02/22/2024 3:00 PM CDT [facility] MCHC 33.8 31.5 - 36.5 g/dL 02/22/2024 3:00 PM CDT [facility] RDW 12.2 10.0 - 15.0 % 02/22/2024 3:00 PM CDT [facility] Platelet Count 117(L) 150 - 450 10e3/uL 02/22/2024 3:00 PM CDT [facility] % Neutrophils 94 % 02/22/2024 3:00 PM CDT [facility] % Lymphocytes 6 % 02/22/2024 3:00 PM CDT [facility] % Monocytes 0 % 02/22/2024 3:00 PM CDT [facility] % Eosinophils 0 % 02/22/2024 3:00 PM CDT [facility] % Basophils 0 % 02/22/2024 3:00 PM CDT [facility] % Immature Granulocytes 0 % 02/22/2024 3:00 PM CDT [facility] NRBCs per 100 WBC 0 <1 /100 024 3:00 PM CDT [facility] Absolute Neutrophils 4.7 1.6 - 8.3 10e3/uL 02/22/2024 3:00 PM CDT [facility] Absolute Lymphocytes 0.3(L) 0.8 - 5.3 10e3/uL 02/22/2024 3:00 PM CDT [facility] Absolute Monocytes 0.0 0.0 - 1.3 10e3/uL 02/22/2024 3:00 PM CDT [facility] Absolute Eosinophils 0.0 0.0 - 0.7 10e3/uL 02/22/2024 3:00 PM CDT [facility] Absolute Basophils 0.0 0.0 - 0.2 10e3/uL 02/22/2024 3:00 PM CDT [facility] Absolute Immature Granulocytes 0.0 <=0.4 10e3/uL 02/22/2024 3:00 PM CDT [facility] Absolute NRBCs 0.0 10e3/uL 02/22/2024 3:00 PM CDT [facility] Blood STRUCTURE OF LEFT UPPER LIMB / Unknown Venipuncture / Unknown 02/22/2024 1:51 PM CDT 02/22/2024 2:01 PM CDT Fam Rodriguez MD LAB - BLOOD ORDER DOT LABORATORY [facility] [address] [facility] Lab (1st floor, no room number) [place] [address] * (ABNORMAL) Procalcitonin (02/22/2024 1:51 PM CDT) Procalcitonin 0.69(H) <0.50 ng/mL 02/22/2024 2:28 PM CDT [facility] Comment: Interpretation and Recommendations <0.5 ng/mL: Systemic bacterial infection unlikely. Local bacterial infection is possible. 0.5-1.99 ng/mL: Systemic bacterial infection possible, but various other conditions are known to induce PCT as well. >=2.00 ng/mL: Systemic bacterial infection likely, unless other causes are known. Decision to start antibiotics should not be based on procalcitonin level alone. See Procalcitonin Guidance document for more details. [email or web address] Factors that may affect PCT levels (not [...] Rodriguez MD LAB - BLOOD ORDER DOT [facility] [address] [facility] Lab (1st floor, no room number) [place] [address], [facility] * Blood Culture Arm, Left (02/22/2024 1:51 PM CDT) Culture No Growth 02/27/2024 3:32 PM CDT [facility] Blood STRUCTURE OF LEFT UPPER LIMB / Unknown Venipuncture / Unknown 02/22/2024 1:51 PM CDT 02/22/2024 2:01 PM CDT Fam Rodriguez MD LAB - MICRO GENER AL ORDERABLES Performing Organization Address City/[facility]/ZIP Co de Phone Number [facility] Inf. Diseases Diag. Lab [address], [address] [place] [address], [facility] * (ABNORMAL) Comprehensive metabolic panel (02/22/2024 1:51 PM CDT) [facility] Sodium 140 135 - 145 mmol/L 02/22/2024 2:25 PM CDT [facility] Comment:Reference [...] - 15 mmol/L 02/22/2024 2:25 PM CDT [facility] Urea Nitrogen 10.4 6.0 - 20.0 mg/dL 02/22/2024 2:25 PM CDT [facility] Creatinine 0.76 0.51 - 0.95 mg/dL 02/22/2024 2:25 PM CDT [facility] GFR Estimate >90 >60 mL/min/1. 73m2 02/22/2024 2:25 PM CDT [facility] Calcium 8.2(L) 8.6 - 10.0 mg/dL 02/22/2024 2:25 PM CDT [facility] Chloride 107 98 - 107 mmol/L 02/22/2024 2:25 PM CDT [facility] Glucose 107(H) 70 - 99 mg/dL [...] LAB - BLOOD ORDER DOT [facility] [address] [facility] Lab (1st floor, no room number) [place] [address] * EKG 12-lead, tracing only (02/22/2024 1:20 PM CDT) Systolic Blood Pressure mmHg RADIOLOGY RESULTS Diastolic Blood Pressure mmHg RADIOLOGY RESULTS Ventricular Rate 99 BPM RAD IOLOGY RESULTS Atrial Rate 99 BPM RADIOLOG Y RESULTS WV Interval 198 ms RADIOLOG Y RESULTS QRS Duration 92 ms RADIOLO GY RESULTS QT 372 ms RADIOLOGY RESULTS QTc 477 ms RADIOLOGY RESULTS P [place] 12 degrees RADIOLOGY RESULTS R AXIS 46 degrees RADIOLOGY RESULTS T [place] -16 degrees RADIOLOGY RESULTS Interpretation ECG Sinus rhythm Incomplete right bundle branch block Cannot rule out Anterior infarct , age undetermined Abnormal ECG When compared with ECG of 24-JAN-2006 18:40, Significant changes have occurred Confirmed by - EMERGENCY ROOM, PHYSICIAN (Liliana), science editor ERIN HERNANDEZ (Giorgi) on 02/24/2024 7:24:18 AM RADIOLOGY RESULTS 02/22/2024 1:20 PM CDT 02/24/2024 7:24 AM CDT Adan Pitt MD ECG ORDERABLES RADIOLOGY RESULTS documented in this encounter Visit Diagnoses Diagnosis Bacteremia- Primary Hypokalemia Hypopotassemia Recurrent syncope History of nasal septoplasty Other postprocedural status Nausea Nausea alone Hypokalemia Hypopotassemia History of nasal septoplasty Other postprocedural status Recurrent syncope documented in this encounter Administered Medications Inactive Administered Medications - up to 3 most recent administrations Medication Order MAR Action Action Date Dose Rate Site albuterol (PROVENTIL HFA/VENTOLIN HFA) inhaler 2 puff, Inhalation, EVERY 6 HOURS PRN, shortness of breath, wheezing, cough, Starting on 02/23/24 at 0818, Check the dose counter on the inhaler to ensure there are doses remaining before administering. Prime by spraying into the air 4 times prior to first use and if not used within 2 weeks. $Given 02/24/2024 2:31 AM CDT 2 puffs $Given 02/23/2024 11:36 AM CDT 2 puffs cefTRIAXone (ROCEPHIN) 2 g vial to attach to NS 100 ml bag for ADULTS or NS 50 ml bag for PEDS STAT, 2 g, Intravenous, ONCE, On 02/22/24 at 1650, For 1 dose, For 30 minutes., Indications: post-op ppx (sinus surgery) $New Bag 02/22/2024 5:05 PM CDT 2 g cyclobenzaprine (FLEXERIL) tablet 10 mg 10 mg, Oral, 3 TIMES DAILY PRN, muscle spasms, Starting on 02/22/24 at 1753 $Given 02/23/2024 4:13 PM CDT 10 m g $Given 02/23/2024 6:49 AM CDT 10 mg $Given 02/22/2024 9:02 PM CDT 10 mg cyclobenzaprine (FLEXERIL) tablet 10 mg 10 mg, Oral, EVERY 8 HOURS PRN, muscle spasms, Starting on 02/24/24 at 0951, Hold sedation, confusion $Given 02/24/2024 2:20 PM CDT 10 mg diphenhydrAMINE (BENADRYL) capsule 25 mg 25 mg, Oral, EVERY 6 HOURS PRN, itching, Starting on 02/23/24 at 1938 diphenhydrAMINE (BENADRYL) injection 25 mg 25 mg, Intravenous, ONCE, On 02/22/24 at 1505, For 1 dose $Given 02/22/2024 3:40 PM CDT 25 mg diphenhydrAMINE (BENADRYL) injection 25 mg 25 mg, Intravenous, EVERY 6 HOURS PRN, itching, other, headache, Starting on 02/23/24 at 1938 $Given 02/23/2024 8:39 PM CDT 25 mg famotidine (PEPCID) tablet 10 mg 10 mg, Oral, DAILY, First dose on 02/24/24 at 1030 $Given 02/25/2024 8:30 AM CDT 10 mg $Given 02/24/2024 11:17 AM CDT 10 mg fluticasone-vilanterol (BREO ELLIPTA) 100-25 MCG/ACT inhaler 1 puff 1 puff, Inhalation, DAILY, First dose on 02/23/24 at 0900, This therapy was substituted for Fluticasone salmeterol (ADVAIR DISKUS) 250/50 mcg inhaler 1-2 puffs Daily or BID. Check the dose counter on the inhaler to ensure there are doses remaining before administering. $Given 02/24/2024 8:01 AM CDT 1 puff $Given 02/23/2024 10:40 AM CDT 1 puff fluticasone-vilanterol (BREO ELLIPTA) 100-25 MCG/ACT inhaler 1 puff 1 puff, Inhalation, 2 TIMES DAILY, First dose (after last modification) on 02/24/24 at 2200, This therapy was substituted for Fluticasone salmeterol (ADVAIR DISKUS) 250/50 mcg inhaler 1-2 puffs Daily or BID. Check the dose counter on the inhaler to ensure there are doses remaining before administering. $Given 02/25/2024 8:30 AM CDT 1 puff $Given 02/24/2024 9:47 PM CDT 1 puff furosemide (LASIX) injection 40 mg 40 mg, Intravenous, ONCE, Administer over 1-3 Minutes, On 02/24/24 at 1100, For 1 dose $Given 02/24/2024 11:27 AM CDT 40 mg HYDROmorphone (DILAUDID) injection 0.4 mg 0.4 mg, Intravenous, EVERY 2 HOURS PRN, severe pain, Starting on 02/23/24 at 2250 $Given 02/23/2024 11:10 PM CDT 0.4 mg HYDROmorphone (DILAUDID) tablet 2 mg 2 mg, Oral, EVERY 3 HOURS PRN, other, severe pain, must try oral medications first -, Starting on 02/24/24 at 0955, 1 hour apart from any other sedative Hold for RASS<-2 Hold for SBP <90 Hold for sedation Hold for RR<12 Hold for SpO2<90% HYDROmorphone (PF) (DILAUDID) injection 0.5 mg 0.5 mg, Intravenous, EVERY 15 MIN PRN, severe pain, Starting on 02/22/24 at 1342, For 3 doses $Given 02/22/2024 1:51 PM CDT 0.5 mg ibuprofen (ADVIL/MOTRIN) tablet 600 mg 600 mg, Oral, EVERY 6 HOURS PRN, inflammatory pain, fever, mild pain, Starting on 02/22/24 at 1753, Give with food. $Given 02/24/2024 7:06 AM CDT 600 mg $Given 02/23/2024 4:36 PM CDT 600 mg $Given 02/23/2024 10:43 AM CDT 600 mg ibuprofen (ADVIL/MOTRIN) tablet 800 mg 800 mg, Oral, EVERY 6 HOURS, First dose on 02/24/24 at 1000, Give with food. $Given 02/25/2024 1:58 PM CDT 800 mg $Given 02/25/2024 8:30 AM CDT 800 mg $Given 02/25/2024 1:19 AM CDT 800 mg ketorolac (TORADOL) injection 30 mg 30 mg, Intravenous, EVERY 6 HOURS PRN, inflammatory pain, Starting on 02/23/24 at 1936, For 5 days, Can cause pain on injection. If ordered intravenously (IV) : administer through a running maintenance fluid over 1 minute followed by a flush. If patient complains of pain on injection, may dilute 15-30 mg in 5 mL and push over 1 to 2 minutes. $Given 02/24/2024 2:07 AM CDT 30 mg levofloxacin (LEVAQUIN) tablet 500 mg Routine, 500 mg, Oral, DAILY, First dose on Sat02/25/24 at 1400, Administer at least 2 hours before or 4 hours after aluminum, calcium, iron, zinc or magnesium containing medications. May be taken with food or on an empty stomach. Do not administer alone with a dairy product like milk or yogurt or calcium-fortified juice, but may be administered with a meal containing dairy. Hold tube feeding 1 hour before and 1 hour after administration, Indications: Bacteremia $Given 02/25/2024 1:58 PM CDT 500 mg lidocaine (XYLOCAINE) 5 % ointment Topical, 4 TIMES DAILY, First dose on Sat02/25/24 at 1200, Apply to neck, back, SI joint $Given 02/25/2024 1:50 PM CDT magnesium oxide (MAG-OX) half-tab 600 mg 600 mg, Oral, AT BEDTIME, First dose on Sat02/23/24 at 2300 $Given 02/24/2024 9:22 PM CDT 600 mg $Given 02/23/2024 11:10 PM CDT 600 mg metoclopramide (REGLAN) injection 10 mg 10 mg, Intravenous, Administer over 2 Minutes, ONCE, On 02/22/24 at 1505, For 1 dose, Avoid use if patient has full bowel obstruction or perforation. Irritant. $Given 02/22/2024 3:40 PM CDT 10 mg metoclopramide (REGLAN) injection 10 mg 10 mg, Intravenous, Administer over 2 Minutes, EVERY 6 HOURS, First dose on Sat02/22/24 at 2000, Avoid use if patient has full bowel obstruction or perforation. Irritant. $Given 02/25/2024 8:30 AM CDT 10 mg $Given 02/25/2024 1:19 AM CDT 10 mg $Given 02/24/2024 7:05 PM CDT 10 mg naloxone (NARCAN) injection 0.2 mg 0.2 mg, Intravenous, EVERY 2 MIN PRN, opioid reversal, Starting on 02/22/24 at 1807, Administer intravenous route when available and notify provider when administered. For unintended sedation or respiratory depression if all of the below criteria are met: ~ respiratory rate LESS than or EQUAL to 8. ~SaO2 less than 92% and or/end-tidal CO2 is greater than 50. ~ the patient is receiving an opioid, has unintended sedations assessed as RASS (-3), and is currently not on mechanical ventilation. RASS scale moderate (-3) is movement or eye opening to voice but no eye contact. Patient Monitoring Once the patient has demonstrated a response to the naloxone, continue to monitor respiratory rate, depth, oxygen saturation and end-tidal CO2 (if available) every 15 minutes x 2, then every 30 minutes x 2, then every 1 hour x 1 after each naloxone dose. Consider transfer to ICU if patient respiratory parameters have not improved after 4 naloxone doses. naloxone (NARCAN) injection 0.2 mg 0.2 mg, Intramuscular, EVERY 2 MIN PRN, opioid reversal, Starting on 02/22/24 at 1807, Administer intramuscular if an intravenous route is not available and notify provider when administered. For unintended sedation or respiratory depression if all of the below criteria are met: ~ respiratory rate LESS than or EQUAL to 8. ~SaO2 less than 92% and or/end-tidal CO2 is greater than 50. ~ the patient is receiving an opioid, has unintended sedations assessed as RASS (-3), and is currently not on mechanical ventilation. RASS scale moderate (-3) is movement or eye opening to voice but no eye contact. Patient Monitoring Once the patient has demonstrated a response to the naloxone, continue to monitor respiratory rate, depth, oxygen saturation and end-tidal CO2 (if available) every 15 minutes x 2, then every 30 minutes x 2, then every 1 hour x 1 after each naloxone dose. Consider transfer to ICU if patient respiratory parameters have not improved after 4 naloxone doses. naloxone (NARCAN) injection 0.4 mg 0.4 mg, Intravenous, EVERY 2 MIN PRN, opioid reversal, Starting on 02/22/24 at 1807, Administer intravenous route when available and notify provider when administered. For unintended sedation or respiratory depression if all of the below criteria are met: ~ respiratory rate LESS than or EQUAL to 8. ~ SaO2 less than 92% and or/end-tidal CO2 is greater than 50. ~ the patient is receiving an opioid, has unintended sedation assessed as RASS (-4) or (-5) and patient is currently not on mechanical ventilation. RASS scale (-4) is deep sedation with no response to voice but movement or eye opening to physical stimulation. RASS scale (-5) is unarousable. Patient Monitoring Once the patient has demonstrated a response to the naloxone, continue to monitor respiratory rate, depth, oxygen saturation and end-tidal CO2 (if available) every 15 minutes x 2, then every 30 minutes x 2, then every 1 hour x 1 after each naloxone dose. Consider transfer to ICU if patient respiratory parameters have not improved after 4 naloxone doses. naloxone (NARCAN) injection 0.4 mg 0.4 mg, Intramuscular, EVERY 2 MIN PRN, opioid reversal, Starting on 02/22/24 at 1807, Administer intramuscular if an intravenous route is not available and notify provider when administered. For unintended sedation or respiratory depression if all of the below criteria are met: ~ respiratory rate LESS than or EQUAL to 8. ~ SaO2 less than 92% and or/end-tidal CO2 is greater than 50. ~ the patient is receiving an opioid, has unintended sedation assessed as RASS (-4) or (-5) and patient is currently not on mechanical ventilation. RASS scale (-4) is deep sedation with no response to voice but movement or eye opening to physical stimulation. RASS scale (-5) is unarousable. Patient Monitoring Once the patient has demonstrated a response to the naloxone, continue to monitor respiratory rate, depth, oxygen saturation and end-tidal CO2 (if available) every 15 minutes x 2, then every 30 minutes x 2, then every 1 hour x 1 after each naloxone dose. Consider transfer to ICU if patient respiratory parameters have not improved after 4 naloxone doses. naratriptan (AMERGE) tablet 2.5 mg 2.5 mg, Oral, ONCE PRN, migraine, Starting on 02/23/24 at 1934, For 1 dose $Given 02/23/2024 8:39 PM CDT 2.5 mg ondansetron (ZOFRAN ODT) ODT tab 4 mg 4 mg, Oral, EVERY 6 HOURS PRN, nausea, vomiting, Starting on 02/22/24 at 1754, This is Step 1 of nausea and vomiting management. If nausea not resolved in 15 minutes, go to Step 2 prochlorperazine (COMPAZINE). With dry hands, peel back foil backing and gently remove tablet. Do not push oral disintegrating tablet through foil backing. Administer immediately on tongue and oral disintegrating tablet dissolves in seconds, then swallow with saliva. Liquid not required. ondansetron (ZOFRAN) injection 4 mg 4 mg, Intravenous, ONCE, Administer over 2-5 Minutes, On 02/22/24 at 1345, For 1 dose, Irritant. $Given 02/22/2024 1:51 PM CDT 4 mg ondansetron (ZOFRAN) injection 4 mg 4 mg, Intravenous, EVERY 6 HOURS PRN, nausea, vomiting, Administer over 2-5 Minutes, Starting on 02/22/24 at 1754, Give IF patient unable to tolerate oral medication. This is Step 1 of nausea and vomiting management. If nausea not resolved in 15 minutes, go to Step 2 prochlorperazine (COMPAZINE). Irritant. oxyCODONE (ROXICODONE) tablet 5 mg 5 mg, Oral, EVERY 6 HOURS PRN, severe pain, Starting on 02/22/24 at 1754 $Given 02/23/2024 1:35 PM CDT 5 mg $Given 02/23/2024 6:51 AM CDT 5 mg $Given 02/23/2024 12:10 AM CDT 5 mg piperacillin-tazobactam (ZOSYN) 3.375 g vial to attach to NS 100 mL bag Routine, 3.375 g, Intravenous, EVERY 8 HOURS, First dose on 02/22/24 at 2300, Lactated Ringer's solution is not compatible with piperacillin-tazobactam for injection., Indications: possible post op sinus infection $New Bag 02/25/2024 8:52 AM CDT 3.375 g $New Bag 02/25/2024 1:19 AM CDT 3.375 g $New Bag 02/24/2024 4:33 PM CDT 3.375 g polyethylene glycol (MIRALAX) Packet 17 g 17 g, Oral, DAILY, First dose on 02/24/24 at 1030, 1 Packet = 17 grams. Mix each gram with at least 1/2 ounce (15 mL) of water - 8 ounces for 17 g dose, 4 ounces for 8.5 g dose, 2 ounces for 4 g dose. Follow with the same volume of water. Hold for loose stools unless being administered as part of a bowel prep regimen or bowel clean out. $Given 02/24/2024 11:26 AM CDT 17 g potassium chloride 10 mEq in 100 mL sterile water infusion 10 mEq, Intravenous, Administer over 60 Minutes, at 100 mL/hr, ONCE, On 02/22/24 at 1505, For 1 dose $New Bag 02/22/2024 4:01 PM CDT 10 mEq 100 mL/hr prochlorperazine (COMPAZINE) injection 10 mg 10 mg, Intravenous, EVERY 6 HOURS PRN, nausea, vomiting, Administer over 1-2 Minutes, Starting on 02/22/24 at 1755, Give IF patient unable to tolerate oral medication. This is Step 2 of nausea and vomiting management. Give if nausea not resolved 15 minutes after giving ondansetron (ZOFRAN). If nausea not resolved in 15-30 minutes, Notify provider. prochlorperazine (COMPAZINE) suppository 25 mg 25 mg, Rectal, EVERY 12 HOURS PRN, nausea, vomiting, Starting on 02/22/24 at 1755, This is Step 2 of nausea and vomiting management. Give if nausea not resolved 15 minutes after giving ondansetron (ZOFRAN). If nausea not resolved in 15-30 minutes, Notify provider. prochlorperazine (COMPAZINE) tablet 10 mg 10 mg, Oral, EVERY 6 HOURS PRN, vomiting, Starting on 02/22/24 at 1755, This is Step 2 of nausea and vomiting management. Give if nausea not resolved 15 minutes after giving ondansetron (ZOFRAN). If nausea not resolved in 15-30 minutes, Notify provider. scopolamine (TRANSDERM) 72 hr patch 1 patch 1 patch, Transdermal, EVERY 72 HOURS, Administer over 72 Hours, First dose on 02/22/24 at 2030, Apply patch to skin, behind ear. Remove every 72 hours. DO NOT CUT PATCH. If dose is for a half or quarter patch, RN to remove only half or quarter of the backing. Each 1.5 mg patch delivers 1 mg of scopolamine. Reminder: Remove previous patch before applying new patch. $Patch/Med Applied 02/22/2024 9:02 PM CDT 1 patch Behind Right Ear scopolamine (TRANSDERM-SCOP) Patch in Place First dose on 02/22/24 at 2030, Chart every shift, confirming that patch is still in place on patient (no barcode scan needed). See patch order for dose information. senna-docusate (SENOKOT-S/PERICOLACE) 8.6-50 MG per tablet 2 tablet 2 tablet, Oral, 2 TIMES DAILY PRN, constipation, Starting on Sat02/22/24 at 1754, IF more than 1 constipation PRN medication is ordered, administer step-boston as indicated, moving to the next step ONLY if prior step ineffective. Step 1: senna-docusate (SENOKOT-S; PERICOLACE) OR bisacodyl (DULCOLAX) EC tablet Step 2: polyethylene glycol (MIRALAX/GLYCOLAX) Step 3: bisacodyl (DULCOLAX) suppository Step 4: enema Hold for loose stools. $Given 02/24/2024 8:01 AM CDT 2 tablets senna-docusate (SENOKOT-S/PERICOLACE) 8.6-50 MG per tablet 2 tablet 2 tablet, Oral, 2 TIMES DAILY, First dose (after last modification) on Sat02/24/24 at 1030, IF more than 1 constipation PRN medication is ordered, administer step-boston as indicated, moving to the next step ONLY if prior step ineffective. Step 1: senna-docusate (SENOKOT-S; PERICOLACE) OR bisacodyl (DULCOLAX) EC tablet Step 2: polyethylene glycol (MIRALAX/GLYCOLAX) Step 3: bisacodyl (DULCOLAX) suppository Step 4: enema Hold for loose stools. $Given 02/24/2024 7:05 PM CDT 2 tablets sodium chloride (OCEAN) 0.65 % nasal spray 3-4 spray 3-4 spray, Both Nostrils, 4 TIMES DAILY, First dose on Sat02/25/24 at 1600 sodium chloride (PF) 0.9% PF flush 3 mL 3 mL, Intracatheter, EVERY 8 HOURS, First dose on Sat02/22/24 at 2230, to lock peripheral IV dormant line $Given 02/22/2024 10:53 PM CDT 3 mLs sodium chloride 0.9 % infusion at 75 mL/hr, Intravenous, CONTINUOUS, Starting on Sat02/22/24 at 1800, Until Sat02/24/24 at 2219 Rate/Dose Change 02/23/2024 11:14 PM CDT 75 mL/hr $New Bag 02/23/2024 10:42 PM CDT 100 mL/hr $02/23/2024 12:15 PM CDT 100 mL/hr sodium chloride 0.9% BOLUS 1,000 mL Intravenous, 1,000 mL, ONCE, at 1,000 mL/hr, Administer over 1 Hours, On 02/22/24 at 1345, For 1 dose $02/22/2024 1:51 PM CDT 1,000 mLs 1000 mL/hr sodium chloride 0.9% BOLUS 1,000 mL Intravenous, 1,000 mL, ONCE, at 1,000 mL/hr, Administer over 1 Hours, On 02/22/24 at 1630, For 1 dose $02/22/2024 4:29 PM CDT 1,000 mLs 1000 mL/hr sodium chloride 0.9% BOLUS 1,000 mL Intravenous, 1,000 mL, ONCE, at 500 mL/hr, Administer over 2 Hours, On 02/22/24 at 1900, For 1 dose $02/22/2024 7:09 PM CDT 1,000 mLs 500 mL/hr sodium chloride 0.9% BOLUS 1,000 mL Intravenous, 1,000 mL, ONCE, at 500 mL/hr, Administer over 2 Hours, On 02/22/24 at 2230, For 1 dose $02/23/2024 12:10 AM CDT 1,000 mLs 500 mL/hr SUMAtriptan (IMITREX) tablet 25 mg 25 mg, Oral, ONCE, On 02/22/24 at 2000, For 1 dose, May repeat dose in 2 hours if no relief. Do not exceed 2 doses in 24 hours. $Given 02/22/2024 7:29 PM CDT 25 mg tiZANidine (ZANAFLEX) tablet 2-4 mg 2-4 mg, Oral, 3 TIMES DAILY, First dose on 02/23/24 at 2000 $Given 02/23/2024 8:39 PM CDT 4 mg documented in this encounter Active and Recently Administered Medications Times are shown in CDT. Scheduled Medication Order 02/23/2024 02/24/2024 02/25/2024 atenolol (TENORMIN) tablet 25 mg 25 mg, Oral, DAILY, First dose on Sat02/23/24 at 0800, Hold for HR < 65 0754 (Not Given - Provider: Natalie Wynne RN - Reason: Order parameters not met) 0758 (Not Given - Provider: Daisy Olmos RN - Reason: Patient/family refused) 0827 (Not Given - Provider: Daisy Olmos, BERENICE - Reason: Patient/family refused) famotidine (PEPCID) tablet 10 mg 10 mg, Oral, DAILY, First dose on Sat02/24/24 at 1030 1117 ($Given - Provider: Maria Luisa Todd RN) 0830 ($Given - Provider: Daisy Olmos RN) fluticasone-vilanterol (BREO ELLIPTA) 100-25 MCG/ACT inhaler 1 puff (CANCELED) 1 puff, Inhalation, DAILY, First dose on Sat02/23/24 at 0900, This therapy was substituted for Fluticasone salmeterol (ADVAIR DISKUS) 250/50 mcg inhaler 1-2 puffs Daily or BID. Check the dose counter on the inhaler to ensure there are doses remaining before administering. 1040 ($Given - Provider: Natalie Wynne RN) 0801 ($Given - Provider: Daisy Olmos RN) fluticasone-vilanterol (BREO ELLIPTA) 100-25 MCG/ACT inhaler 1 puff 1 puff, Inhalation, 2 TIMES DAILY, First dose (after last modification) on Sat02/24/24 at 2200, This therapy was substituted for Fluticasone salmeterol (ADVAIR DISKUS) 250/50 mcg inhaler 1-2 puffs Daily or BID. Check the dose counter on the inhaler to ensure there are doses remaining before administering. 2147 ($Given - Provider: Lana Uribe RN) 0830 ($Given - Provider: Daisy Olmos RN) furosemide (LASIX) injection 40 mg (COMPLETED) 40 mg, Intravenous, ONCE, Administer over 1-3 Minutes, On Sat02/24/24 at 1100, For 1 dose 1127 ($Given - Provider: Maria Luisa Todd RN) ibuprofen (ADVIL/MOTRIN) tablet 800 mg 800 mg, Oral, EVERY 6 HOURS, First dose on Sat02/24/24 at 1000, Give with food. 1312 ($Given - Provider: Maria Luisa Todd RN)1905 ($Given - Provider: Lana Uribe, BERENICE) 0119 ($Given - Provider: Zee Hills RN)0830 ($Given - Provider: Daisy Olmos RN)1358 ($Given - Provider: Daisy Olmos RN) levofloxacin (LEVAQUIN) tablet 500 mg Routine, 500 mg, Oral, DAILY, First dose on Sat02/25/24 at 1400, Administer at least 2 hours before or 4 hours after aluminum, calcium, iron, zinc or magnesium containing medications. May be taken with food or on an empty stomach. Do not administer alone with a dairy product like milk or yogurt or calcium-fortified juice, but may be administered with a meal containing dairy. Hold tube feeding 1 hour before and 1 hour after administration, Indications: Bacteremia 1358 ($Given - Provider: Daisy Olmos RN) lidocaine (XYLOCAINE) 5 % ointment Topical, 4 TIMES DAILY, First dose on Sat02/25/24 at 1200, Apply to neck, back, SI joint 1350 ($Given - Provider: Daisy Olmos RN - Comment: patient preference.)1600 (Canceled Entry - Provider: Orders Generic Provider - Comment: Automatically canceled at discontinue of medication order) magnesium oxide (MAG-OX) half-tab 600 mg (CANCELED) 600 mg, Oral, AT BEDTIME, First dose on Sat02/23/24 at 2300 2310 ($Given - Provider: Monae Lacy RN) 2122 ($Given - Provider: Lana Uribe RN) metoclopramide (REGLAN) injection 10 mg 10 mg, Intravenous, Administer over 2 Minutes, EVERY 6 HOURS, First dose on Sat02/22/24 at 2000, Avoid use if patient has full bowel obstruction or perforation. Irritant. 0148 ($Given - Provider: Monae Lacy RN)0838 ($Given - Provider: Natalie A Sherrell, RN)1535 ($Given - Provider: Natalie Wynne RN)2040 ($Given - Provider: Monae Lacy, BERENICE) 0207 ($Given - Provider: Monae Lacy RN)1004 (Not Given - Provider: Daisy Olmos, BERENICE - Reason: Patient/family refused)1313 (Not Given - Provider: Maria Luisa Todd RN - Reason: Patient/family refused)1905 ($Given - Provider: Lana Uribe RN) 0119 ($Given - Provider: Zee Hills, BERENICE)0830 ($Given - Provider: Daisy Olmos, RN)1357 (Not Given - Provider: Daisy Olmos, BERENICE - Reason: Patient/family refused) piperacillin-tazobacta m (ZOSYN) 3.375 g vial to attach to NS 100 mL bag (CANCELED) Routine, 3.375 g, Intravenous, EVERY 8 HOURS, First dose on 02/22/24 at 2300, Lactated Ringer's solution is not compatible with piperacillin-tazobacta m for injection., Indications: possible post op sinus infection 0650 ($New Bag - Provider: Monae Lacy RN)1536 ($New Bag - Provider: Natalie Wynne RN)2310 ($New Bag - Provider: Monae Lacy RN) 0657 ($New Bag - Provider: Monae Lacy, BERENICE)1633 ($New Bag - Provider: Lana Uribe RN) 0119 ($New Bag - Provider: Zee Hills, BERENICE)0852 ($New Bag - Provider: Daisy Olmos, BERENICE) polyethylene glycol (MIRALAX) Packet 17 g 17 g, Oral, DAILY, First dose on 02/24/24 at 1030, 1 Packet = 17 grams. Mix each gram with at least 1/2 ounce (15 mL) of water - 8 ounces for 17 g dose, 4 ounces for 8.5 g dose, 2 ounces for 4 g dose. Follow with the same volume of water. Hold for loose stools unless being administered as part of a bowel prep regimen or bowel clean out. 1126 ($Given - Provider: Maria Luisa Todd, RN) 0829 (Not Given - Provider: Daisy Olmos, RN - Reason: Patient/family refused) scopolamine (TRANSDERM) 72 hr patch 1 patch(Linked Group 1) 1 patch, Transdermal, EVERY 72 HOURS, Administer over 72 Hours, First dose on 02/22/24 at 2030, Apply patch to skin, behind ear. Remove every 72 hours. DO NOT CUT PATCH. If dose is for a half or quarter patch, RN to remove only half or quarter of the backing. Each 1.5 mg patch delivers 1 mg of scopolamine. Reminder: Remove previous patch before applying new patch. 1410 (Due: Patch/Med Removed - Provider: Orders Generic Provider - Comment: Time automatically adjusted from order being discontinued) scopolamine (TRANSDERM-SCOP) Patch in Place(Linked Group 1) First dose on 02/22/24 at 2030, Chart every shift, confirming that patch is still in place on patient (no barcode scan needed). See patch order for dose information. 0445 (Patch in Place - Provider: Monae Lacy, BERENICE)1230 (Patch in Place - Provider: Natalie Wynne, BERENICE)2049 (Patch in Place - Provider: Monae Lacy RN) 040 (Patch in Place - Provider: Monae Lacy, BERENICE)1227 (Patch in Place - Provider: Maria Luisa Todd, RN)2013 (Patch in Place - Provider: Lana Uribe RN) 0539 (Patch in Place - Provider: Zee Hills, BERENICE)1218 (Patch in Place - Provider: Daisy Olmos, RN) senna-docusate (SENOKOT-S/PERICOLACE) 8.6-50 MG per tablet 2 tablet(Linked Group 2) 2 tablet, Oral, 2 TIMES DAILY, First dose (after last modification) on Sat02/24/24 at 1030, IF more than 1 constipation PRN medication is ordered, administer step-b[place] as indicated, moving to the next step ONLY if prior step ineffective. Step 1: senna-docusate (SENOKOT-S; PERICOLACE) OR bisacodyl (DULCOLAX) EC tablet Step 2: polyethylene glycol (MIRALAX/GLYCOLAX) Step 3: bisacodyl (DULCOLAX) suppository Step 4: enema Hold for loose stools. 1112 (Not Given - Provider: Maria Luisa Todd RN - Reason: Other - Comment: already given)1905 ($Given - Provider: Lana Uribe RN) 0830 (Not Given - Provider: Daisy Olmos, BERENICE - Reason: Patient/family refused) sodium chloride (OCEAN) 0.65 % nasal spray 3-4 spray 3-4 spray, Both Nostrils, 4 TIMES DAILY, First dose on Sat02/25/24 at 1600 1600 (Canceled Entry - Provider: Orders Generic Provider - Comment: Automatically canceled at discontinue of medication order) sodium chloride 0.9% BOLUS 1,000 mL (COMPLETED) Intravenous, 1,000 mL, ONCE, at 500 mL/hr, Administer over 2 Hours, On 02/22/24 at 2230, For 1 dose 0010 ($New Bag - Provider: Monae Lacy RN)0659 (Stopped - Provider: Natalie Wynne, BERENICE) tiZANidine (ZANAFLEX) tablet 2-4 mg (CANCELED) 2-4 mg, Oral, 3 TIMES DAILY, First dose on Sat02/23/24 at 2000 2039 ($Given - Provider: Monae Lacy RN) 0758 (Not Given - Provider: Daisy Olmos, BERENICE - Reason: Patient/family refused) Continuous Medication Order 02/23/2024 02/24/2024 02/25/2024 sodium chloride 0.9 % infusion (CANCELED) at 75 mL/hr, Intravenous, CONTINUOUS, Starting on 02/22/24 at 1800, Until Sat02/24/24 at 2219 0248 ($New Bag - Provider: Monae Lacy RN)1215 ($New Bag - Provider: Natalie Wynne, BERENICE)2242 ($New Bag - Provider: Monae Lacy RN)2314 (Rate/Dose Change - Provider: Monae Lacy RN) 0943 (Stopped - Provider: Daisy Olmos RN) PRN Medication Order 02/23/2024 02/24/2024 02/25/2024 albuterol (PROVENTIL HFA/VENTOLIN HFA) inhaler 2 puff, Inhalation, EVERY 6 HOURS PRN, shortness of breath, wheezing, cough, Starting on 02/23/24 at 0818, Check the dose counter on the inhaler to ensure there are doses remaining before administering. Prime by spraying into the air 4 times prior to first use and if not used within 2 weeks. 1136 ($Given - Provider: Natalie Wynne RN) 0231 ($Given - Provider: Monae Lacy RN) cyclobenzaprine (FLEXERIL) tablet 10 mg (CANCELED) 10 mg, Oral, 3 TIMES DAILY PRN, muscle spasms, Starting on 02/22/24 at 1753 0649 ($Given - Provider: Monae Lacy RN)1613 ($Given - Provider: Natalie Wynne RN) cyclobenzaprine (FLEXERIL) tablet 10 mg 10 mg, Oral, EVERY 8 HOURS PRN, muscle spasms, Starting on 02/24/24 at 0951, Hold sedation, confusion 1420 ($Given - Provider: Maria Luisa Todd RN) diphenhydrAMINE (BENADRYL) capsule 25 mg(Linked Group 3) 25 mg, Oral, EVERY 6 HOURS PRN, itching, Starting on 02/23/24 at 1937 2038 (See Alternative - Provider: Monae Lacy RN) diphenhydrAMINE (BENADRYL) injection 25 mg (CANCELED)(Linked Group 3) 25 mg, Intravenous, EVERY 6 HOURS PRN, itching, other, headache, Starting on 02/23/24 at 1937 2038 ($Given - Provider: Monae Lacy RN) HYDROmorphone (DILAUDID) injection 0.4 mg (CANCELED) 0.4 mg, Intravenous, EVERY 2 HOURS PRN, severe pain, Starting on 02/23/24 at 2250 2310 ($Given - Provider: Monae Lacy RN) HYDROmorphone (DILAUDID) tablet 2 mg 2 mg, Oral, EVERY 3 HOURS PRN, other, severe pain, must try oral medications first -, Starting on 02/24/24 at 0955, 1 hour apart from any other sedative Hold for RASS<-2 Hold for SBP <90 Hold for sedation Hold for RR<12 Hold for SpO2<90% ibuprofen (ADVIL/MOTRIN) tablet 600 mg (CANCELED) 600 mg, Oral, EVERY 6 HOURS PRN, inflammatory pain, fever, mild pain, Starting on 02/22/24 at 1753, Give with food. 0451 ($Given - Provider: Monae Lacy RN)1043 ($Given - Provider: Natalie Wynne, BERENICE)1636 ($Given - Provider: Natalie Wynne, BERENICE) 0706 ($Given - Provider: Monae Lacy RN) ketorolac (TORADOL) injection 30 mg (CANCELED) 30 mg, Intravenous, EVERY 6 HOURS PRN, inflammatory pain, Starting on 02/23/24 at 1936, For 5 days, Can cause pain on injection. If ordered intravenously (IV) : administer through a running maintenance fluid over 1 minute followed by a flush. If patient complains of pain on injection, may dilute 15-30 mg in 5 mL and push over 1 to 2 minutes. 0207 ($Given - Provider: Monae Lacy RN) naloxone (NARCAN) injection 0.2 mg(Linked Group 4) 0.2 mg, Intravenous, EVERY 2 MIN PRN, opioid reversal, Starting on 02/22/24 at 1807, Administer intravenous route when available and notify provider when administered. For unintended sedation or respiratory depression if all of the below criteria are met: ~ respiratory rate LESS than or EQUAL to 8. ~SaO2 less than 92% and or/end-tidal CO2 is greater than 50. ~ the patient is receiving an opioid, has unintended sedations assessed as RASS (-3), and is currently not on mechanical ventilation. RASS scale moderate (-3) is movement or eye opening to voice but no eye contact. Patient Monitoring Once the patient has demonstrated a response to the naloxone, continue to monitor respiratory rate, depth, oxygen saturation and end-tidal CO2 (if available) every 15 minutes x 2, then every 30 minutes x 2, then every 1 hour x 1 after each naloxone dose. Consider transfer to ICU if patient respiratory parameters have not improved after 4 naloxone doses. naloxone (NARCAN) injection 0.2 mg(Linked Group 4) 0.2 mg, Intramuscular, EVERY 2 MIN PRN, opioid reversal, Starting on 02/22/24 at 1807, Administer intramuscular if an intravenous route is not available and notify provider when administered. For unintended sedation or respiratory depression if all of the below criteria are met: ~ respiratory rate LESS than or EQUAL to 8. ~SaO2 less than 92% and or/end-tidal CO2 is greater than 50. ~ the patient is receiving an opioid, has unintended sedations assessed as RASS (-3), and is currently not on mechanical ventilation. RASS scale moderate (-3) is movement or eye opening to voice but no eye contact. Patient Monitoring Once the patient has demonstrated a response to the naloxone, continue to monitor respiratory rate, depth, oxygen saturation and end-tidal CO2 (if available) every 15 minutes x 2, then every 30 minutes x 2, then every 1 hour x 1 after each naloxone dose. Consider transfer to ICU if patient respiratory parameters have not improved after 4 naloxone doses. naloxone (NARCAN) injection 0.4 mg(Linked Group 4) 0.4 mg, Intravenous, EVERY 2 MIN PRN, opioid reversal, Starting on 02/22/24 at 1807, Administer intravenous route when available and notify provider when administered. For unintended sedation or respiratory depression if all of the below criteria are met: ~ respiratory rate LESS than or EQUAL to 8. ~ SaO2 less than 92% and or/end-tidal CO2 is greater than 50. ~ the patient is receiving an opioid, has unintended sedation assessed as RASS (-4) or (-5) and patient is currently not on mechanical ventilation. RASS scale (-4) is deep sedation with no response to voice but movement or eye opening to physical stimulation. RASS scale (-5) is unarousable. Patient Monitoring Once the patient has demonstrated a response to the naloxone, continue to monitor respiratory rate, depth, oxygen saturation and end-tidal CO2 (if available) every 15 minutes x 2, then every 30 minutes x 2, then every 1 hour x 1 after each naloxone dose. Consider transfer to ICU if patient respiratory parameters have not improved after 4 naloxone doses. naloxone (NARCAN) injection 0.4 mg(Linked Group 4) 0.4 mg, Intramuscular, EVERY 2 MIN PRN, opioid reversal, Starting on 02/22/24 at 1807, Administer intramuscular if an intravenous route is not available and notify provider when administered. For unintended sedation or respiratory depression if all of the below criteria are met: ~ respiratory rate LESS than or EQUAL to 8. ~ SaO2 less than 92% and or/end-tidal CO2 is greater than 50. ~ the patient is receiving an opioid, has unintended sedation assessed as RASS (-4) or (-5) and patient is currently not on mechanical ventilation. RASS scale (-4) is deep sedation with no response to voice but movement or eye opening to physical stimulation. RASS scale (-5) is unarousable. Patient Monitoring Once the patient has demonstrated a response to the naloxone, continue to monitor respiratory rate, depth, oxygen saturation and end-tidal CO2 (if available) every 15 minutes x 2, then every 30 minutes x 2, then every 1 hour x 1 after each naloxone dose. Consider transfer to ICU if patient respiratory parameters have not improved after 4 naloxone doses. naratriptan (AMERGE) tablet 2.5 mg (COMPLETED) 2.5 mg, Oral, ONCE PRN, migraine, Starting on 02/23/24 at 1934, For 1 dose 2038 ($Given - Provider: Monae Lacy RN) ondansetron (ZOFRAN ODT) ODT tab 4 mg(Linked Group 5) 4 mg, Oral, EVERY 6 HOURS PRN, nausea, vomiting, Starting on 02/22/24 at 1754, This is Step 1 of nausea and vomiting management. If nausea not resolved in 15 minutes, go to Step 2 prochlorperazine (COMPAZINE). With dry hands, peel back foil backing and gently remove tablet. Do not push oral disintegrating tablet through foil backing. Administer immediately on tongue and oral disintegrating tablet dissolves in seconds, then swallow with saliva. Liquid not required. ondansetron (ZOFRAN) injection 4 mg(Linked Group 5) 4 mg, Intravenous, EVERY 6 HOURS PRN, nausea, vomiting, Administer over 2-5 Minutes, Starting on 02/22/24 at 1754, Give IF patient unable to tolerate oral medication. This is Step 1 of nausea and vomiting management. If nausea not resolved in 15 minutes, go to Step 2 prochlorperazine (COMPAZINE). Irritant. oxyCODONE (ROXICODONE) tablet 5 mg (CANCELED) 5 mg, Oral, EVERY 6 HOURS PRN, severe pain, Starting on 02/22/24 at 1754 0010 ($Given - Provider: Monae Lacy RN)0651 ($Given - Provider: Monae Lacy RN)1335 ($Given - Provider: Natalie Wynne RN)2006 (Not Given - Provider: Natalie Wynne RN - Reason: Patient/family refused) prochlorperazine (COMPAZINE) injection 10 mg(Linked Group 6) 10 mg, Intravenous, EVERY 6 HOURS PRN, nausea, vomiting, Administer over 1-2 Minutes, Starting on 02/22/24 at 1755, Give IF patient unable to tolerate oral medication. This is Step 2 of nausea and vomiting management. Give if nausea not resolved 15 minutes after giving ondansetron (ZOFRAN). If nausea not resolved in 15-30 minutes, Notify provider. prochlorperazine (COMPAZINE) suppository 25 mg(Linked Group 6) 25 mg, Rectal, EVERY 12 HOURS PRN, nausea, vomiting, Starting on 02/22/24 at 1755, This is Step 2 of nausea and vomiting management. Give if nausea not resolved 15 minutes after giving ondansetron (ZOFRAN). If nausea not resolved in 15-30 minutes, Notify provider. prochlorperazine (COMPAZINE) tablet 10 mg(Linked Group 6) 10 mg, Oral, EVERY 6 HOURS PRN, vomiting, Starting on 02/22/24 at 1755, This is Step 2 of nausea and vomiting management. Give if nausea not resolved 15 minutes after giving ondansetron (ZOFRAN). If nausea not resolved in 15-30 minutes, Notify provider. senna-docusate (SENOKOT-S/PERICOLACE) 8.6-50 MG per tablet 2 tablet (CANCELED) 2 tablet, Oral, 2 TIMES DAILY PRN, constipation, Starting on 02/22/24 at 1754, IF more than 1 constipation PRN medication is ordered, administer step-[place] as indicated, moving to the next step ONLY if prior step ineffective. Step 1: senna-docusate (SENOKOT-S; PERICOLACE) OR bisacodyl (DULCOLAX) EC tablet Step 2: polyethylene glycol (MIRALAX/GLYCOLAX) Step 3: bisacodyl (DULCOLAX) suppository Step 4: enema Hold for loose stools. 0801 ($Given - Provider: Daisy Olmos RN) Linked Groups Order Group 1: scopolamine (TRANSDERM) 72 hr patch 1 patchJump to med 1 patch, Transdermal, EVERY 72 HOURS, Administer over 72 Hours, First dose on 02/22/24 at 2030, Apply patch to skin, behind ear. Remove every 72 hours. DO NOT CUT PATCH. If dose is for a half or quarter patch, RN to remove only half or quarter of the backing. Each 1.5 mg patch delivers 1 mg of scopolamine. Reminder: Remove previous patch before applying new patch. And scopolamine (TRANSDERM-SCOP) Patch in PlaceJump to med First dose on 02/22/24 at 2030, Chart every shift, confirming that patch is still in place on patient (no barcode scan needed). See patch order for dose information. Group 2: senna-docusate (SENOKOT-S/PERICOLACE) 8.6-50 MG per tablet 2 tabletJump to med 2 tablet, Oral, 2 TIMES DAILY, First dose (after last modification) on 02/24/24 at 1030, IF more than 1 constipation PRN medication is ordered, administer step- [place] as indicated, moving to the next step ONLY if prior step ineffective. Step 1: senna-docusate (SENOKOT-S; PERICOLACE) OR bisacodyl (DULCOLAX) EC tablet Step 2: polyethylene glycol (MIRALAX/GLYCOLAX) Step 3: bisacodyl (DULCOLAX) suppository Step 4: enema Hold for loose stools. Group 3: diphenhydrAMINE (BENADRYL) capsule 25 mgJump to med 25 mg, Oral, EVERY 6 HOURS PRN, itching, Starting on 02/23/24 at 1938 Or diphenhydrAMINE (BENADRYL) injection 25 mg (CANCELED)Jump to med 25 mg, Intravenous, EVERY 6 HOURS PRN, itching, other, headache, Starting on 02/23/24 at 1938 Group 4: naloxone (NARCAN) injection 0.2 mgJump to med 0.2 mg, Intravenous, EVERY 2 MIN PRN, opioid reversal, Starting on 02/22/24 at 1807, Administer intravenous route when available and notify provider when administered. For unintended sedation or respiratory depression if all of the below criteria are met: ~ respiratory rate LESS than or EQUAL to 8. ~SaO2 less than 92% and or/end-tidal CO2 is greater than 50. ~ the patient is receiving an opioid, has unintended sedations assessed as RASS (-3), and is currently not on mechanical ventilation. RASS scale moderate (-3) is movement or eye opening to voice but no eye contact. Patient Monitoring Once the patient has demonstrated a response to the naloxone, continue to monitor respiratory rate, depth, oxygen saturation and end-tidal CO2 (if available) every 15 minutes x 2, then every 30 minutes x 2, then every 1 hour x 1 after each naloxone dose. Consider transfer to ICU if patient respiratory parameters have not improved after 4 naloxone doses. Or naloxone (NARCAN) injection 0.4 mgJump to med 0.4 mg, Intravenous, EVERY 2 MIN PRN, opioid reversal, Starting on 02/22/24 at 1807, Administer intravenous route when available and notify provider when administered. For unintended sedation or respiratory depression if all of the below criteria are met: ~ respiratory rate LESS than or EQUAL to 8. ~ SaO2 less than 92% and or/end-tidal CO2 is greater than 50. ~ the patient is receiving an opioid, has unintended sedation assessed as RASS (-4) or (-5) and patient is currently not on mechanical ventilation. RASS scale (-4) is deep sedation with no response to voice but movement or eye opening to physical stimulation. RASS scale (-5) is unarousable. Patient Monitoring Once the patient has demonstrated a response to the naloxone, continue to monitor respiratory rate, depth, oxygen saturation and end-tidal CO2 (if available) every 15 minutes x 2, then every 30 minutes x 2, then every 1 hour x 1 after each naloxone dose. Consider transfer to ICU if patient respiratory parameters have not improved after 4 naloxone doses. Or naloxone (NARCAN) injection 0.2 mgJump to med 0.2 mg, Intramuscular, EVERY 2 MIN PRN, opioid reversal, Starting on 02/22/24 at 1807, Administer intramuscular if an intravenous route is not available and notify provider when administered. For unintended sedation or respiratory depression if all of the below criteria are met: ~ respiratory rate LESS than or EQUAL to 8. ~SaO2 less than 92% and or/end-tidal CO2 is greater than 50. ~ the patient is receiving an opioid, has unintended sedations assessed as RASS (-3), and is currently not on mechanical ventilation. RASS scale moderate (-3) is movement or eye opening to voice but no eye contact. Patient Monitoring Once the patient has demonstrated a response to the naloxone, continue to monitor respiratory rate, depth, oxygen saturation and end-tidal CO2 (if available) every 15 minutes x 2, then every 30 minutes x 2, then every 1 hour x 1 after each naloxone dose. Consider transfer to ICU if patient respiratory parameters have not improved after 4 naloxone doses. Or naloxone (NARCAN) injection 0.4 mgJump to med 0.4 mg, Intramuscular, EVERY 2 MIN PRN, opioid reversal, Starting on 02/22/24 at 1807, Administer intramuscular if an intravenous route is not available and notify provider when administered. For unintended sedation or respiratory depression if all of the below criteria are met: ~ respiratory rate LESS than or EQUAL to 8. ~ SaO2 less than 92% and or/end-tidal CO2 is greater than 50. ~ the patient is receiving an opioid, has unintended sedation assessed as RASS (-4) or (-5) and patient is currently not on mechanical ventilation. RASS scale (-4) is deep sedation with no response to voice but movement or eye opening to physical stimulation. RASS scale (-5) is unarousable. Patient Monitoring Once the patient has demonstrated a response to the naloxone, continue to monitor respiratory rate, depth, oxygen saturation and end-tidal CO2 (if available) every 15 minutes x 2, then every 30 minutes x 2, then every 1 hour x 1 after each naloxone dose. Consider transfer to ICU if patient respiratory parameters have not improved after 4 naloxone doses. Group 5: ondansetron (ZOFRAN ODT) ODT tab 4 mgJump to med 4 mg, Oral, EVERY 6 HOURS PRN, nausea, vomiting, Starting on 02/22/24 at 1754, This is Step 1 of nausea and vomiting management. If nausea not resolved in 15 minutes, go to Step 2 prochlorperazine (COMPAZINE). With dry hands, peel back foil backing and gently remove tablet. Do not push oral disintegrating tablet through foil backing. Administer immediately on tongue and oral disintegrating tablet dissolves in seconds, then swallow with saliva. Liquid not required. Or ondansetron (ZOFRAN) injection 4 mgJump to med 4 mg, Intravenous, EVERY 6 HOURS PRN, nausea, vomiting, Administer over 2-5 Minutes, Starting on 02/22/24 at 1754, Give IF patient unable to tolerate oral medication. This is Step 1 of nausea and vomiting management. If nausea not resolved in 15 minutes, go to Step 2 prochlorperazine (COMPAZINE). Irritant. Group 6: prochlorperazine (COMPAZINE) injection 10 mgJump to med 10 mg, Intravenous, EVERY 6 HOURS PRN, nausea, vomiting, Administer over 1-2 Minutes, Starting on 02/22/24 at 1755, Give IF patient unable to tolerate oral medication. This is Step 2 of nausea and vomiting management. Give if nausea not resolved 15 minutes after giving ondansetron (ZOFRAN). If nausea not resolved in 15-30 minutes, Notify provider. Or prochlorperazine (COMPAZINE) tablet 10 mgJump to med 10 mg, Oral, EVERY 6 HOURS PRN, vomiting, Starting on 02/22/24 at 1755, This is Step 2 of nausea and vomiting management. Give if nausea not resolved 15 minutes after giving ondansetron (ZOFRAN). If nausea not resolved in 15-30 minutes, Notify provider. Or prochlorperazine (COMPAZINE) suppository 25 mgJump to med 25 mg, Rectal, EVERY 12 HOURS PRN, nausea, vomiting, Starting on 02/22/24 at 1755, This is Step 2 of nausea and vomiting management. Give if nausea not resolved 15 minutes after giving ondansetron (ZOFRAN). If nausea not resolved in 15-30 minutes, Notify provider. documented in this encounter Care Teams Retarder Operator Relationship Specialty Start Date End Date [facility]- [address] [place] [address] PCP - General 03/29/21 Susan Doshi MD [address], [place] [address] 03/29/21 documented as of this encounter
--- OUTSIDE RECORDS SUMMARY | 2024-03-10 10:09 | XMS_ITS | Referral Summary ---
Author Organization [facility] Address [address] [place] [address] Care Team Providers Care Home Health Provider Name Role Phone [facility]- Primary Care Provider Susan Doshi MD Unavailable Unavailable Encounters Date Type Department Care Team Description 02/22/2024 12:20 PM CDT - 02/25/2024 2:10 PM CDT Hospital Encounter [facility] Observation Dept [address] [place] [id number] Fam Rodriguez MD Abdissa, Mesfin E, MD Bacteremia (Primary Dx); Hypokalemia; Recurrent syncope; History of nasal septoplasty; Nausea Discharge Disposition: Home or Self Care 02/22/2024 Travel from Last 3 Months Allergies Active Allergy Reactions Criticality Noted Date [...] 02/22/2024 12:32 PM CDT Plan of Treatment Not on file [...] Bay MD LAB - BLOOD ORDERABL ES RH LABORATORY [facility] Acute Care Lab [address] Lab (1st floor, no room number) [place] [address], [facility] * Magnesium (02/25/2024 7:04 AM CDT) Only the most recent of4 resultswithin the time period is included. [facility] Signature Magnesium 2.0 1.7 - 2.3 mg/dL 02/25/2024 7:52 AM CDT LABORATORY Blood STRUCTURE OF LEFT UPPER LIMB / Unknown Venipuncture / Unknown 02/25/2024 7:04 AM CDT 02/25/2024 7:21 AM CDT Socrates Bay MD LAB - BLOOD ORDERABL ES LABORATORY [facility] Acute Care Lab [address] [facility] Lab (1st floor, no room number) [place] [address], [facility] * (ABNORMAL) Basic metabolic panel (02/25/2024 7:04 [...] MD LAB - BLOOD ORDERABL ES LABORATORY [facility] Lab [address] Lab (1st floor, no room number) [place] [address] * (ABNORMAL) Procalcitonin (02/24/2024 5:50 AM CDT) Only the most recent of3 resultswithin the time period is included. Procalcitonin 3.76(H) <0.50 ng/mL 02/24/2024 6:38 AM [...] See Procalcitonin Guidance document for more details. [email or web address] Factors that may affect PCT levels (not [...] Bay MD LAB - BLOOD ORDERABL ES RH LABORATORY [facility] Lab [address] [facility] Lab (1st floor, no room number) [place] [address] * (ABNORMAL) CBC with platelets (02/24/2024 5:50 [...] Bay MD LAB - BLOOD ORDERABL ES [facility] Lab [address] Lab (1st floor, no room number) [place] [phone] * Lactic acid whole blood (02/22/2024 11:47 PM CDT) Lactic Acid 0.9 0.7 - 2.0 mmol/L 02/22/2024 11:51 PM CDT RH LABORATORY Blood STRUCTURE OF LEFT HAND / Unknown Venipuncture / Unknown 02/22/2024 11:47 PM CDT 02/22/2024 11:49 PM CDT La CUMMINGS-Tori LAB - BLOOD ORDER DOT Performing Organization Address City/[facility]/ZIP Co de Phone Number [facility] Lab [address] Lab (1st floor, no room number) [place] [phone] [place] [address] * (ABNORMAL) CRP inflammation (02/22/2024 10:32 PM CDT) CRP Inflammation 42.29(H) <5.00 mg/L 02/22/2024 10:58 PM CDT RH LABORATORY Blood STRUCTURE OF LEFT UPPER LIMB / Unknown Venipuncture / Unknown 02/22/2024 10:32 PM CDT 02/22/2024 10:37 PM CDT La Castaneda PA-C LAB - BLOOD ORDER DOT [facility] Acute Care Lab [address] Lab (1st floor, no room number) [place] [address], [facility] * Blood Culture Arm, Left (02/22/2024 10:32 PM CDT) Only the most recent of4 resultswithin the time period is included. Culture No Growth 02/28/2024 1:05 AM CDT [facility] ID[facility] LABORATORY Blood STRUCTURE OF LEFT UPPER LIMB / Unknown Venipuncture / Unknown 02/22/2024 10:32 PM CDT 02/22/2024 10:37 PM CDT La Castaneda PA-C LAB - MICRO GENER AL ORDERABLES [facility] LABORATORY [facility] Inf. Diseases Diag. Lab [address] [place] [address] * (ABNORMAL) Lactic Acid Whole Blood w/ 1x repeat in 2 hrs when >2 (02/22/2024 10:02 PM CDT) Pathologist [facility] Lactic Acid, Initial 2.4(H) 0.7 - 2.0 mmol/L 02/22/2024 10:07 PM CDT LABORATORY Blood STRUCTURE OF LEFT HAND / Unknown Venipuncture / Unknown 02/22/2024 10:02 PM CDT 02/22/2024 10:05 PM CDT La Castaneda PA-C LAB - BLOOD ORDER DOT LABORATORY [facility] Acute Care Lab [address] Lab (1st floor, no room number) [place] [address], [facility] * (ABNORMAL) UA with Microscopic (02/22/2024 7:06 PM CDT) Color Urine [place](A) Colorless, Straw, Light Yellow, Yellow 02/22/2024 7:42 PM CDT LABORATORY Appearance Urine Slightly Cloudy(A) Clear 02/22/2024 7:42 PM CDT LABORATORY Glucose Urine Negative Negative mg/dL 02/22/2024 7:42 PM CDT RH LABORATORY Bilirubin Urine Negative Negative 7:42 PM CDT RH LABORATORY Ketones Urine Negative Negative mg/dL 02/22/2024 7:42 PM CDT RH LABORATORY Specific [place] Urine 1.018 1.003 - 1.035 02/22/2024 7:42 PM CDT LABORATORY Blood Urine Large(A) Negative 02/22/2024 7:42 PM CDT LABORATORY pH Urine 5.5 5.0 - 7.0 02/22/2024 7:42 PM CDT LABORATORY Protein Albumin Urine 30(A) Negative mg/dL 02/22/2024 7:42 PM CDT LABORATORY Urobilinogen Urine Normal Normal, 2.0 mg/dL 02/22/2024 7:42 PM CDT LABORATORY Nitrite Urine Negative Negative 02/22/2024 7:42 PM CDT LABORATORY Leukocyte Esterase Urine Moderate(A) Negative 02/22/2024 7:42 PM CDT LABORATORY Bacteria Urine Few(A) None Seen /HPF 02/22/2024 7:42 PM CDT LABORATORY Mucus Urine Present(A) None Seen /LPF 02/22/2024 7:42 PM CDT LABORATORY RBC Urine >182(H) <=2 /HPF 02/22/2024 7:42 PM CDT LABORATORY WBC Urine 31(H) <=5 /HPF 02/22/2024 7:42 PM CDT LABORATORY Squamous Epithelials Urine 3(H) <=1 /HPF 02/22/2024 7:42 PM CDT LABORATORY Urine MID-STREAM URINE SPECIMEN / Unknown Non-blood Collection / Unknown 02/22/2024 7:06 PM CDT 02/22/2024 7:17 PM CDT La Castaneda PA-C LAB - URINE ORDER DOT LABORATORY [facility] Lab [address] Lab (1st floor, no room number) [place] [address], [facility] * (ABNORMAL) Urine Culture (02/22/2024 7:06 [...] PM CDT 02/22/2024 7:17 PM CDT La CUMMINGS-C LAB - MICRO GENER AL ORDERABLES [facility] LABORATORY [facility] Inf. Diseases Diag. Lab [address] [place] [phone] * Chest XR, PA & LAT (02/22/2024 2:34 PM CDT) Anatomical Region Laterality Modality Chest Digital Radiogra phy 02/22/2024 2:34 PM CDT Impressions 02/22/2024 3:01 PM CDT IMPRESSION: Negative chest. Narrative 02/22/2024 3:01 PM CDT EXAM: XR CHEST 2 VIEWS LOCATION: [facility] DATE: 02/22/2024 INDICATION: rigors, recent surgery, ? PNA COMPARISON: 04/08/2023 Procedure Note Pantera Soriano MD - 02/22/2024 EXAM: XR CHEST 2 VIEWS LOCATION: [facility] DATE: 02/22/2024 INDICATION: rigors, recent [...] CDT EXAM: CT HEAD W/O CONTRAST LOCATION: [facility] DATE: 02/22/2024 INDICATION: recent rhinoplasty, [...] 02/22/2024 EXAM: CT HEAD W/O CONTRAST LOCATION: [facility] DATE: 02/22/2024 INDICATION: recent rhinoplasty, [...] 1. Normal head CT. Fam Rodriguez MD [facility] CT ORDERABLES * (ABNORMAL) Verigene GN Panel [...] MICRO GENER AL ORDERABLES [facility] LABORATORY [facility] Inf. Diseases Diag. Lab [address] [place] [address], [facility] * (ABNORMAL) Comprehensive metabolic panel (02/22/2024 1:51 PM CDT) [facility] Sodium 140 135 - 145 mmol/L 02/22/2024 [...] LAB - BLOOD ORDER DOT RH LABORATORY [facility] Lab [address] [facility] Lab (1st floor, no room number) [place] [address] * EKG 12-lead, tracing only (02/22/2024 1:20 PM CDT) Systolic Blood Pressure mmHg RADIOLOGY RESULTS Diastolic Blood Pressure mmHg RADIOLOGY RESULTS Ventricular Rate 99 BPM RAD IOLOGY RESULTS Atrial Rate 99 BPM RADIOLOG Y RESULTS WI Interval 198 ms RADIOLOG Y RESULTS QRS Duration 92 ms RADIOLO GY RESULTS QT 372 ms RADIOLOGY RESULTS QTc 477 ms RADIOLOGY RESULTS P [place] 12 degrees RADIOLOGY RESULTS R AXIS 46 degrees RADIOLOGY RESULTS T [place] -16 degrees RADIOLOGY RESULTS Interpretation ECG Sinus rhythm Incomplete right bundle branch block Cannot rule out Anterior infarct , age undetermined Abnormal ECG When compared with ECG of 24-JAN-2006 18:40, Significant changes have occurred Confirmed by - EMERGENCY ROOM, PHYSICIAN ([id number]), features editor ERIN HERNANDEZ ([id number]) on 02/24/2024 7:24:18 AM RADIOLOGY RESULTS 02/22/2024 1:20 PM CDT 02/24/2024 7:24 AM CDT Adan Pitt MD ECG ORDERABLES RADIOLOGY RESULTS from Last 3 Months Advance Directives For more information, please contact: [phone] * Full Code (Latest Code Status on File) Date Activated Date Inactivated Comments 02/22/2024 5:56 PM 02/25/2024 4:10 PM All basic an d advanced life-sustaining interventions are performed as appropriate Question Answer Comments Code status determined by: Discussion with hope nt/ legal decision maker Care Teams Home Health Provider Relationship Specialty Start Date End Date [facility]- [address] [place] [address] PCP - General 03/29/21 Susan Doshi MD [address] [place] [address] 03/29/21
--- OUTSIDE RECORDS SUMMARY | 2024-03-10 10:09 | XMS_ITS | Continuity of Care Document ---
Author Organization [facility] Address [address] [place] [address] Phone Care Team Providers Care Weatherization Operations Manager Name Role Phone Atul Donald MD Unavailable Unavailable Advance Directives Directive Yes / No Effective Date File Name No Information Encounters Encounter Description Practice Location Reason(s) For Visit Diagnoses Date Provider Providers Copied on Encounter [facility], [address], [place], [address], [place] tel:[phone] [facility], No Information Odilon Pollard. [facility] [address], [place], [address], [place]. tel:[phone] Family History Family Member Type Diagnosis Age At Onset No Information Payers Payer name Insurance type Covered green party ID Authoriza tion(s) No Information Social [...]
--- OUTSIDE RECORDS SUMMARY | 2024-03-10 10:09 | XMS_ITS | Encounter Summary ---
Author Organization [facility] Address [address] [place] [address] Care Team Providers Care Respiratory Therapy Manager Name Role Phone [facility]- Primary Care Provider Susan Doshi MD Unavailable Unavailable Encounter Details Date Type Department Care Team (Latest Contact Info) Description 02/22/2024 Travel Social History Tobacco Use Types Packs/Day Years [...] on file documented as of this encounter Plan of Treatment Not on file documented as of this encounter Visit Diagnoses Not on filedocumented in this encounter Care Teams Respiratory Therapy Manager Relationship Specialty Start Date End Date [facility]- [address] [place] [address] PCP - General 03/29/21 Susan Doshi MD [address] [place] [address] 03/29/21 documented as of this encounter
== END 2024-03-10 10:02 | disposition home or self-care (01) ==
PROVIDERS: PCP Family Medicine; Visit Provider Family Medicine
DX: A41.9 Sepsis, unspecified organism (principal); E83.42 Hypomagnesemia; R00.1 Bradycardia, unspecified
CPT/HCPCS: 82784; 83735; 84145; 86140; 87040; 87086

== ENCOUNTER 2024-04-28 15:12 | Outpatient (CLI) | payer OTHER, SELFPAY ==
--- OUTSIDE RECORDS SUMMARY | 2024-04-28 15:15 | XMS_ITS | Clinical Summary ---
Author Organization [place] Address [address] [place] [address] Care Team Providers Care Cook Sauce Name Role Phone [facility]- Primary Care Provider Susan Doshi MD [...] drop into both eyes at bedtime Active fluticasone-salmeter ol (ADVAIR) 250-50 MCG/ACT inhaler Inhale 1 puff into the lungs every 12 hours Active metoclopramide (REGLAN) 5 MG tabletIndications:Na usea Take 1 tablet (5 mg) by mouth 3 times daily as needed (nausea) 20 tablet 02/25/2024 Active Active Problems Problem Noted Date Diagnosed Date Hypokalemia 02/22/2024 History of nasal septoplasty 02/22/2024 Recurrent syncope 02/22/2024 CARDIOVASCULAR SCREENING; LDL GOAL LESS THAN 160 11/16/2009 Mild intermittent asthma Encounters Date Type Department Care Team Description 02/22/2024 12:20 PM CDT - 02/25/2024 2:10 PM CDT Hospital Encounter [facility] Observation Dept [address] [place] [address] Fam Rodriguez MD Abdissa, Mesfin E, MD [...] Hep B Twinrix 3-dose series) 11/26/2023 10/29/2023 INFLUENZA VACCINE (#1) 2024 , 07/15/2019, 06/29/2016, Additional history exists GLUCOSE 02/24/2027 02/25/2024, 02/05, 02/23/2024, Additional history exists DTAP/TDAP/TD IMMUNIZATION (2 - Td or Tdap) 06/26/2031 06/26/2021 COVID-19 Vaccine Completed 11/03/2023, 01/2022, 09/19/2021 HPV [...] of3 resultswithin the time period is included. [facility] WBC Count 2.9(L) 4.0 - 11.0 10e3/uL [...] - BLOOD ORDERABL ES Performing Organization Address [facility]/ZIP Co de Phone Number LABORATORY [facility] Acute Care Lab [address] Lab (1st floor, no room number) [address] * Magnesium (02/25/2024 7:04 AM CDT) Only the most recent of4 resultswithin the time period is included. Magnesium 2.0 1.7 - 2.3 mg/dL 02/25/2024 7:52 AM CDT LABORATORY Blood STRUCTURE OF LEFT UPPER LIMB / Unknown Venipuncture / Unknown 02/25/2024 7:04 AM CDT 02/25/2024 7:21 AM CDT Socrates Bay MD LAB - BLOOD ORDERABL ES Performing Organization Address [facility] Co de Phone Number [facility] Acute Care Lab [address] Lab (1st floor, no room number) [address] * (ABNORMAL) Basic metabolic panel (02/25/2024 7:04 [...] MD LAB - BLOOD ORDERABL ES LABORATORY [facility] Acute Care Lab [address] [facility] Lab (1st floor, no room number) [place] [address], [facility] * (ABNORMAL) Procalcitonin (02/24/2024 5:50 AM CDT) [...] See Procalcitonin Guidance document for more details. [email or web address] Factors that may affect PCT levels (not [...] Bay MD LAB - BLOOD ORDERABL ES [facility] Acute Care Lab [address] [facility] Lab (1st floor, no room number) [place] [address], [facility] * (ABNORMAL) CBC with platelets (02/24/2024 5:50 [...] LAB - BLOOD ORDERABL ES RH LABORATORY [facility] Acute Care Lab [address] Lab (1st floor, no room number) [place] [address] * Lactic acid whole blood (02/22/2024 11:47 PM CDT) Lactic Acid 0.9 0.7 - 2.0 mmol/L 02/22/2024 11:51 PM CDT RH LABORATORY Blood STRUCTURE OF LEFT HAND / Unknown Venipuncture / Unknown 02/22/2024 11:47 PM CDT 02/22/2024 11:49 PM CDT La Castaneda PA-C LAB - BLOOD ORDER DOT LABORATORY [facility] Acute Care Lab [address] Lab (1st floor, no room number) [place] [address] * (ABNORMAL) CRP inflammation (02/22/2024 10:32 PM CDT) CRP Inflammation 42.29(H) <5.00 mg/L 02/22/2024 10:58 PM CDT RH LABORATORY Blood STRUCTURE OF LEFT UPPER LIMB / Unknown Venipuncture / Unknown 02/22/2024 10:32 PM CDT 02/22/2024 10:37 PM CDT La Castaneda PA-C LAB - BLOOD ORDER DOT Performing Organization Address City/[facility]/ZIP Co de Phone Number LABORATORY [facility] Acute [facility] Lab [address] Lab (1st floor, no room number) [place] [address] * Blood Culture Arm, Left (02/22/2024 10:32 PM CDT) Only the most recent of4 resultswithin the time period is included. Pathologist [facility] Culture No Growth 02/28/2024 1:05 AM CDT [facility] IDD LABORATORY Blood STRUCTURE OF LEFT UPPER LIMB / Unknown Venipuncture / Unknown 02/22/2024 10:32 PM CDT 02/22/2024 10:37 PM CDT La Castaneda PA-C LAB - MICRO GENER AL ORDERABLES [facility] IDD LABORATORY [facility] Inf. Diseases Diag. Lab [address] [facility], [address] [place] [address], [facility] * (ABNORMAL) Lactic Acid Whole Blood w/ 1x repeat in 2 hrs when >2 (02/22/2024 10:02 PM CDT) Lactic Acid, Initial 2.4(H) 0.7 - 2.0 mmol/L 02/22/2024 10:07 PM CDT RH LABORATORY Blood STRUCTURE OF LEFT HAND / Unknown Venipuncture / Unknown 02/22/2024 10:02 PM CDT 02/22/2024 10:05 PM CDT La Castaneda PA-C LAB - BLOOD ORDER DOT RH LABORATORY [facility] Acute Care Lab [address] Lab (1st floor, no room number) [place] [address], [facility] * (ABNORMAL) UA with Microscopic (02/22/2024 7:06 PM CDT) Color Urine [place](A) Colorless, Straw, Light Yellow, Yellow 02/22/2024 7:42 PM CDT LABORATORY Appearance Urine Slightly Cloudy(A) Clear 02/22/2024 7:42 PM CDT LABORATORY Glucose Urine Negative Negative mg/dL 02/22/2024 7:42 PM CDT LABORATORY Bilirubin Urine Negative Negative 7:42 PM CDT LABORATORY Ketones Urine Negative Negative mg/dL 02/22/2024 7:42 PM CDT LABORATORY Specific [place] Urine 1.018 1.003 - 1.035 02/22/2024 7:42 [...] PA-C LAB - URINE ORDER DOT LABORATORY [facility] Acute Care Lab [address] [facility] Lab (1st floor, no room number) [place] [address] * (ABNORMAL) Urine Culture (02/22/2024 7:06 PM [...] MICRO GENER AL ORDERABLES UU IDD LABORATORY [facility] Inf. Diseases Diag. Lab [address] [facility], [address] [place] [address], [facility] * Chest XR, PA & LAT (02/22/2024 2:34 PM CDT) Anatomical Region Laterality Modality Chest Digital Radiogra phy 02/22/2024 2:34 PM CDT Impressions 02/22/2024 3:01 PM CDT IMPRESSION: Negative chest. Narrative 02/22/2024 3:01 PM CDT EXAM: XR CHEST 2 VIEWS LOCATION: [facility] DATE: 02/22/2024 INDICATION: rigors, recent surgery, ? PNA COMPARISON: 04/08/2023 Procedure Note Pantera Soriano MD - 02/22/2024 EXAM: XR CHEST 2 VIEWS LOCATION: [facility] DATE: 02/22/2024 INDICATION: rigors, recent surgery, [...] CDT EXAM: CT HEAD W/O CONTRAST LOCATION: [facility] DATE: 02/22/2024 INDICATION: recent rhinoplasty, ? [...] 02/22/2024 EXAM: CT HEAD W/O CONTRAST LOCATION: [facility] DATE: 02/22/2024 INDICATION: recent rhinoplasty, ? [...] 1. Normal head CT. Fam Rodriguez MD IM CT ORDERABLES * (ABNORMAL) Verigene GN Panel [...] LABORATORY Comment:Positive for Klebsie lla oxytoca by The [employer] Vaultigene multiplex nucleic acid test. Final identification and [...] 02/23/2024 9:59 AM CDT Specimen tested with [employer] Vaultig[employer] multiplex, gram-negative blood culture nucleic acid test for the following targets: Acinetobacter species, Citrobacter species, Enterobacter species, Proteus species, Escherichia coli, Klebsiella pneumoniae, Klebsiella oxytoca, Pseudomonas aeruginosa, and the following resistance markers: CTX-M, KPC, NDM, VIM, IMP and OXA. Fam Rodriguez MD LAB - MICRO GENER AL ORDERABLES UU IDD LABORATORY [facility] Inf. Diseases Diag. Lab [address] [facility], [address] [place], [place] [phone] * (ABNORMAL) Comprehensive metabolic panel (02/22/2024 1:51 PM CDT) [facility] Sodium 140 135 - 145 mmol/L [...] MD LAB - BLOOD ORDER DOT LABORATORY [facility] Acute Care Lab [address] Lab (1st floor, no room number) [place] [address] * EKG 12-lead, tracing only (02/22/2024 1:20 PM CDT) Systolic Blood Pressure mmHg RADIOLOGY RESULTS Diastolic Blood Pressure mmHg RADIOLOGY RESULTS Ventricular Rate 99 BPM RAD IOLOGY RESULTS Atrial Rate 99 BPM RADIOLOG Y RESULTS [place] Interval 198 ms RADIOLOG Y RESULTS QRS Duration 92 ms RADIOLO GY RESULTS QT 372 ms RADIOLOGY RESULTS QTc 477 ms RADIOLOGY RESULTS P [place] 12 degrees RADIOLOGY RESULTS R AXIS 46 degrees RADIOLOGY RESULTS T [place] -16 degrees RADIOLOGY RESULTS Interpretation ECG Sinus rhythm Incomplete right bundle branch block Cannot rule out Anterior infarct , age undetermined Abnormal ECG When compared with ECG of 24-JAN-2006 18:40, Significant changes have occurred Confirmed by - EMERGENCY ROOM, PHYSICIAN ([id number]), assistant editor ERIN HERNANDEZ (Giorgi) on 02/24/2024 7:24:18 AM RADIOLOGY RESULTS 02/22/2024 1:20 PM CDT 02/24/2024 7:24 AM CDT Adan Pitt MD ECG ORDERABLES RADIOLOGY RESULTS from Last 3 Months Advance Directives For more information, please contact: [phone] * Full Code (Latest Code Status on File) Date Activated Date Inactivated Comments 02/22/2024 5:56 PM 02/25/2024 4:10 PM All basic an d advanced life-sustaining interventions are performed as appropriate Question Answer Comments Code status determined by: Discussion with hope nt/ legal decision maker Care Teams Cook Sauce Relationship Specialty Start Date End Date [facility]- [address] [place], [place] [id number] PCP - General 03/29/21 Susan Doshi MD [address] [place] [address] 03/29/21
--- OUTSIDE RECORDS SUMMARY | 2024-04-28 15:15 | XMS_ITS | Referral Summary ---
Author Organization [place] Address [address] [place] [address] Care Team Providers Care Water Resources Project Manager Name Role Phone [facility]- Primary Care Provider Susan Doshi MD Unavailable Unavailable Encounters Date Type Department Care Team Description 02/22/2024 12:20 PM CDT - 02/25/2024 2:10 PM CDT Hospital Encounter [facility] Observation Dept [address] [place] [address] Fam Rodriguez MD Abdissa, Mesfin E, MD [...] - BLOOD ORDERABL ES Performing Organization Address City/[facility]/ZIP Co de Phone Number [facility] Acute Care Lab [address] Lab (1st floor, no room number) [address] * Magnesium (02/25/2024 7:04 AM CDT) Only the most recent of4 resultswithin the time period is included. Magnesium 2.0 1.7 - 2.3 mg/dL 02/25/2024 7:52 AM CDT RH LABORATORY Blood STRUCTURE OF LEFT UPPER LIMB / Unknown Venipuncture / Unknown 02/25/2024 7:04 AM CDT 02/25/2024 7:21 AM CDT Socrates Bay MD LAB - BLOOD ORDERABL ES [facility] Acute Care Lab [address] Lab (1st floor, no room number) [place] [phone] * (ABNORMAL) Basic metabolic panel (02/25/2024 7:04 AM CDT) Only the most recent of3 resultswithin the time period is included. [facility] Signature Sodium 142 135 - 145 mmol/L 02/25/2024 [...] MD LAB - BLOOD ORDERABL ES LABORATORY [facility] Acute Care Lab [address] Lab (1st floor, no room number) [place] [address], [facility] * (ABNORMAL) Procalcitonin (02/24/2024 5:50 [...] See Procalcitonin Guidance document for more details. [email or web address] Factors that may affect PCT levels (not [...] MD LAB - BLOOD ORDERABL ES LABORATORY [facility] Acute Care Lab [address] Lab (1st floor, no room number) [place] [address] * (ABNORMAL) CBC with platelets (02/24/2024 [...] MD LAB - BLOOD ORDERABL ES LABORATORY [facility] Acute Care Lab [address] Lab (1st floor, no room number) [place] [address], [facility] * Lactic acid whole blood (02/22/2024 11:47 PM CDT) Lactic Acid 0.9 0.7 - 2.0 mmol/L 02/22/2024 11:51 PM CDT LABORATORY Blood STRUCTURE OF LEFT HAND / Unknown Venipuncture / Unknown 02/22/2024 11:47 PM CDT 02/22/2024 11:49 PM CDT La CUMMINGS-C LAB - BLOOD ORDER DOT Performing Organization Address [facility]/ZIP Co de Phone Number LABORATORY [facility] Lab [address] Lab (1st floor, no room number) [address] * (ABNORMAL) CRP inflammation (02/22/2024 10:32 PM CDT) CRP Inflammation 42.29(H) <5.00 mg/L 02/22/2024 10:58 PM CDT LABORATORY Blood STRUCTURE OF LEFT UPPER LIMB / Unknown Venipuncture / Unknown 02/22/2024 10:32 PM CDT 02/22/2024 10:37 PM CDT La CUMMINGS-C LAB - BLOOD ORDER DOT Performing Organization Address [facility] Co de Phone Number [facility] Lab [address] Lab (1st floor, no room number) [address] * Blood Culture Arm, Left (02/22/2024 10:32 PM CDT) Only the most recent of4 resultswithin the time period is included. Culture No Growth 02/28/2024 1:05 AM CDT UU IDD LABORATORY Blood STRUCTURE OF LEFT UPPER LIMB / Unknown Venipuncture / Unknown 02/22/2024 10:32 PM CDT 02/22/2024 10:37 PM CDT La Castaneda PA-C LAB - MICRO GENER AL ORDERABLES UU IDD LABORATORY [facility] Inf. Diseases Diag. Lab [address] [facility], [address] [place] [address], [facility] * (ABNORMAL) Lactic Acid Whole Blood w/ 1x repeat in 2 hrs when >2 (02/22/2024 10:02 PM CDT) Lactic Acid, Initial 2.4(H) 0.7 - 2.0 mmol/L 02/22/2024 10:07 PM CDT LABORATORY Blood STRUCTURE OF LEFT HAND / Unknown Venipuncture / Unknown 02/22/2024 10:02 PM CDT 02/22/2024 10:05 PM CDT La Castaneda PA-C LAB - BLOOD ORDER DOT LABORATORY [facility] Acute Care Lab [address] Lab (1st floor, no room number) [place] [address], [facility] * (ABNORMAL) UA with Microscopic (02/22/2024 7:06 PM CDT) Color Urine [place](A) Colorless, Straw, Light Yellow, Yellow 02/22/2024 7:42 PM CDT LABORATORY Appearance Urine Slightly Cloudy(A) Clear 02/22/2024 7:42 PM CDT RH LABORATORY Glucose Urine Negative Negative mg/dL 02/22/2024 7:42 PM CDT LABORATORY Bilirubin Urine Negative Negative 7:42 PM CDT RH LABORATORY Ketones Urine Negative Negative mg/dL 02/22/2024 7:42 PM CDT LABORATORY Specific [place] Urine 1.018 1.003 - 1.035 02/22/2024 7:42 [...] PA-C LAB - URINE ORDER DOT LABORATORY [facility] Acute Care Lab [address] [facility] Lab (1st floor, no room number) [place] [address] * (ABNORMAL) Urine Culture (02/22/2024 7:06 [...] MICRO GENER AL ORDERABLES UU IDD LABORATORY [facility] Inf. Diseases Diag. Lab [address] [facility], [address] [place] [address], [facility] * Chest XR, PA & LAT (02/22/2024 2:34 PM CDT) Anatomical Region Laterality Modality Chest Digital Radiogra phy 02/22/2024 2:34 PM CDT Impressions 02/22/2024 3:01 PM CDT IMPRESSION: Negative chest. Narrative 02/22/2024 3:01 PM CDT EXAM: XR CHEST 2 VIEWS LOCATION: [facility] DATE: 02/22/2024 INDICATION: rigors, recent surgery, ? PNA COMPARISON: 04/08/2023 Procedure Note Pantera Soriano MD - 02/22/2024 EXAM: XR CHEST 2 VIEWS LOCATION: [facility] DATE: 02/22/2024 INDICATION: rigors, recent surgery, ? [...] CDT EXAM: CT HEAD W/O CONTRAST LOCATION: [facility] DATE: 02/22/2024 INDICATION: recent rhinoplasty, ? Seizure [...] 02/22/2024 EXAM: CT HEAD W/O CONTRAST LOCATION: [facility] DATE: 02/22/2024 INDICATION: recent rhinoplasty, ? Seizure [...] 1. Normal head CT. Fam Rodriguez MD IMG CT ORDERABLES * (ABNORMAL) Verigene GN Panel [...] LABORATORY Comment:Positive for Klebsie lla oxytoca by Qubritigene multiplex nucleic acid test. Final identification and [...] 02/23/2024 9:59 AM CDT Specimen tested with Qubritigene multiplex, gram-negative blood culture nucleic acid test for the following targets: Acinetobacter species, Citrobacter species, Enterobacter species, Proteus species, Escherichia coli, Klebsiella pneumoniae, Klebsiella oxytoca, Pseudomonas aeruginosa, and the following resistance markers: CTX-M, KPC, NDM, VIM, IMP and OXA. Fam Rodriguez MD LAB - MICRO GENER AL ORDERABLES UU IDD LABORATORY [facility] Inf. Diseases Diag. Lab [address] [facility], [address] [place] [address] * (ABNORMAL) Comprehensive metabolic panel (02/22/2024 1:51 PM CDT) [facility] Sodium 140 135 - 145 mmol/L [...] - 20.0 mg/dL 02/22/2024 2:25 PM CDT LABORATORY Creatinine 0.76 0.51 - 0.95 mg/dL [...] - 45 U/L 02/22/2024 2:25 PM CDT LABORATORY Comment:Reference intervals [...] LAB - BLOOD ORDER DOT RH LABORATORY [facility] Acute Care Lab [address] Lab (1st floor, no room number) [place] [address] * EKG 12-lead, tracing only (02/22/2024 1:20 PM CDT) Systolic Blood Pressure mmHg RADIOLOGY RESULTS Diastolic Blood Pressure mmHg RADIOLOGY RESULTS Ventricular Rate 99 BPM RAD IOLOGY RESULTS Atrial Rate 99 BPM RADIOLOG Y RESULTS [place] Interval 198 ms RADIOLOG Y RESULTS QRS Duration 92 ms RADIOLO GY RESULTS QT 372 ms RADIOLOGY RESULTS QTc 477 ms RADIOLOGY RESULTS P [place] 12 degrees RADIOLOGY RESULTS R AXIS 46 degrees RADIOLOGY RESULTS T [place] -16 degrees RADIOLOGY RESULTS Interpretation ECG Sinus rhythm Incomplete right bundle branch block Cannot rule out Anterior infarct , age undetermined Abnormal ECG When compared with ECG of 24-JAN-2006 18:40, Significant changes have occurred Confirmed by - EMERGENCY ROOM, PHYSICIAN ([id number]), editor index ERIN HERNANDEZ (Giorgi) on 02/24/2024 7:24:18 AM RADIOLOGY RESULTS 02/22/2024 1:20 PM CDT 02/24/2024 7:24 AM CDT Adan Pitt MD ECG ORDERABLES RADIOLOGY RESULTS from Last 3 Months Advance Directives For more information, please contact: [phone] * Full Code (Latest Code Status on File) Date Activated Date Inactivated Comments 02/22/2024 5:56 PM 02/25/2024 4:10 PM All basic an d advanced life-sustaining interventions are performed as appropriate Question Answer Comments Code status determined by: Discussion with hope nt/ legal decision maker Care Teams Water Resources Project Manager Relationship Specialty Start Date End Date [facility]- [address] [place] [address] PCP - General 03/29/21 Susan Doshi MD [address] [place] [address] 03/29/21
--- OUTSIDE RECORDS SUMMARY | 2024-04-28 15:15 | XMS_ITS | Encounter Summary ---
Author Organization [facility] Address [address] [place] [address] Care Team Providers Care Carpenter Packing Name Role Phone [facility]- Primary Care Provider Susan Doshi MD Unavailable Unavailable Reason for Visit * Reason Comments Syncope * Auth/Cert (Routine) Specialty Diagnoses / Procedures Referred By Anabelle mendoza Referred To Contact Med Surg Diagnoses Hypokalemia History of nasal septoplasty Recurrent syncope Hypokalemia Recurrent syncope History of nasal septoplasty Observation Dept [address] [place] [address] Referral ID Status Reason Start Date Expiration Date Visits Re quested Visits Authorized [id number] 1 1 Encounter Details Date Type Department Care Team (Late st Contact Info) Description 02/22/2024 12:20 PM CDT - 02/25/2024 2:10 PM CDT Hospital Encounter [facility] Observation Dept [address] [place] [address] Fam Rodriguez MD [facility] [address] [place], [place] [phone] Socrates Bay MD [address] [place] [address] Bacteremia (Primary Dx); Hypokalemia; Recurrent [...] Bravo MD - 02/25/2024 1:41 PM CDT [facility] Hospitalist Discharge Summary Date of Admission: 02/22/2024 [...] the setting of recent septoplasty yesterday at [place]. Pt states she underwent septoplasty and some [...] tonic clonic like description. They called the care aid to bring her to ED. Work up [...] surgery was on 02/20 - was at [facility] (Dr. Mueller) Electrolyte imbalance - hypokalemia, hypomagnesemia, [...] minutes discharging this patient. Jamil Bravo MD [facility] OBSERVATION DEPT [address] [facility] [address] Physical Exam Vital Signs: Temp: 97.8 ??F (36.6 ??C) Temp src: Axillary BP: 117/72 Pulse: 54 Resp: 20 SpO2: 96 % O2 Device: None (Room air) Weight: 166 lbs 0 oz See note Primary Care Physician [facility] Discharge Orders Reason for your hospital [...] Narrative EXAM: XR CHEST 2 VIEWS LOCATION: [facility] DATE: 02/22/2024 INDICATION: rigors, recent surgery, ? PNA COMPARISON: 04/08/2023 Impression IMPRESSION: Negative chest. Head CT w/o contrast Narrative EXAM: CT HEAD W/O CONTRAST [facility]: [facility] [...] encounter Progress Notes * Janki Bliss APRN DEPARTMENT CHAIRPERSON - 02/25/2024 1:24 PM CDT [facility] ACUTE PAIN SERVICE [facility] PAIN Progress Note Assessment/Plan: Tenzin [...] Constipation Prophylaxis: Scheduled and prn: Senna-docusate -[place] YARN DYER pulled from system on 02/25/2024. This indicates [...] Video STOP time: 1130, 02/25/2024 Patient's location: [facility] OBSERVATION DEPT Provider's location during the visit: [facility] Principal Problem: <principal problem not specified> [...] Saha APRNP-C Acute Care Pain Management Program [facility] Saturday-Saturday 8a-4p Page via Aquiris or cottonTracksaging * Paulina Franco MD - 02/25/2024 1:05 PM CDT Images from the original note were not included. 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 Pt states she underwent septoplasty and some [...] 10 mg Oral Daily Berkley Pichardo APRN DEPARTMENT CHAIRPERSON 10 mg at 02/25/24 0830 fluticasone-vilanterol (BREO ELLIPTA) 100-25 MCG/ACT inhaler 1 puff 1 puff Inhalation BID Tonja Manriquez PA-C 1 puff at 02/25/24 0830 ibuprofen (ADVIL/MOTRIN) tablet 800 mg 800 mg Oral Q6H Berkley Pichardo APRN DEPARTMENT CHAIRPERSON 800 mg at02/25/24 0830 lidocaine (XYLOCAINE) 5 [...] 0.75 02/22/2024223102/25/2024 0106 Blood Culture Arm, Left [[id number]] Blood from Arm, Left Preliminary result Component Value Culture No growth after 2 days P 02/22/2024223102/25/2024 0106 Blood Culture Arm, Left [[id number]] Blood from Arm, Left Preliminary result Component Value Culture No growth after 2 days P 02/22/2024 1906 02/24/2024 0748 Urine Culture [[id number]] (Abnormal) Urine, Midstream Final result Component Value [...] 1357 02/25/2024 0753 Blood Culture Arm, Right [[id number]] (Abnormal) Blood from Arm, Right Final result [...] Bravo MD - 02/25/2024 11:35 AM CDT [facility] Medicine Progress Note - Hospitalist Service Date of Admission: 02/22/2024 Assessment & Plan Tenzin Fortune is a 43 year old female with past medical history significant for 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 Found to have Klebsiella bacteremia Acute postoperative [...] surgery was on 02/20 - was at [facility] (Dr. Mueller) Electrolyte imbalance - hypokalemia, hypomagnesemia, [...] Anticipated Tomorrow Jamil Bravo MD Hospitalist Service [facility] Securely message with RENTISH (more info) Text page via [employer] Paging/Directory Interval History Patient feeling better. No [...] from the original note were not included. [facility] Hospitalist Progress Note Socrates Bay M.D., M.B.A. [...] the setting of recent septoplasty 02/20 at [place]. Pt states she underwent septoplasty and some [...] tonic clonic like description. They called the care aid to bring her to ED. Work up [...] --Surgery is done by ENT physician at [facility] and was sent home the same day. [...] case, Dr Mueller ,her ENT doctor (telephone #[phone]) can arrange clinic appointment in the morning to remove the pack. If in case patient is not able to discharge tomorrow and needs to stay in the hospital for IV antibiotics, ENT physician consultation needs to be requested to remove the pack since Dr Mueller does not have privileges to come to [facility] Interval History (Subjective): Patient is seen and [...] Narrative EXAM: CT HEAD W/O CONTRAST [facility]: [facility] [...] Narrative EXAM: XR CHEST 2 VIEWS LOCATION: [facility] [...] from the original note were not included. [facility] Hospitalist Progress Note Socrates Bay M.D., M.B.A. [...] the setting of recent septoplasty 02/20 at [place]. Pt states she underwent septoplasty and some [...] tonic clonic like description. They called the care aid to bring her to ED. Work up [...] --Surgery is done by ENT physician at [facility] and was sent home the same day. [...] Narrative EXAM: XR CHEST 2 VIEWS [facility]ATION: [facility] [...] Would recommend contacting him tomorrow if needed [phone] Dr. 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 Pt states she underwent septoplasty and some [...] tonic clonic like description. They called the care aid to bring her to ED. 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 Pt states she underwent septoplasty and some [...] tonic clonic like description. They called the care aid to bring her to ED. Work up [...] Narrative EXAM: CT HEAD W/O CONTRAST LOCATION: [facility] [...] Narrative EXAM: XR CHEST 2 VIEWS LOCATION: [facility] [...] ALT 18 AST 36 La Castaneda PA-C [facility] Medicine February 22, 2024 Securely message with the Point Console (learn more here) Text page via [facility] Paging/Directory Associated attestation - Socrates Bay MD [...] Bergman MD Page: * Berkley Pichardo, KAYLA DEPARTMENT CHAIRPERSON - 02/24/2024 10:00 AM CDTAssociated Order(s): PAIN MANAGEMENT ADULT IP CONSULT [facility] ACUTE INPATIENT PAIN SERVICE [facility] PAIN Consult Assessment/Plan: Tenzin Fortune is a 43 year old female who was admitted on 02/22/2024. I was asked by Dr. Phu emmanuel the patient for pain after septoplasty. Admitted for shaking. History of asthma, PVCs, chronic back pain from arthritis. YARN DYER shows oxycodone last April, gabapentin, tramadol on [...] po dilaudid Subjective: Pt notes ablation with [place] [facility]. Notes pain is better. Ears feel [...] Patient Hospital Room Distant Location (provider location): [place] Reason for Televisit: Pain Consult Mode of Communication: Video Conference via Nextt Physician has received verbal consent for a [...] activities per the note. Berkley Pichardo APRN, BRINE PROCESS OPERATOR-BC, DEPARTMENT CHAIRPERSON Acute Care Pain Management Program Hours of pain coverage Mon-Fri 8-1600, afterhours please call the stock house worker [facility] (WW, JNs, SD, RH) Page via OneName console -Click for RENTISH * Phill Francis MD - 02/23/2024 11:02 AM CDTAssociated Order(s): INFECTIOUS DISEASES IP CONSULT [facility] Infectious Disease Consultation Date of Admission: 02/22/2024 [...] recent septoplasty a day before presentation at [place]. Pt states she underwent septoplasty and some [...] patient for shaking chills. Primary Care Physician [facility] Chief Complaint Shaking chills History is obtained [...] Cardona RN - 02/22/2024 2:05 PM CDT [facility] ED Nurse Handoff Report ED Chief complaint: Syncope . ED Diagnosis: Final diagnoses: None Allergies: Allergies Allergen Reactions Acetaminophen Acetaminophen Headache Other Environmental Allergy Nickel Latex Rash Code Status: Full Code Activity level - Baseline/Home: independent. Activity Level - Current: assist of 1. Lift room needed: No. Bariatric: No Store Hand Needed: No Isolation: No. Infection: Not Applicable. [...] of Present Illness Chief Complaint Syncope HPI eTnzin Fortune is a 43 year old female [...] Pressure Ventricular Rate 99 Atrial Rate 99 SC Interval 198 QRS Duration 92 QT 372 QTc 477 P [place] 12 R AXIS 46 T Bridgeton -16 Interpretation ECG Sinus rhythm Incomplete right [...] significant for recent septal/rhinoplasty [address] [facility] presenting here for rigors as well as [...] with patient/family: sent to [facility] in [place] Discharged with spouse Follow up with ENT [...] AM CDT Goal Outcome Evaluation: Care from [phone] Inpatient Progress Note: For complete assessment see [...] Flowsheet Documentation Taken 02/25/2024 0811 by Zee Hills RN Concerns to be Addressed: discharge planning [...] Taken 02/24/2024 1131 by Maria Luisa Todd, hand method lasting machine operator Interventions: medication (see MAR) Goal: Readiness for Transition of Care Outcome: Progressing Problem: Infection Goal: Absence of Infection Signs and Symptoms Outcome: Progressing * Plan of Care - Monae Lacy RN - 02/24/2024 3:08 AM CDT Care from [phone] Inpatient Progress Note:Syncope, Nausea and Vomiting For [...] * Pharmacy-Vancomycin Dosing Service - Autumn Sales, [facility] - 02/23/2024 9:55 AM CDT Pharmacy Vancomycin [...] Note to Pharmacy: For [facility], [facility] and [facility]: For Zosyn-naive patients, use the Zosyn initial dose + extended infusion order panel. 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 * Provider Notification - Natalie Wynne RN - 02/23/2024 8:10 AM CDT Notified by teletype telegrapher that patient was sustaining HR 44-48 for [...] Flowsheet Documentation Taken 02/22/20242201 by Mimi Cardona RNhand method lasting machine operator Interventions: cold applied repositioned rest Taken 02/22/2024 1753 by Mimi Cardona RNhand method lasting machine operator Interventions: cold applied repositioned rest [...] at 10:11 PM MECHANISM OF PROVIDER NOTIFICATION: [employer] WEB PAGE PROVIDER RESPONSE: NEW ORDERS ENTERED [...] Axel Oneal - 02/22/2024 3:17 PM CDT Utilities Operator Admission Medication History Admission medication history is complete. The information provided in this note is only as accurateas the sources available at the time of the update. 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 Changed Flovent Diskus to Advair. 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 MATERIALS SALES ATTENDANT Med List Medication Sig Last Dose albuterol [...] MD LAB - BLOOD ORDERABL ES LABORATORY [facility] Acute Care Lab [address] [facility] Lab (1st floor, no room number) [place] [address] * (ABNORMAL) Basic metabolic panel (02/25/2024 [...] MD LAB - BLOOD ORDERABL ES LABORATORY [facility] Acute Care Lab [address] Lab (1st floor, no room number) [address] * Magnesium (02/25/2024 7:04 AM CDT) Magnesium 2.0 1.7 - 2.3 mg/dL 02/25/2024 7:52 AM CDT LABORATORY Blood STRUCTURE OF LEFT UPPER LIMB / Unknown Venipuncture / Unknown 02/25/2024 7:04 AM CDT 02/25/2024 7:21 AM CDT Socrates Bay MD LAB - BLOOD ORDERABL ES Performing Organization Address [facility]UST Co de Phone Number [facility] Acute Care Lab [address] Lab (1st floor, no room number) [address] * (ABNORMAL) Procalcitonin (02/24/2024 5:50 AM [...] See Procalcitonin Guidance document for more details. https://[email or web address][employer]My Ad Box/files/fairview/documents/cohyc-otyiutrzlvbqr-jnqpgsbo-on-ant ibiot [email or web address].pdf Factors that may affect PCT levels (not [...] MD LAB - BLOOD ORDERABL ES LABORATORY [facility] Acute Care Lab [address] [facility] Lab (1st floor, no room number) [place] [address], [facility] * (ABNORMAL) Basic metabolic panel (02/24/2024 5:50 AM CDT) [facility] Sodium 140 135 - 145 mmol/L 02/24/2024 [...] MD LAB - BLOOD ORDERABL ES LABORATORY [facility] Acute Care Lab [address] [facility] Lab (1st floor, no room number) [place] [address], [facility] * (ABNORMAL) CBC with platelets (02/24/2024 [...] Bay MD LAB - BLOOD ORDERABL ES [facility] Care Lab [address] Lab (1st floor, no room number) [place] [phone] [place] [address] * Magnesium (02/24/2024 5:50 AM CDT) Magnesium 1.9 1.7 - 2.3 mg/dL 02/24/2024 6:38 AM CDT RH LABORATORY Blood STRUCTURE OF LEFT UPPER LIMB / Unknown Venipuncture / Unknown 02/24/2024 5:50 AM CDT 02/24/2024 6:02 AM CDT Socrates Bay MD LAB - BLOOD ORDERABL ES [facility] Acute Care Lab [address] Lab (1st floor, no room number) [place] [address] * (ABNORMAL) Procalcitonin (02/23/2024 5:28 AM CDT) [facility] Procalcitonin 6.93(HH) <0.50 ng/mL 02/23/2024 9:24 AM [...] See Procalcitonin Guidance document for more details. [email or web address]://[email or web address] Ad Box/files/fairview/documents/ifvqh-auelgywwfhwhc-jefknmus-on-ant ibiot [email or web address].pdf Factors that may affect PCT levels (not [...] - BLOOD ORDERABL ES Performing Organization Address [facility]/ZIP Co de Phone Number LABORATORY [facility] Acute Care Lab [address] Lab (1st floor, no room number) [place] [phone] [place] [address] * Magnesium (02/23/2024 5:28 AM CDT) Magnesium 1.8 1.7 - 2.3 mg/dL 02/23/2024 6:55 AM CDT RH LABORATORY Blood STRUCTURE OF LEFT HAND / Unknown Venipuncture / Unknown 02/23/2024 5:28 AM CDT 02/23/2024 5:31 AM CDT Socrates Bay MD LAB - BLOOD ORDERABL ES Performing Organization Address [facility]/ZIP Co de Phone Number LABORATORY [facility] Acute Care Lab [address] Lab (1st floor, no room number) [address] [place] [address] * (ABNORMAL) CBC with platelets (02/23/2024 5:28 [...] GUADARRAMA LAB - BLOOD ORDER DOT LABORATORY [facility] Acute Care Lab [address] Lab (1st floor, no room number) [place] [address] * (ABNORMAL) Basic metabolic panel (02/23/2024 5:28 [...] CDT La CUMMINGS-C LAB - BLOOD ORDER ODT [facility] LABORATORY [facility] Acute Care Lab [address] Lab (1st floor, no room number) [place] [phone] [place] [address] * Lactic acid whole blood (02/22/2024 11:47 PM CDT) Lactic Acid 0.9 0.7 - 2.0 mmol/L 02/22/2024 11:51 PM CDT RH LABORATORY Blood STRUCTURE OF LEFT HAND / Unknown Venipuncture / Unknown 02/22/2024 11:47 PM CDT 02/22/2024 11:49 PM CDT La CUMMINGS-C LAB - BLOOD ORDER DOT Performing Organization Address City/[facility]/ZIP Co de Phone Number [facility] LABORATORY [facility] Acute Care Lab [address] Lab (1st floor, no room number) [address] * (ABNORMAL) CBC with platelets and [...] PA-C LAB - BLOOD ORDER DOT LABORATORY [facility] Acute Care Lab [address] Lab (1st floor, no room number) [place] [address] * (ABNORMAL) CRP inflammation (02/22/2024 10:32 PM CDT) CRP Inflammation 42.29(H) <5.00 mg/L 02/22/2024 10:58 PM CDT RH LABORATORY Blood STRUCTURE OF LEFT UPPER LIMB / Unknown Venipuncture / Unknown 02/22/2024 10:32 PM CDT 02/22/2024 10:37 PM CDT La CUMMINGS-C LAB - BLOOD ORDER DOT Performing Organization Address City/[facility]/ZIP Co de Phone Number LABORATORY [facility] Care Lab [address] Lab (1st floor, no room number) [place] [address] * Blood Culture Arm, Left (02/22/2024 10:32 PM CDT) Culture No Growth 02/28/2024 1:05 AM CDT [facility] LABORATORY Blood STRUCTURE OF LEFT UPPER LIMB / Unknown Venipuncture / Unknown 02/22/2024 10:32 PM CDT 02/22/2024 10:37 PM CDT La CUMMINGS-C LAB - MICRO GENER AL ORDERABLES [facility] LABORATORY [facility] Inf. Diseases Diag. Lab [address] [facility] [place] [address], [facility] * Blood Culture Arm, Left (02/22/2024 10:32 PM CDT) Culture No Growth 02/28/2024 1:05 AM CDT [facility] Blood STRUCTURE OF LEFT UPPER LIMB / Unknown Venipuncture / Unknown 02/22/2024 10:32 PM CDT 02/22/2024 10:37 PM CDT La Castaneda PA-C LAB - MICRO GENER AL ORDERABLES [facility]ORAT[facility] Inf. Diseases Diag. Lab [address] [facility], [address] [place] [address], [facility] * (ABNORMAL) Lactic Acid Whole Blood w/ 1x repeat in 2 hrs when >2 (02/22/2024 10:02 PM CDT) Lactic Acid, Initial 2.4(H) 0.7 - 2.0 mmol/L 02/22/2024 10:07 PM CDT LABORATORY Blood STRUCTURE OF LEFT HAND / Unknown Venipuncture / Unknown 02/22/2024 10:02 PM CDT 02/22/2024 10:05 PM CDT La Castaneda PA-C LAB - BLOOD ORDER DOT LABORATORY [facility] Acute Care Lab [address] [facility] Lab (1st floor, no room number) [place] [address], [facility] * (ABNORMAL) Urine Culture (02/22/2024 7:06 [...] MICRO GENER AL ORDERABLES [facility] LABORATORY [facility] Inf. Diseases Diag. Lab [address] [facility], [address] [place] [address] * (ABNORMAL) UA with Microscopic (02/22/2024 7:06 PM CDT) Color Urine [place](A) Colorless, Straw, Light Yellow, Yellow 02/22/2024 7:42 PM CDT [facility] LABORATORY Appearance Urine Slightly Cloudy(A) Clear 02/22/2024 7:42 PM CDT [facility] LABORATORY Glucose Urine Negative Negative mg/dL 02/22/2024 7:42 PM CDT [facility] LABORATORY Bilirubin Urine Negative Negative 7:42 PM CDT [facility] LABORATORY Ketones Urine Negative Negative mg/dL 02/22/2024 7:42 PM CDT [facility] LABORATORY Specific [facility] Urine 1.018 1.003 - 1.035 02/22/2024 7:42 [...] PA-C LAB - URINE ORDER DOT LABORATORY [facility] Acute Care Lab [address] Lab (1st floor, no room number) [place] [address] * Chest XR, PA & LAT [...] 1. Normal head CT. Fam Rodriguez MD [facility] [place] ORDERABLES * (ABNORMAL) Verigene GN Panel [...] MICRO GENER AL ORDERABLES [facility] LABORATORY [facility] Inf. Diseases Diag. Lab [address] [facility], [address] [place] [address], [facility] * (ABNORMAL) Blood Culture Arm, Right (02/22/2024 [...] MICRO GENER AL ORDERABLES [facility] LABORATORY [facility] Inf. Diseases Diag. Lab [address] [facility], [address] [place] [address], [facility] * (ABNORMAL) Magnesium (02/22/2024 1:51 PM CDT) Magnesium 1.5(L) 1.7 - 2.3 mg/dL 02/22/2024 6:19 PM CDT LABORATORY Blood STRUCTURE OF LEFT UPPER LIMB / Unknown Venipuncture / Unknown 02/22/2024 1:51 PM CDT 02/22/2024 2:01 PM CDT La Castaneda PA-C LAB - BLOOD ORDER DOT LABORATORY [facility] Acute Care Lab [address] Lab (1st floor, no room number) [place] [address], [facility] * (ABNORMAL) CBC with platelets and differential (02/22/2024 1:51 PM CDT) [facility] Signature WBC Count 5.1 4.0 - [...] MD LAB - BLOOD ORDER DOT LABORATORY [facility] Acute Care Lab [address] [facility] Lab (1st floor, no room number) [place] [address] * (ABNORMAL) Procalcitonin (02/22/2024 1:51 PM CDT) [...] See Procalcitonin Guidance document for more details. [email or web address]/files/[email or web address]/documents/jrqpa-hmpofbmommltd-eigtqcmw-on-ant ibiot [email or web address].pdf Factors that may affect PCT levels (not [...] Rodriguez MD LAB - BLOOD ORDER DOT [facility] Acute Care Lab [address] [facility] Lab (1st floor, no room number) [place] [address], [facility] * Blood Culture Arm, Left (02/22/2024 1:51 PM CDT) Culture No Growth 02/27/2024 3:32 PM CDT [facility]OR[facility] Blood STRUCTURE OF LEFT UPPER LIMB / Unknown Venipuncture / Unknown 02/22/2024 1:51 PM CDT 02/22/2024 2:01 PM CDT Fam Rodriguez MD LAB - MICRO GENER AL ORDERABLES Performing Organization Address City/[facility]/ZIP Co de Phone Number [facility] LABORATORY [facility] Inf. Diseases Diag. Lab [address] [facility], [address] [place] [address], [facility] * (ABNORMAL) Comprehensive metabolic panel (02/22/2024 1:51 PM CDT) [facility] Sodium 140 135 - 145 mmol/L 02/22/2024 [...] LAB - BLOOD ORDER DOT RH LABORATORY [facility] Acute Care Lab [address] [facility] Lab (1st floor, no room number) [place] [address] * EKG 12-lead, tracing only (02/22/2024 1:20 PM CDT) Systolic Blood Pressure mmHg RADIOLOGY RESULTS Diastolic Blood Pressure mmHg RADIOLOGY RESULTS Ventricular Rate 99 BPM RAD IOLOGY RESULTS Atrial Rate 99 BPM RADIOLOG Y RESULTS SC Interval 198 ms RADIOLOG Y RESULTS QRS Duration 92 ms RADIOLO GY RESULTS QT 372 ms RADIOLOGY RESULTS QTc 477 ms RADIOLOGY RESULTS P [place] 12 degrees RADIOLOGY RESULTS R AXIS 46 degrees RADIOLOGY RESULTS T [place] -16 degrees RADIOLOGY RESULTS Interpretation ECG Sinus rhythm Incomplete right bundle branch block Cannot rule out Anterior infarct , age undetermined Abnormal ECG When compared with ECG of 24-JAN-2006 18:40, Significant changes have occurred Confirmed by - EMERGENCY ROOM, PHYSICIAN (Liliana), team physician ERIN HERNANDEZ (Giorgi) on 02/24/2024 7:24:18 AM [...] Give with food. 0451 ($Given - Provider: Mnoae Lacy RN)1043 ($Given - Provider: Natalie Wynne, [...] provider. documented in this encounter Care Teams Carpenter Packing Relationship Specialty Start Date End Date [facility]- [address] [place] [address] PCP - General 03/29/21 Susan Doshi MD [address], [place] [address] 03/29/21 documented as of this encounter
--- OUTSIDE RECORDS SUMMARY | 2024-04-28 15:16 | XMS_ITS | Continuity of Care Document ---
Author Organization [facility] Address [address] [place] [address] Phone Care Team Providers Care Academic Assistant Name Role Phone Atul Donald MD Unavailable Unavailable Allergies, Adverse Reactions, Alerts Substance Reaction Status Criticality acetaminophen Active No Information Medications Medication Instructions Dosage Effective Dates (start - stop) Status Comments Jennifer-D 24 Hour 180 mg-240 mg tablet,extended release take 1 tablet by oral route every day 1 tablet - Active Advair Diskus 250 mcg-50 mcg/dose powder for inhalation inhale 1 puff by inhalation route 2 times every day in the morning and evening approximately 12 hours apart 1.00 puff - Active albuterol sulfate HFA 90 mcg/actuation aerosol inhaler as needed - Active atenolol 25 mg tablet as needed - Active Procedures Procedure Date Office/Outpatient Visit, New Routine Venipuncture Specimen Handling Rbc Sed Rate, Automated CReactive Protein Dna Antibody, Single Strand Dna Antibody, [place] Nuclear Antigen Antibodies CCP Antibody Rheumatoid Factor, IGM Rheumatoid Factor, IGG, IGA Complement, Antigen Results Test Name Date and Time Measure Units Reference Range Abnormal Flag Status Comments Panel Description: Complement C3 Final Complement C3 12:54:00 135.2 mg/dL 83.0-193.0 Final Panel Description: Complement C4 Final Complement C4 12:54:00 29.7 mg/dL 15.0-57.0 Final Panel Description: ESR Final ESR 12:57:00 10 mm/hr 0-20 Final Panel Description: CRP Final CRP 14:18:00 0.00 MG/DL 0.00-0.60 Final Panel Description: CCP Final cCP 13:21:00 0.8 U/mL 0.0-5.0 Final Panel Description: HEPATITIS B SURFACE ANTIGEN W /REFL CONFIRM Final HEPATITIS B SURFACE ANTIGEN 14:11:00 NON-REACTI VE NON-REACTIVE N Final For additional information, please refer to http://educati on.[employer].multiBIND biotec/faq/ XGR025 (This link is being provided for informational/ educational purposes only.) Panel Description: HEPATITIS C AB W/REFL TO HCV RNA, QN, PCR Final HEPATITIS C ANTIBODY 14:11:00 NON-REACTI VE NON-REACTIVE N Final HCV antibody was non-reactive. There is no laboratory evidence of HCV infection. In most cases, no further action is required. However,if recent HCV exposure is suspected, a test for HCV RNA(test code 69763) is suggested. For additional information please refer tohttp://educa tion.Mine.multiBIND biotec/fa q/RUR63l2(This link is being provided for informational/ educational purposes only.) Panel Description: RF/3 Final RF IgM 15:42:00 2.0 IU/mL 0.0-25.0 Final RF IgA 15:42:00 4.0 Units/mL 0.0-35.0 Final RF IgG 15:42:00 13.0 Units/mL 0.0-20.0 Final Panel Description: VERONIQUE 9 Final ssDNA 12:28:00 3.0 U/mL 0.0-99.0 Final Negative 0 - 99 Units/mL Equivocal Range 100 - 200 Units/mLPositi ve >200 Units/mL dsDNA 12:28:00 0.0 IU/mL 0.0-40.0 BL Final Negative 0 - 40 IU/mL Equivocal 41 - 81 IU/mL Positive >81 IU/mL Sm (Patel) 12:28:00 0.0 U/mL 0.0-89.0 Final PROJECT MANAGER/TEAM COACH/SM 12:28:00 3.0 U/mL 0.0-83.0 Final SS-A 12:28:00 40.0 U/mL 0.0-91.0 Final SS-B 12:28:00 4.0 U/mL 0.0-73.0 Final Chromatin 12:28:00 10.0 U/mL 0.0-99.0 Final Scl-70 12:28:00 0.0 U/mL 0.0-32.0 Final Centromere ab 12:28:00 0.0 U/mL 0.0-100.0 Final Advance Directives Directive Yes / No Effective Date File Name No Information Encounters Encounter Description Practice Location Reason(s) For Visit Diagnoses Date Provider Providers Copied on Encounter Office/Outpa tient Visit, [facility], [address], [place], [address], [place] tel:[phone] [facility], sicca symptoms (chief complaint) Dry eye syndrome of bilateral lacrimal glandsPain 4 Odilon Pollard. [facility] [address], [place], [address], [place]. tel:[phone] Referring Provider: Atul Crisostomo, [facility] [address], [place], [address]. tel:[phone] Family History Family Member Type Diagnosis Age At Onset Problem No family history of Lupus e rythematosus Payers Payer name Insurance type Covered alliance party ID Authoriza tizhanna(s) Ifrah CI [id number] Social History Type Description Quantity Date Captured Comments Alcohol Use Details No Caffeine Use Details Unknown Tobacco Use Status Current non-smoker Smoking Status Never smoker Non-Smoking Tobacco Use Details : No Details Available : No Details Available Sex Female Vital Signs Date / Time: Height Weight BMI Pulse Rate Blood Pressure Temperature Respiratory Rate Body Surface Area Head Circumference Head Circ. Percentile Wt./Justin. Percentile BMI percentile Pulse Ox Inhaled Ox 10:49 AM 66.14 in 74.843 kg (165.00 lbs) 26.5 2 kg/m eter (2) 117/65 mm[Hg] 97.60 F Chief Complaint And Reason For Visit From encounter dated '03/17/2024 10:30'. sicca symptoms (chief complaint) Reason For Referral Reason For Referral No Information History Of Present Illness Encounter Date Complaint History Of Prese nt Illness sicca symptoms Functional Status Date Functional Assessmen t Pain Score 6/10 Instructions Date Instruction Additional Infor mation No Information Assessments Type Assessment Date assessment Dry eye syndrome of bilateral la crimal glands assessment Pain Patient Care Teams Name Effective Dates (start - stop) Status Members No Information
--- OUTSIDE RECORDS SUMMARY | 2024-04-28 15:16 | XMS_ITS | Encounter Summary ---
Author Organization [facility] Address [address] [place] [address] Care Team Providers Care Tile And Marble Setter Name Role Phone [facility]- Primary Care Provider Susan Doshi MD Unavailable [...] on filedocumented in this encounter Care Teams Tile And Marble Setter Relationship Specialty Start Date End Date [facility]- [address] [place] [address] PCP - General 03/29/21 Susan Doshi MD [address] [place] [address] 03/29/21 documented as of this encounter
== END 2024-04-28 15:13 | disposition home or self-care (01) ==
PROVIDERS: PCP Family Medicine; Visit Provider Otolaryngology
DX: E04.1 Nontoxic single thyroid nodule (principal); R51.9 Headache, unspecified
CPT/HCPCS: 84132; 84295; 84443

== ENCOUNTER 2024-04-30 10:03 | Outpatient (CLI) | payer OTHER, SELFPAY ==
--- OUTSIDE RECORDS SUMMARY | 2024-04-30 10:12 | XMS_ITS | Continuity of Care Document ---
Author Organization [facility] Address [address] [place] [address] Phone Care Team Providers Care Group Product Manager Name Role Phone Atul Donald MD [...] Protein Dna Antibody, Single Strand Dna Antibody, [place] Nuclear Antigen Antibodies CCP Antibody Rheumatoid Factor, [...] For additional information, please refer to http://educati on.Hole [employer]/faq/ HEV673 (This link is being provided for informational/ educational purposes only.) Panel Description: HEPATITIS C AB W/REFL TO HCV RNA, QN, PCR Final HEPATITIS C ANTIBODY 14:11:00 NON-REACTI VE NON-REACTIVE N Final HCV antibody was non-reactive. There is no laboratory evidence of HCV infection. In most cases, no further action is required. However,if recent HCV exposure is suspected, a test for HCV RNA(test code 03998) is suggested. For additional information please refer tohttp://educa tion.[employer]/fa q/XRT11a8(This link is being provided for informational/ educational [...] Sm (Patel) 12:28:00 0.0 U/mL 0.0-89.0 Final SCHOOL COOK/SM 12:28:00 3.0 U/mL 0.0-83.0 Final SS-A 12:28:00 [...] [facility], [address], [place], [address], [place] tel:[phone] [facility], sicca symptoms (chief complaint) Dry eye syndrome of bilateral lacrimal glandsPain 4 Odilon Pollard. [facility] [address], [place], [address], [place]. tel:[phone] Referring Provider: Atul Crisostomo, [facility] [address], [place], [address]. tel:[phone] Family History Family Member Type Diagnosis Age At Onset Problem No family history of Lupus e rythematosus Payers Payer name Insurance type Covered constitution party ID Authoriza tizhanna(s) Ifrah CI [id number] Social History Type Description Quantity Date Captured [...]
== END 2024-04-30 10:04 | disposition home or self-care (01) ==
PROVIDERS: PCP Family Medicine; Visit Provider Family Medicine
DX: R53.83 Other fatigue (principal); R23.2 Flushing; F41.9 Anxiety disorder, unspecified; A41.9 Sepsis, unspecified organism
CPT/HCPCS: 80053; 82671; 83001; 83002; 84144

== ENCOUNTER 2024-05-06 12:51 | Outpatient (CLI) | payer OTHER, SELFPAY ==
--- OUTSIDE RECORDS SUMMARY | 2024-05-06 12:57 | XMS_ITS | Encounter Summary ---
Author Organization [facility] Address [address] [place] [address] Care Team Providers Care Advertising Layout Worker Name Role Phone [facility]- Primary Care Provider Susan Doshi MD Unavailable [...] on filedocumented in this encounter Care Teams Advertising Layout Worker Relationship Specialty Start Date End Date [facility]- [address] [place] [address] PCP - General 03/29/21 Susan Doshi MD [address] [place] [address] 03/29/21 documented as of this encounter
--- OUTSIDE RECORDS SUMMARY | 2024-05-06 12:57 | XMS_ITS | Referral Summary ---
Author Organization [facility] Address [address] [place] [address] Care Team Providers Care Contract Negotiation Manager Name Role Phone [facility]- Primary Care Provider Susan Doshi MD Unavailable Unavailable Encounters Date Type Department Care Team Description 02/22/2024 12:20 PM CDT - 02/25/2024 2:10 PM CDT Hospital Encounter [facility] Observation Dept [address] [place] [address] Fam Rodriguez MD Abdissa, Mesfin E, MD [...] - BLOOD ORDERABL ES Performing Organization Address City/[facility]/ZIP Co de Phone Number [facility] Acute Care Lab [address] Lab (1st floor, no room number) [address] * Magnesium (02/25/2024 7:04 AM CDT) Only the most recent of4 resultswithin the time period is included. Magnesium 2.0 1.7 - 2.3 mg/dL 02/25/2024 7:52 AM CDT RH LABORATORY Blood STRUCTURE OF LEFT UPPER LIMB / Unknown Venipuncture / Unknown 02/25/2024 7:04 AM CDT 02/25/2024 7:21 AM CDT Socrates Bay MD LAB - BLOOD ORDERABL ES [facility] Acute Care Lab [address] Lab (1st floor, no room number) [place] [phone] * (ABNORMAL) Basic metabolic panel (02/25/2024 7:04 AM CDT) Only the most recent of3 resultswithin the time period is included. [facility] Signature Sodium 142 135 - 145 mmol/L [...] MD LAB - BLOOD ORDERABL ES LABORATORY [facility] Acute Care Lab [address] Lab (1st floor, no room number) [place] [address], [facility] * (ABNORMAL) Procalcitonin (02/24/2024 5:50 AM CDT) [...] See Procalcitonin Guidance document for more details. [email or web address].for[[email or web address]/[email or web address]/[email or web address]-npesfqovysdgf-[email or web address]-on-ant ibiot [email or web address].pdf Factors that may affect PCT levels (not [...] MD LAB - BLOOD ORDERABL ES LABORATORY [facility] Acute Care Lab [address] Lab (1st floor, no room number) [place] [address] * (ABNORMAL) CBC with platelets (02/24/2024 [...] MD LAB - BLOOD ORDERABL ES LABORATORY [facility] Acute Care Lab [address] Lab (1st floor, no room number) [place] [address], [facility] * Lactic acid whole blood (02/22/2024 11:47 PM CDT) Lactic Acid 0.9 0.7 - 2.0 mmol/L 02/22/2024 11:51 PM CDT LABORATORY Blood STRUCTURE OF LEFT HAND / Unknown Venipuncture / Unknown 02/22/2024 11:47 PM CDT 02/22/2024 11:49 PM CDT La CUMMINGS-C LAB - BLOOD ORDER DOT Performing Organization Address [facility]/ZIP Co de Phone Number LABORATORY [facility] Lab [address] Lab (1st floor, no room number) [address] * (ABNORMAL) CRP inflammation (02/22/2024 10:32 PM CDT) CRP Inflammation 42.29(H) <5.00 mg/L 02/22/2024 10:58 PM CDT LABORATORY Blood STRUCTURE OF LEFT UPPER LIMB / Unknown Venipuncture / Unknown 02/22/2024 10:32 PM CDT 02/22/2024 10:37 PM CDT La [facility] LAB - BLOOD ORDER DOT Performing Organization Address [facility] Co de Phone Number [facility] Lab [address] Lab (1st floor, no room number) [address] * Blood Culture Arm, Left (02/22/2024 10:32 PM CDT) Only the most recent of4 resultswithin the time period is included. Culture No Growth 02/28/2024 1:05 AM CDT [facility] LAB[facility]ATORY Blood STRUCTURE OF LEFT UPPER LIMB / Unknown Venipuncture / Unknown 02/22/2024 10:32 PM CDT 02/22/2024 10:37 PM CDT La Castaneda PA-C LAB - MICRO GENER AL ORDERABLES [facility] LABORATORY [facility] Inf. Diseases Diag. Lab [address] [facility], [address] [place] [address], [facility] * (ABNORMAL) Lactic Acid Whole Blood w/ 1x repeat in 2 hrs when >2 (02/22/2024 10:02 PM CDT) Lactic Acid, Initial 2.4(H) 0.7 - 2.0 mmol/L 02/22/2024 10:07 PM CDT LABORATORY Blood STRUCTURE OF LEFT HAND / Unknown Venipuncture / Unknown 02/22/2024 10:02 PM CDT 02/22/2024 10:05 PM CDT La Castaneda PA-C LAB - BLOOD ORDER DOT LABORATORY [facility] Acute Care Lab [address] Lab (1st floor, no room number) [place] [address], [facility] * (ABNORMAL) UA with Microscopic (02/22/2024 7:06 PM CDT) Color Urine Charlotte(A) Colorless, Straw, Light Yellow, Yellow 02/22/2024 7:42 PM CDT LABORATORY Appearance Urine Slightly Cloudy(A) Clear 02/22/2024 7:42 PM CDT RH LABORATORY Glucose Urine Negative Negative mg/dL 02/22/2024 7:42 PM CDT LABORATORY Bilirubin Urine Negative Negative 7:42 PM CDT RH LABORATORY Ketones Urine Negative Negative mg/dL 02/22/2024 7:42 PM CDT LABORATORY Specific [place] Urine 1.018 1.003 - 1.035 02/22/2024 7:42 [...] PA-C LAB - URINE ORDER DOT LABORATORY [facility] Acute Care Lab [address] [facility] Lab (1st floor, no room number) [place] [address] * (ABNORMAL) Urine Culture (02/22/2024 7:06 [...] MICRO GENER AL ORDERABLES [facility] LABORATORY [facility] Inf. Diseases Diag. Lab [address] [facility], [address] [place] [address], [facility] * Chest XR, PA & LAT (02/22/2024 2:34 PM CDT) Anatomical Region Laterality Modality Chest Digital Radiogra phy 02/22/2024 2:34 PM CDT Impressions 02/22/2024 3:01 PM CDT IMPRESSION: Negative chest. Narrative 02/22/2024 3:01 PM CDT EXAM: XR CHEST 2 VIEWS LOCATION: [facility] DATE: 02/22/2024 INDICATION: rigors, recent surgery, ? PNA COMPARISON: 04/08/2023 Procedure Note Pantera Soriano MD - 02/22/2024 EXAM: XR CHEST 2 VIEWS LOCATION: [facility] DATE: 02/22/2024 INDICATION: rigors, recent surgery, [...] CDT EXAM: CT HEAD W/O CONTRAST LOCATION: [facility] DATE: 02/22/2024 INDICATION: recent rhinoplasty, ? [...] 02/22/2024 EXAM: CT HEAD W/O CONTRAST LOCATION: [facility] DATE: 02/22/2024 INDICATION: recent rhinoplasty, ? [...] LABORATORY Comment:Positive for Klebsie lla oxytoca by Goojitsuigene multiplex nucleic acid test. Final identification and [...] 02/23/2024 9:59 AM CDT Specimen tested with Goojitsuigene multiplex, gram-negative blood culture nucleic acid test for the following targets: Acinetobacter species, Citrobacter species, Enterobacter species, Proteus species, Escherichia coli, Klebsiella pneumoniae, Klebsiella oxytoca, Pseudomonas aeruginosa, and the following resistance markers: CTX-M, KPC, NDM, VIM, IMP and OXA. Fam Rodriguez MD LAB - MICRO GENER AL ORDERABLES [facility] LABORATORY [facility] Inf. Diseases Diag. Lab [address] [facility], [address] [place] [address] * (ABNORMAL) Comprehensive metabolic panel (02/22/2024 1:51 PM CDT) [facility] Sodium 140 135 - 145 mmol/L 02/22/2024 [...] LAB - BLOOD ORDER DOT RH LABORATORY [facility] Acute Care Lab [address] Lab (1st floor, no room number) [place] [address] * EKG 12-lead, tracing only (02/22/2024 1:20 PM CDT) Systolic Blood Pressure mmHg RADIOLOGY RESULTS Diastolic Blood Pressure mmHg RADIOLOGY RESULTS Ventricular Rate 99 BPM RAD IOLOGY RESULTS Atrial Rate 99 BPM RADIOLOG Y RESULTS NC Interval 198 ms RADIOLOG Y RESULTS QRS Duration 92 ms RADIOLO GY RESULTS QT 372 ms RADIOLOGY RESULTS QTc 477 ms RADIOLOGY RESULTS P [place] 12 degrees RADIOLOGY RESULTS R AXIS 46 degrees RADIOLOGY RESULTS T [place] -16 degrees RADIOLOGY RESULTS Interpretation ECG Sinus rhythm Incomplete right bundle branch block Cannot rule out Anterior infarct , age undetermined Abnormal ECG When compared with ECG of 24-JAN-2006 18:40, Significant changes have occurred Confirmed by - EMERGENCY ROOM, PHYSICIAN ([id number]), medical editor ERIN HERNANDEZ (Giorgi) on 02/24/2024 7:24:18 AM RADIOLOGY RESULTS 02/22/2024 1:20 PM CDT 02/24/2024 7:24 AM CDT Adan Pitt MD ECG ORDERABLES RADIOLOGY RESULTS from Last 3 Months Advance Directives For more information, please contact: [phone] * Full Code (Latest Code Status on File) Date Activated Date Inactivated Comments 02/22/2024 5:56 PM 02/25/2024 4:10 PM All basic an d advanced life-sustaining interventions are performed as appropriate Question Answer Comments Code status determined by: Discussion with hope nt/ legal decision maker Care Teams Contract Negotiation Manager Relationship Specialty Start Date End Date [facility]- [address] [place] [address] PCP - General 03/29/21 Susan Doshi MD [address] [place] [address] 03/29/21
--- OUTSIDE RECORDS SUMMARY | 2024-05-06 12:57 | XMS_ITS | Continuity of Care Document ---
Author Organization [facility] Address [address] [place] [address] Phone Care Team Providers Care Lithographic Camera Operator Name Role Phone Atul Donald MD Unavailable Unavailable Allergies, Adverse Reactions, Alerts Substance Reaction Status Criticality acetaminophen Active No Information Medications Medication Instructions Dosage Effective Dates (start - stop) Status Comments atenolol 25 mg tablet as needed - Active albuterol sulfate HFA 90 mcg/actuation aerosol inhaler as needed - Active Advair Diskus 250 mcg-50 mcg/dose powder for inhalation inhale 1 puff by inhalation route 2 times every day in the morning and evening approximately 12 hours apart 1.00 puff - Active Jennifer-D 24 Hour 180 mg-240 mg tablet,extended release take 1 tablet by oral route every day 1 tablet - Active Procedures Procedure Date Office/Outpatient Visit, New Routine Venipuncture Specimen Handling Rbc Sed Rate, Automated CReactive Protein Dna Antibody, Single Strand Dna Antibody, Solomon Nuclear Antigen Antibodies CCP Antibody Rheumatoid Factor, [...] For additional information, please refer to http://educati on.Silicon [employer].PicRate.Me/faq/ [email or web address] (This link is being provided for informational/ educational purposes only.) Panel Description: HEPATITIS C AB W/REFL TO HCV RNA, QN, PCR Final HEPATITIS C ANTIBODY 14:11:00 NON-REACTI VE NON-REACTIVE N Final HCV antibody was non-reactive. There is no laboratory evidence of HCV infection. In most cases, no further action is required. However,if recent HCV exposure is suspected, a test for HCV RNA(test code 42271) is suggested. For additional information please refer tohttp://educa tion.Favor.PicRate.Me/fa q/SRC32w9(This link is being provided for informational/ educational [...] Sm (Patel) 12:28:00 0.0 U/mL 0.0-89.0 Final HEDIS ABSTRACTOR/SM 12:28:00 3.0 U/mL 0.0-83.0 Final SS-A 12:28:00 [...] [facility], [address], [place], [address], [place] tel:[phone] [facility], sicca symptoms (chief complaint) Dry eye syndrome of bilateral lacrimal glandsPain 4 Odilon Pollard. [facility] [address], [place], [address], [place]. tel:[phone] Referring Provider: Atul Crisostomo, [facility] [address], [place], [address]. tel:[phone] Family History Family Member Type Diagnosis Age At Onset Problem No family history of Lupus e rythematosus Payers Payer name Insurance type Covered green party ID Authoriza tizhanna(s) Ifrah CI [id number] Social History Type Description Quantity Date Captured [...]
--- OUTSIDE RECORDS SUMMARY | 2024-05-06 12:57 | XMS_ITS | Encounter Summary ---
Author Organization [place] Address [address] [place] [id number] Care Team Providers Care Milk Collector Name Role Phone [facility]- Primary Care Provider Susan Doshi MD Unavailable Unavailable Reason for Visit * Reason Comments Syncope * Auth/Cert (Routine) Specialty Diagnoses / Procedures Referred By Anabelle mendoza Referred To Contact Med Surg Diagnoses Hypokalemia History of nasal septoplasty Recurrent syncope Hypokalemia Recurrent syncope History of nasal septoplasty Observation Dept [address] [place] [address] Referral ID Status Reason Start Date Expiration Date Visits Re quested Visits Authorized [id number] 1 1 Encounter Details Date Type Department Care Team (Late st Contact Info) Description 02/22/2024 12:20 PM CDT - 02/25/2024 2:10 PM CDT Hospital Encounter [facility] Observation Dept [address] [place] [address] Fam Rodriguez MD [facility] [address] [place], [place] [address] Socrates Bay MD [address] [place] [address] Bacteremia (Primary Dx); Hypokalemia; Recurrent [...] Bravo MD - 02/25/2024 1:41 PM CDT [facility] Hospitalist Discharge Summary Date of Admission: [...] the setting of recent septoplasty yesterday at [facility]. Pt states she underwent septoplasty and some [...] tonic clonic like description. They called the client service representative to bring her to ED. Work up [...] surgery was on 02/20 - was at [facility] (Dr. Mueller) Electrolyte imbalance - hypokalemia, [...] [facility] OBSERVATION DEPT [address] [facility] [address] Physical Exam Vital Signs: Temp: 97.8 ??F (36.6 ??C) Temp src: Axillary BP: 117/72 Pulse: 54 Resp: 20 SpO2: 96 % O2 Device: None (Room air) Weight: 166 lbs 0 oz See note Primary Care Physician [facility] Discharge Orders Reason for your hospital [...] Narrative EXAM: XR CHEST 2 VIEWS LOCATION: [facility] DATE: 02/22/2024 INDICATION: rigors, recent surgery, ? PNA COMPARISON: 04/08/2023 Impression IMPRESSION: Negative chest. Head CT w/o contrast Narrative EXAM: CT HEAD W/O CONTRAST LOCATION: [facility] DATE: 02/22/2024 INDICATION: recent rhinoplasty, ? [...] encounter Progress Notes * Janki Bliss APRN CORE OVEN TENDER - 02/25/2024 1:24 PM CDT [facility] ACUTE PAIN SERVICE [facility] PAIN Progress Note Assessment/Plan: Tenzin Fortune is [...] Constipation Prophylaxis: Scheduled and prn: Senna-docusate -[place] SAL[employer] ATTEND[employer]ILD[employer] pulled from system on 02/25/2024. This indicates [...] Provider's location during the visit: [facility] Principal Problem: <principal problem not specified> [...] Saha APRNP-C Acute Care Pain Management Program [facility] Saturday-Saturday 8a-4p Page via Mountvacation or Nevigoaging * Paulina Franco MD - 02/25/2024 1:05 PM CDT Images from the original note were not included. 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 Pt states she underwent septoplasty and some [...] 10 mg Oral Daily Berkley Pichardo APRN CORE OVEN TENDER 10 mg at 02/25/24 0830 fluticasone-vilanterol (BREO ELLIPTA) 100-25 MCG/ACT inhaler 1 puff 1 puff Inhalation BID Tonja Manriquez PA-C 1 puff at 02/25/24 0830 ibuprofen (ADVIL/MOTRIN) tablet 800 mg 800 mg Oral Q6H Berkley Pichardo APRN CORE OVEN TENDER 800 mg at02/25/24 0830 lidocaine (XYLOCAINE) 5 [...] 0.75 02/22/2024223102/25/2024 0106 Blood Culture Arm, Left [[id number]] Blood from Arm, Left Preliminary result Component Value Culture No growth after 2 days P 02/22/2024223102/25/2024 0106 Blood Culture Arm, Left [[id number]] Blood from Arm, Left Preliminary result Component Value Culture No growth after 2 days P 02/22/2024 1906 02/24/2024 0748 Urine Culture [[id number]] (Abnormal) Urine, Midstream Final result Component Value [...] 1357 02/25/2024 0753 Blood Culture Arm, Right [[id number]] (Abnormal) Blood from Arm, Right Final result [...] Bravo MD - 02/25/2024 11:35 AM CDT [facility] Medicine Progress Note - Hospitalist Service Date of Admission: 02/22/2024 Assessment & Plan Tenzin Fortune is a 43 year old female with past medical history significant for 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 Found to have Klebsiella bacteremia Acute postoperative [...] surgery was on 02/20 - was at [facility] (Dr. Mueller) Electrolyte imbalance - hypokalemia, [...] Anticipated Tomorrow Jamil Bravo MD Hospitalist Service [facility] Securely message with Cue (more info) Text page via [employer] Paging/Directory Interval History Patient feeling better. No [...] from the original note were not included. [facility] Hospitalist Progress Note Socrates Bay [...] the setting of recent septoplasty 02/20 at [facility]. Pt states she underwent septoplasty and some [...] tonic clonic like description. They called the client service representative to bring her to ED. Work up [...] --Surgery is done by ENT physician at [facility] and was sent home the same [...] case, Dr Mueller ,her ENT doctor (telephone #[phone]) can arrange clinic appointment in the morning to remove the pack. If in case patient is not able to discharge tomorrow and needs to stay in the hospital for IV antibiotics, ENT physician consultation needs to be requested to remove the pack since Dr Mueller does not have privileges to come to [facility] Interval History (Subjective): Patient is seen [...] Narrative EXAM: CT HEAD W/O CONTRAST LOCATION: [facility] DATE: 02/22/2024 INDICATION: recent rhinoplasty, ? [...] Narrative EXAM: XR CHEST 2 VIEWS LOCATION: [facility] DATE: 02/22/2024 INDICATION: rigors, recent surgery, [...] from the original note were not included. [facility] Hospitalist Progress Note Socrates Bay [...] the setting of recent septoplasty 02/20 at [facility]. Pt states she underwent septoplasty and some [...] tonic clonic like description. They called the client service representative to bring her to ED. Work up [...] --Surgery is done by ENT physician at [facility] and was sent home the same [...] Narrative EXAM: XR CHEST 2 VIEWS LOCATION: [facility] DATE: 02/22/2024 INDICATION: rigors, recent surgery, [...] Would recommend contacting him tomorrow if needed [phone] Dr. 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 Pt states she underwent septoplasty and some [...] tonic clonic like description. They called the client service representative to bring her to ED. Work up [...] spasms, likely contributed by n/v - Resume TEAM MEMBER Flexeril #Hypomagnesemia # Hypokalemia: Lowest K = [...] 02/23/2024 La Castaneda PA-C Primary Care Physician [facility] Chief Complaint N/v and syncope History is [...] the setting of recent septoplasty yesterday at [facility]. Pt states she underwent septoplasty and some [...] tonic clonic like description. They called the client service representative to bring her to ED. Work up [...] Narrative EXAM: CT HEAD W/O CONTRAST LOCATION: [facility] DATE: 02/22/2024 INDICATION: recent rhinoplasty, ? [...] Narrative EXAM: XR CHEST 2 VIEWS LOCATION: [facility] DATE: 02/22/2024 INDICATION: rigors, recent surgery, ? PNA COMPARISON: 04/08/2023 Impression IMPRESSION: Negative chest. Recent Labs Lab 02/22/24 1351 WBC 5.1 HGB 11.3* MCV 90 PLT 117* NA 140 POTASSIUM 2.9* CHLORIDE 107 CO2 20* BUN 10.4 CR 0.76 ANIONGAP 13 MERISSA 8.2* GLC 107* ALBUMIN 3.8 PROTTOTAL 5.5* BILITOTAL 1.2 ALKPHOS 67 ALT 18 AST 36 La Castaneda PA-C [facility] Medicine February 22, 2024 Securely message with the [employer] Console (learn more here) Text page via [facility] Paging/Directory Associated attestation - Socrates Bay [...] Bergman MD Page: * Berkley Pichardo, KAYLA CORE OVEN TENDER - 02/24/2024 10:00 AM CDTAssociated Order(s): PAIN MANAGEMENT ADULT IP CONSULT [facility] ACUTE INPATIENT PAIN SERVICE [facility] PAIN Consult Assessment/Plan: Tenzin Fortune is a 43 year old female who was admitted on 02/22/2024. I was asked by Dr. Phu emmanuel the patient for pain after septoplasty. Admitted for shaking. History of asthma, PVCs, chronic back pain from arthritis. 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 Notes pain is better. Ears feel [...] Patient Hospital Room Distant Location (provider location): [place] Reason for Televisit: Pain Consult Mode of Communication: Video Conference via WellApps Physician has received verbal consent for a [...] activities per the note. Berkley Pichardo APRN, SLURRY WORKER-BC, CORE OVEN TENDER Acute Care Pain Management Program Hours of pain coverage Mon-Fri 8-1600, afterhours please call the electrician helper powerhouse [facility] ([place], [place], [place], [place]) Page via Superhuman console -Click for Cue * Phill Francis MD - 02/23/2024 11:02 AM CDTAssociated Order(s): INFECTIOUS DISEASES IP CONSULT [facility] Infectious Disease Consultation Date of Admission: [...] recent septoplasty a day before presentation at [facility]. Pt states she underwent septoplasty and some [...] patient for shaking chills. Primary Care Physician [facility] Chief Complaint Shaking chills History is obtained [...] Cardona RN - 02/22/2024 2:05 PM CDT [facility] ED Nurse Handoff Report ED Chief complaint: Syncope . ED Diagnosis: Final diagnoses: None Allergies: Allergies Allergen Reactions Acetaminophen Acetaminophen Headache Other Environmental Allergy Nickel Latex Rash Code Status: Full Code Activity level - Baseline/Home: independent. Activity Level - Current: assist of 1. Lift room needed: No. Bariatric: No Geophysical Engineer Needed: No Isolation: No. Infection: Not Applicable. [...] Pressure Ventricular Rate 99 Atrial Rate 99 TX Interval 198 QRS Duration 92 QT 372 QTc 477 P Rison 12 R AXIS 46 T Rison -16 Interpretation ECG Sinus rhythm Incomplete right [...] significant for recent septal/rhinoplasty 2 days ago [facility] presenting here for rigors as well [...] 02/22/2024 to document services personally performed by aFm Rodriguez MD based on my observations and [...] with patient/family: sent to [facility] in [place] Discharged with spouse Follow up with ENT [...] AM CDT Goal Outcome Evaluation: Care from 5110-3050 Inpatient Progress Note: For complete assessment see [...] Taken 02/24/2024 1131 by Maria Luisa Todd, personal banking representative Interventions: medication (see MAR) Goal: Readiness for Transition of Care Outcome: Progressing Problem: Infection Goal: Absence of Infection Signs and Symptoms Outcome: Progressing * Plan of Care - Monae Lacy RN - 02/24/2024 3:08 AM CDT Care from 5377-6219 Inpatient Progress Note:Syncope, Nausea and Vomiting For [...] * Pharmacy-Vancomycin Dosing Service - Autumn Sales, [facility] - 02/23/2024 9:55 AM CDT Pharmacy Vancomycin [...] Note to Pharmacy: For [facility], [facility] and [facility]: For Zosyn-naive patients, use the Zosyn initial dose + extended infusion order panel. 3.375 g over 30 Minutes Intravenous EVERY 8 HOURS 02/22/24 2220 02/22/24 1753 ibuprofen (ADVIL/MOTRIN) tablet 600 mg Note to Pharmacy: TEAM MEMBER Sig:Take 600 mg by mouth every 6 [...] at 09:35 AM MECHANISM OF PROVIDER NOTIFICATION: Csky-Iz-Nbcg PROVIDER RESPONSE: ID consulted and patient on antibiotics already. * Provider Notification - Natalie Wynne RN - 02/23/2024 8:10 AM CDT Notified by tele marketing executive that patient was sustaining HR 44-48 for [...] Flowsheet Documentation Taken 02/22/20242201 by Mimi Cardona RNpersonal banking representative Interventions: cold applied repositioned rest Taken 02/22/2024 1753 by Mimi Cardona RNpersonal banking representative Interventions: cold applied repositioned rest quiet environment [...] at 10:11 PM MECHANISM OF PROVIDER NOTIFICATION: eBillme WEB PAGE PROVIDER RESPONSE: NEW ORDERS ENTERED [...] Axel Oneal - 02/22/2024 3:17 PM CDT Machine Veneer Repairer Admission Medication History Admission medication history is complete. The information provided in this note is only as accurateas the sources available at the time of the update. Information Source(s): Patient and CareEverywhere/SureScripts via in-person Pertinent Information: NONE Changes made to TEAM MEMBER medication list: Added: WHOLE LIST Deleted: None Changed: OXYCODONE Allergies reviewed with patient and updates made in EHR: yes Medication History Completed By: Axel Oneal 02/22/2024 3:17 PM TEAM MEMBER Med List Medication Sig Last Dose albuterol [...] personally see the patient, to my knowledgethe international specialist has compiled the TEAM MEMBER medication list to the best of their ability given the information available at the time. Changed Flovent Diskus to Advair. Mars Perdomo [facility] TEAM MEMBER Med List Medication Sig Last Dose albuterol [...] MD LAB - BLOOD ORDERABL ES LABORATORY [facility] Acute Care Lab [address] [facility] Lab (1st floor, no room number) [place] [address] * (ABNORMAL) Basic metabolic panel [...] MD LAB - BLOOD ORDERABL ES LABORATORY [facility] Acute Care Lab [address] Lab (1st floor, no room number) [address] * Magnesium (02/25/2024 7:04 AM CDT) Magnesium 2.0 1.7 - 2.3 mg/dL 02/25/2024 7:52 AM CDT LABORATORY Blood STRUCTURE OF LEFT UPPER LIMB / Unknown Venipuncture / Unknown 02/25/2024 7:04 AM CDT 02/25/2024 7:21 AM CDT Socrates Bay MD LAB - BLOOD ORDERABL ES Performing Organization Address [facility] Co de Phone Number [facility] Acute Care Lab [address] Lab (1st floor, no room number) [address] * (ABNORMAL) Procalcitonin (02/24/2024 5:50 AM [...] See Procalcitonin Guidance document for more details. https://[employer]/files/fairview/documents/sjaob-cvgsjrovosvwg-hgbjovfo-on-ant ibiot [email or web address].pdf Factors that may affect PCT levels (not [...] MD LAB - BLOOD ORDERABL ES LABORATORY [facility] Acute Care Lab [address] [facility] Lab (1st floor, no room number) [place] [address], [facility] * (ABNORMAL) Basic metabolic panel (02/24/2024 5:50 AM CDT) [facility] Sodium 140 135 - 145 mmol/L 02/24/2024 [...] MD LAB - BLOOD ORDERABL ES LABORATORY [facility] Acute Care Lab [address] [facility] Lab (1st floor, no room number) [place] [address], [facility] * (ABNORMAL) CBC with platelets [...] Bay MD LAB - BLOOD ORDERABL ES [facility] Care Lab [address] Lab (1st floor, no room number) [place] [phone] [place] [address] * Magnesium (02/24/2024 5:50 AM CDT) Magnesium 1.9 1.7 - 2.3 mg/dL 02/24/2024 6:38 AM CDT RH LABORATORY Blood STRUCTURE OF LEFT UPPER LIMB / Unknown Venipuncture / Unknown 02/24/2024 5:50 AM CDT 02/24/2024 6:02 AM CDT Socrates Bay MD LAB - BLOOD ORDERABL ES [facility] Acute Care Lab [address] Lab (1st floor, no room number) [place] [address] * (ABNORMAL) Procalcitonin (02/23/2024 5:28 AM CDT) [facility] Procalcitonin 6.93(HH) <0.50 ng/mL 02/23/2024 9:24 AM [...] See Procalcitonin Guidance document for more details. https://[employer]/files/fairview/documents/bcbzl-newdvfizdslzj-lcisieif-on-ant ibiot [email or web address].pdf Factors that may affect PCT levels (not [...] - BLOOD ORDERABL ES Performing Organization Address [facility]/ZIP Co de Phone Number LABORATORY [facility] Acute Care Lab [address] Lab (1st floor, no room number) [place] [phone] [place] [address] * Magnesium (02/23/2024 5:28 AM CDT) Magnesium 1.8 1.7 - 2.3 mg/dL 02/23/2024 6:55 AM CDT RH LABORATORY Blood STRUCTURE OF LEFT HAND / Unknown Venipuncture / Unknown 02/23/2024 5:28 AM CDT 02/23/2024 5:31 AM CDT Socrates Bay MD LAB - BLOOD ORDERABL ES Performing Organization Address [facility]/ZIP Co de Phone Number LABORATORY [facility] Acute Care Lab [address] Lab (1st floor, no room number) [address] [place] [address] * (ABNORMAL) CBC with platelets (02/23/2024 5:28 [...] GUADARRAMA LAB - BLOOD ORDER DOT LABORATORY [facility] Acute Care Lab [address] Lab (1st floor, no room number) [place] [address] * (ABNORMAL) Basic metabolic panel (02/23/2024 [...] LAB - BLOOD ORDER DOT RH LABORATORY [facility] Acute Care Lab [address] Lab (1st floor, no room number) [place] [phone] [place] [address] * Lactic acid whole blood (02/22/2024 11:47 PM CDT) Lactic Acid 0.9 0.7 - 2.0 mmol/L 02/22/2024 11:51 PM CDT RH LABORATORY Blood STRUCTURE OF LEFT HAND / Unknown Venipuncture / Unknown 02/22/2024 11:47 PM CDT 02/22/2024 11:49 PM CDT La CUMMINGS-C LAB - BLOOD ORDER DOT Performing Organization Address City/[facility]/ZIP Co de Phone Number RH LABORATORY [facility] Acute Care Lab [address] Lab (1st floor, no room number) [address] * (ABNORMAL) CBC with platelets and [...] PA-C LAB - BLOOD ORDER DOT LABORATORY [facility] Acute Care Lab [address] Lab (1st floor, no room number) [place] [address] * (ABNORMAL) CRP inflammation (02/22/2024 10:32 PM CDT) CRP Inflammation 42.29(H) <5.00 mg/L 02/22/2024 10:58 PM CDT RH LABORATORY Blood STRUCTURE OF LEFT UPPER LIMB / Unknown Venipuncture / Unknown 02/22/2024 10:32 PM CDT 02/22/2024 10:37 PM CDT La CUMMINGS-C LAB - BLOOD ORDER DOT Performing Organization Address City/[facility]/ZIP Co de Phone Number LABORATORY [facility] Care Lab [address] Lab (1st floor, no room number) [place] [address] * Blood Culture Arm, Left (02/22/2024 10:32 PM CDT) Culture No Growth 02/28/2024 1:05 AM CDT [facility] LABORATORY Blood STRUCTURE OF LEFT UPPER LIMB / Unknown Venipuncture / Unknown 02/22/2024 10:32 PM CDT 02/22/2024 10:37 PM CDT La CUMMINGS-C LAB - MICRO GENER AL ORDERABLES [facility] LABORATORY [facility] Inf. Diseases Diag. Lab [address] [facility] [place] [address], [facility] * Blood Culture Arm, Left (02/22/2024 10:32 PM CDT) Culture No Growth 02/28/2024 1:05 AM CDT [facility]ORAT[facility] Blood STRUCTURE OF LEFT UPPER LIMB / Unknown Venipuncture / Unknown 02/22/2024 10:32 PM CDT 02/22/2024 10:37 PM CDT La Castaneda PA-C LAB - MICRO GENER AL ORDERABLES [facility]ORAT[facility] Inf. Diseases Diag. Lab [address] [facility] [place] [address], [facility] * (ABNORMAL) Lactic Acid Whole Blood w/ 1x repeat in 2 hrs when >2 (02/22/2024 10:02 PM CDT) Lactic Acid, Initial 2.4(H) 0.7 - 2.0 mmol/L 02/22/2024 10:07 PM CDT LABORATORY Blood STRUCTURE OF LEFT HAND / Unknown Venipuncture / Unknown 02/22/2024 10:02 PM CDT 02/22/2024 10:05 PM CDT La Castaneda PA-C LAB - BLOOD ORDER DOT LABORATORY [facility] Acute Care Lab [address] [facility] Lab (1st floor, no room number) [place] [address], [facility] * (ABNORMAL) Urine Culture (02/22/2024 [...] GENER AL ORDERABLES [facility] LABORATORY [facility] Inf. Diseases Diag. Lab [address] [facility] [place] [address] * (ABNORMAL) UA with Microscopic (02/22/2024 7:06 PM CDT) Color Urine Candler(A) Colorless, Straw, Light Yellow, Yellow 02/22/2024 7:42 PM CDT [facility] LABORATORY Appearance Urine Slightly Cloudy(A) Clear 02/22/2024 7:42 PM CDT [facility] LABORATORY Glucose Urine Negative Negative mg/dL 02/22/2024 7:42 PM CDT [facility] LABORATORY Bilirubin Urine Negative Negative 7:42 PM CDT [facility] LABORATORY Ketones Urine Negative Negative mg/dL 02/22/2024 7:42 PM CDT RH LABORATORY Specific [place] Urine 1.018 1.003 - 1.035 02/22/2024 7:42 [...] PA-C LAB - URINE ORDER DOT LABORATORY [facility] Acute Care Lab [address] Lab (1st floor, no room number) [place] [address] * Chest XR, PA & LAT (02/22/2024 2:34 PM CDT) Anatomical Region Laterality Modality Chest Digital Radiogra phy 02/22/2024 2:34 PM CDT Impressions 02/22/2024 3:01 PM CDT IMPRESSION: Negative chest. Narrative 02/22/2024 3:01 PM CDT EXAM: XR CHEST 2 VIEWS LOCATION: [facility] DATE: 02/22/2024 INDICATION: rigors, recent surgery, ? PNA COMPARISON: 04/08/2023 Procedure Note Pantera Soriano MD - 02/22/2024 EXAM: XR CHEST 2 VIEWS LOCATION: [facility] DATE: 02/22/2024 INDICATION: rigors, recent surgery, [...] CDT EXAM: CT HEAD W/O CONTRAST LOCATION: [facility] DATE: 02/22/2024 INDICATION: recent rhinoplasty, ? [...] 02/22/2024 EXAM: CT HEAD W/O CONTRAST LOCATION: [facility] DATE: 02/22/2024 INDICATION: recent rhinoplasty, ? [...] 1. Normal head CT. Fam Rodriguez MD [facility] ORDERABLES * (ABNORMAL) Verigene GN Panel [...] GENER AL ORDERABLES [facility] LABORATORY [facility] Inf. Diseases Diag. Lab [address] [facility] [place] [address], [facility] * (ABNORMAL) Blood Culture Arm, [...] GENER AL ORDERABLES [facility]ORAT[facility] Inf. Diseases Diag. Lab [address] [facility] [place] [address], [facility] * (ABNORMAL) Magnesium (02/22/2024 1:51 PM CDT) Magnesium 1.5(L) 1.7 - 2.3 mg/dL 02/22/2024 6:19 PM CDT LABORATORY Blood STRUCTURE OF LEFT UPPER LIMB / Unknown Venipuncture / Unknown 02/22/2024 1:51 PM CDT 02/22/2024 2:01 PM CDT La Castaneda PA-C LAB - BLOOD ORDER DOT LABORATORY [facility] Acute Care Lab [address] Lab (1st floor, no room number) [place] [address], [facility] * (ABNORMAL) CBC with platelets and differential (02/22/2024 1:51 PM CDT) [facility] Signature WBC Count 5.1 4.0 - [...] MD LAB - BLOOD ORDER DOT LABORATORY [facility] Acute Care Lab [address] [facility] Lab (1st floor, no room number) [place] [address] * (ABNORMAL) Procalcitonin (02/22/2024 1:51 PM [...] See Procalcitonin Guidance document for more details. [email or web address]/documents/yfefx-[email or web address]-mlwhqowl-on-ant ibiot [email or web address] Factors that may affect PCT levels (not [...] Rodriguez MD LAB - BLOOD ORDER DOT [facility] Acute Care Lab [address] [facility] Lab (1st floor, no room number) [place] [address], [facility] * Blood Culture Arm, Left (02/22/2024 1:51 PM CDT) Culture No Growth 02/27/2024 3:32 PM CDT [facility] LABORATORY Blood STRUCTURE OF LEFT UPPER LIMB / Unknown Venipuncture / Unknown 02/22/2024 1:51 PM CDT 02/22/2024 2:01 PM CDT Fam Rodriguez MD LAB - MICRO GENER AL ORDERABLES Performing Organization Address City/[facility]/ZIP Co de Phone Number [facility] IDD LABORATORY [facility] Inf. Diseases Diag. Lab [address] [facility], [address] [place] [address], [facility] * (ABNORMAL) Comprehensive metabolic panel (02/22/2024 1:51 PM CDT) [facility] Sodium 140 135 - 145 mmol/L 02/22/2024 [...] LAB - BLOOD ORDER DOT RH LABORATORY [facility] Acute Care Lab [address] [facility] Lab (1st floor, no room number) [place] [address] * EKG 12-lead, tracing only (02/22/2024 1:20 PM CDT) Systolic Blood Pressure mmHg RADIOLOGY RESULTS Diastolic Blood Pressure mmHg RADIOLOGY RESULTS Ventricular Rate 99 BPM RAD IOLOGY RESULTS Atrial Rate 99 BPM RADIOLOG Y RESULTS TX Interval 198 ms RADIOLOG Y RESULTS QRS Duration 92 ms RADIOLO GY RESULTS QT 372 ms RADIOLOGY RESULTS QTc 477 ms RADIOLOGY RESULTS P [place] 12 degrees RADIOLOGY RESULTS R AXIS 46 degrees RADIOLOGY RESULTS T [place] -16 degrees RADIOLOGY RESULTS Interpretation ECG Sinus rhythm Incomplete right bundle branch block Cannot rule out Anterior infarct , age undetermined Abnormal ECG When compared with ECG of 24-JAN-2006 18:40, Significant changes have occurred Confirmed by - EMERGENCY ROOM, PHYSICIAN (Liliana), editor trade journal ERIN HERNANDEZ (Giorgi) on 02/24/2024 7:24:18 AM [...] Monae Lacy RN)[phone] (Stopped - Provider: Natalie yWnne, BERENICE) tiZANidine (ZANAFLEX) tablet 2-4 mg (CANCELED) [...] provider. documented in this encounter Care Teams Milk Collector Relationship Specialty Start Date End Date [facility]- [address] [place] [address] PCP - General 03/29/21 Susan Doshi MD [address] [address] 03/29/21 documented as of this encounter
--- OUTSIDE RECORDS SUMMARY | 2024-05-06 12:57 | XMS_ITS | Clinical Summary ---
Author Organization [facility] Address [address] [place] [address] Care Team Providers Care Industrial Automation Engineer Name Role Phone [facility]- Primary Care Provider Susan Doshi MD [...] - 02/25/2024 2:10 PM CDT Hospital Encounter [facility] Observation Dept [address] [place] [address] Fam Rodriguez MD Abdissa, Mesfin [...] of3 resultswithin the time period is included. [facility] WBC Count 2.9(L) 4.0 - 11.0 10e3/uL [...] - BLOOD ORDERABL ES Performing Organization Address [facility]/ZIP Co de Phone Number LABORATORY [facility] Acute Care Lab [address] Lab (1st floor, no room number) [address] * Magnesium (02/25/2024 7:04 AM CDT) Only the most recent of4 resultswithin the time period is included. Magnesium 2.0 1.7 - 2.3 mg/dL 02/25/2024 7:52 AM CDT LABORATORY Blood STRUCTURE OF LEFT UPPER LIMB / Unknown Venipuncture / Unknown 02/25/2024 7:04 AM CDT 02/25/2024 7:21 AM CDT Socrates Bay MD LAB - BLOOD ORDERABL ES Performing Organization Address [facility] Co de Phone Number [facility] Acute Care Lab [address] Lab (1st floor, no room number) [address] * (ABNORMAL) Basic metabolic panel (02/25/2024 [...] MD LAB - BLOOD ORDERABL ES LABORATORY [facility] Acute Care Lab [address] [facility] Lab (1st floor, no room number) [place] [address], [facility] * (ABNORMAL) Procalcitonin (02/24/2024 5:50 AM CDT) [...] See Procalcitonin Guidance document for more details. [email or web address] Factors that may affect PCT levels (not [...] Bay MD LAB - BLOOD ORDERABL ES [facility] Acute Care Lab [address] [facility] Lab (1st floor, no room number) [place] [address], [facility] * (ABNORMAL) CBC with platelets (02/24/2024 5:50 [...] LAB - BLOOD ORDERABL ES RH LABORATORY [facility] Acute Care Lab [address] Lab (1st floor, no room number) [place] [address] * Lactic acid whole blood (02/22/2024 11:47 PM CDT) Lactic Acid 0.9 0.7 - 2.0 mmol/L 02/22/2024 11:51 PM CDT RH LABORATORY Blood STRUCTURE OF LEFT HAND / Unknown Venipuncture / Unknown 02/22/2024 11:47 PM CDT 02/22/2024 11:49 PM CDT La Castaneda PA-C LAB - BLOOD ORDER DOT LABORATORY [facility] Acute Care Lab [address] Lab (1st floor, no room number) [place] [address] * (ABNORMAL) CRP inflammation (02/22/2024 10:32 PM CDT) CRP Inflammation 42.29(H) <5.00 mg/L 02/22/2024 10:58 PM CDT RH LABORATORY Blood STRUCTURE OF LEFT UPPER LIMB / Unknown Venipuncture / Unknown 02/22/2024 10:32 PM CDT 02/22/2024 10:37 PM CDT La Castaneda PA-C LAB - BLOOD ORDER DOT Performing Organization Address City/[facility]/ZIP Co de Phone Number LABORATORY [facility] Acute [facility] Lab [address] Lab (1st floor, no room number) [place] [address] * Blood Culture Arm, Left (02/22/2024 10:32 PM CDT) Only the most recent of4 resultswithin the time period is included. Pathologist [facility] Culture No Growth 02/28/2024 1:05 AM CDT [facility] LABORATORY Blood STRUCTURE OF LEFT UPPER LIMB / Unknown Venipuncture / Unknown 02/22/2024 10:32 PM CDT 02/22/2024 10:37 PM CDT La Castaneda PA-C LAB - MICRO GENER AL ORDERABLES [facility] IDD LABORATORY [facility] Inf. Diseases Diag. Lab [address] [facility], [address] [place] [address], [facility] * (ABNORMAL) Lactic Acid Whole Blood w/ 1x repeat in 2 hrs when >2 (02/22/2024 10:02 PM CDT) Lactic Acid, Initial 2.4(H) 0.7 - 2.0 mmol/L 02/22/2024 10:07 PM CDT RH LABORATORY Blood STRUCTURE OF LEFT HAND / Unknown Venipuncture / Unknown 02/22/2024 10:02 PM CDT 02/22/2024 10:05 PM CDT La Castaneda PA-C LAB - BLOOD ORDER DOT RH LABORATORY [facility] Acute Care Lab [address] Lab (1st floor, no room number) [place] [address], [facility] * (ABNORMAL) UA with Microscopic (02/22/2024 7:06 PM CDT) Color Urine Placer(A) Colorless, Straw, Light Yellow, Yellow 02/22/2024 7:42 PM CDT LABORATORY Appearance Urine Slightly Cloudy(A) Clear 02/22/2024 7:42 PM CDT LABORATORY Glucose Urine Negative Negative mg/dL 02/22/2024 7:42 PM CDT LABORATORY Bilirubin Urine Negative Negative 7:42 PM CDT LABORATORY Ketones Urine Negative Negative mg/dL 02/22/2024 7:42 PM CDT LABORATORY Specific [place] Urine 1.018 1.003 - 1.035 02/22/2024 7:42 [...] PA-C LAB - URINE ORDER DOT LABORATORY [facility] Acute Care Lab [address] [facility] Lab (1st floor, no room number) [place] [address] * (ABNORMAL) Urine Culture (02/22/2024 7:06 [...] MICRO GENER AL ORDERABLES UU IDD LABORATORY [facility] Inf. Diseases Diag. Lab [address] [facility], [address] [place] [address], [facility] * Chest XR, PA & LAT (02/22/2024 2:34 PM CDT) Anatomical Region Laterality Modality Chest Digital Radiogra phy 02/22/2024 2:34 PM CDT Impressions 02/22/2024 3:01 PM CDT IMPRESSION: Negative chest. Narrative 02/22/2024 3:01 PM CDT EXAM: XR CHEST 2 VIEWS LOCATION: [facility] DATE: 02/22/2024 INDICATION: rigors, recent surgery, ? PNA COMPARISON: 04/08/2023 Procedure Note Pantera Soriano MD - 02/22/2024 EXAM: XR CHEST 2 VIEWS LOCATION: [facility] DATE: 02/22/2024 INDICATION: rigors, recent surgery, [...] CDT EXAM: CT HEAD W/O CONTRAST LOCATION: [facility] DATE: 02/22/2024 INDICATION: recent rhinoplasty, ? [...] 02/22/2024 EXAM: CT HEAD W/O CONTRAST LOCATION: [facility] DATE: 02/22/2024 INDICATION: recent rhinoplasty, ? [...] LABORATORY Comment:Positive for Klebsie lla oxytoca by Toothpickigene multiplex nucleic acid test. Final identification and [...] 02/23/2024 9:59 AM CDT Specimen tested with Toothpickigene multiplex, gram-negative blood culture nucleic acid test for the following targets: Acinetobacter species, Citrobacter species, Enterobacter species, Proteus species, Escherichia coli, Klebsiella pneumoniae, Klebsiella oxytoca, Pseudomonas aeruginosa, and the following resistance markers: CTX-M, KPC, NDM, VIM, IMP and OXA. Fam Rodriguez MD LAB - MICRO GENER AL ORDERABLES UU IDD LABORATORY [facility] Inf. Diseases Diag. Lab [address] [facility], [address] [place], [place] [address] * (ABNORMAL) Comprehensive metabolic panel (02/22/2024 1:51 PM CDT) [facility] Sodium 140 135 - 145 mmol/L [...] MD LAB - BLOOD ORDER DOT LABORATORY [facility] Acute Care Lab [address] Lab (1st floor, no room number) [place] [address] * EKG 12-lead, tracing only (02/22/2024 1:20 PM CDT) Systolic Blood Pressure mmHg RADIOLOGY RESULTS Diastolic Blood Pressure mmHg RADIOLOGY RESULTS Ventricular Rate 99 BPM RAD IOLOGY RESULTS Atrial Rate 99 BPM RADIOLOG Y RESULTS MS Interval 198 ms RADIOLOG Y RESULTS QRS Duration 92 ms RADIOLO GY RESULTS QT 372 ms RADIOLOGY RESULTS QTc 477 ms RADIOLOGY RESULTS P [place] 12 degrees RADIOLOGY RESULTS R AXIS 46 degrees RADIOLOGY RESULTS T [place] -16 degrees RADIOLOGY RESULTS Interpretation ECG Sinus rhythm Incomplete right bundle branch block Cannot rule out Anterior infarct , age undetermined Abnormal ECG When compared with ECG of 24-JAN-2006 18:40, Significant changes have occurred Confirmed by - EMERGENCY ROOM, PHYSICIAN ([id number]), pictures editor ERIN HERNANDEZ (Giorgi) on 02/24/2024 7:24:18 AM RADIOLOGY RESULTS 02/22/2024 1:20 PM CDT 02/24/2024 7:24 AM CDT Adan Pitt MD ECG ORDERABLES RADIOLOGY RESULTS from Last 3 Months Advance Directives For more information, please contact: [phone] * Full Code (Latest Code Status on File) Date Activated Date Inactivated Comments 02/22/2024 5:56 PM 02/25/2024 4:10 PM All basic an d advanced life-sustaining interventions are performed as appropriate Question Answer Comments Code status determined by: Discussion with hope nt/ legal decision maker Care Teams Industrial Automation Engineer Relationship Specialty Start Date End Date [facility]- [address] [place], [place] [id number] PCP - General 03/29/21 Susan Doshi MD [address] [place] [address] 03/29/21
--- OUTSIDE RECORDS SUMMARY | 2024-05-06 12:57 | XMS_ITS | Continuity of Care Document ---
Author Organization [facility] Address [address] [place] [address] Phone Care Team Providers Care Ultrasound Technologist Sonographer Name Role Phone Wong Rosas MD Unavailable Unavailable Allergies, Adverse Reactions, Alerts Substance Reaction Status Criticality nickel Active No Information latex Active No Information acetaminophen Active No Information Advance Directives Directive Yes / No Effective Date File Name No Information Encounters Encounter Description Practice Location Reason(s) For Visit Diagnoses Date Provider Providers Copied on Encounter [facility], [address], [place], [place], [id number], tel:[phone] [facility] No Information Ralph Back. [facility], [address] [place] [address], [address], [facility], . tel:[phone] Referring Provider: Wong Valle, [facility] [address] [place] [address], [facility] [address], [place], [facility]. tel:[phone] Family History Family Member Type Diagnosis Age At Onset Mother Problem (finding) Cancer, unknown type Father Problem (finding) Diabetes mellitus Father Problem (finding) Cardiovascular disease Mother Problem (finding) Ankylosing spondylitis Payers Payer name Insurance type Covered constitution party ID Abelardoa froylanzhanna(s) Delmajack [facility] AVILA [id number] Social History Type Description Quantity Date Captured Comments Alcohol Use Details No Caffeine Use Details Unknown Tobacco Use Status No Information Smoking Status Never smoker Non-Smoking Tobacco Use Details : No Details Available : No Details Available Sex Female Vital Signs Date / Time: Height Weight BMI Pulse Rate Blood Pressure Temperature Respiratory Rate Body Surface Area Head Circumference Head Circ. Percentile Wt./Justin. Percentile BMI percentile Pulse Ox Inhaled Ox 9:26 AM 65.75 in 72.121 kg (159.00 lbs) 25.8 6 kg/m eter (2) Chief Complaint And Reason For Visit No [...]
--- NOTE | 2024-05-06 13:00 | CRLHL7_ITS ---
For Patients: As a result of the Cures Act, medical imaging exams and procedure reports are released immediately into your electronic medical record. You may view this report before your referring provider. If you have questions, please contact your health care provider. Indication: Chronic sinusitis. Technique: Noncontrast axial CT of the paranasal sinuses with coronal reformats are provided. Compared to prior study from April 20, 2019. Findings: Stable 4 millimeter mucous retention cyst or polyp within the anterior aspect of the left maxillary sinus with interval development of a 2 millimeter mucous retention cyst or polyp along the medial wall of the left maxillary sinus. Stable 2-3 millimeter thick mucosal thickening extending into the left ostiomeatal complex resulting in no significant narrowing. The remainder of the visualized paranasal sinuses are clear. The ostiomeatal complexes are patent bilaterally. The visualized intraorbital contents appear within normal limits. Impression: 1. Minor inflammatory changes within the left maxillary sinus as outlined above. 2. Otherwise, unremarkable CT of the paranasal sinuses. Please note that all CT scans at this facility use dose modulation, iterative reconstruction, and/or weight-based dosing when appropriate to reduce radiation dose to as low as reasonably achievable. Dictated by Talat Cole MD @ 05/08/2024 9:58:42 AM (Electronically Signed)
== END 2024-05-06 12:52 | disposition home or self-care (01) ==
LOC: CT 12:53
PROVIDERS: PCP Family Medicine; Visit Provider Otolaryngology
DX: J32.9 Chronic sinusitis, unspecified (principal); J32.0 Chronic maxillary sinusitis
CPT/HCPCS: 70486

== ENCOUNTER 2024-12-07 11:16 | Outpatient (CLI) | payer OTHER, SELFPAY | END 2024-12-07 11:17 | disposition home or self-care (01) | PROVIDERS: PCP Family Medicine; Visit Provider Family Medicine | DX: M35.05 Sjogren syndrome with inflammatory arthritis (principal); G90.9 Disorder of the autonomic nervous system, unspecified; G43.909 Migraine, unspecified, not intractable, without status migrainosus; R53.83 Other fatigue | CPT/HCPCS: 80048; 80076; 82784; 82787 ==

== ENCOUNTER 2025-06-28 15:20 | Outpatient (CLI) | payer OTHER, SELFPAY | END 2025-06-28 15:21 | disposition home or self-care (01) | PROVIDERS: PCP Family Medicine; Visit Provider Family Medicine | DX: D84.9 Immunodeficiency, unspecified (principal); G90.9 Disorder of the autonomic nervous system, unspecified; M54.50 Low back pain, unspecified; M25.50 Pain in unspecified joint | CPT/HCPCS: 80053; 82784 ==